=== PATIENT | male | born 1945 | race Caucasian/White ===

== ENCOUNTER 2019-01-07 10:00 | Outpatient (CLI) | payer MEDICARE, OTHER ==
--- NOTE | 2019-01-07 10:12 | RAD ---
Chest 2 views HISTORY: Dyspnea. COMPARISON: 06/14/2015. FINDINGS: Cardiac silhouette and pulmonary vasculature are unremarkable. Mediastinum is midline with aortic calcification. Lungs remain hyperinflated. No confluent airspace consolidation, pneumothorax, or pleural fluid. IMPRESSION: Atherosclerosis. Chronic-type findings are stable.
== END 2019-01-07 10:01 | disposition home or self-care (01) ==
LOC: RAD 10:00
PROVIDERS: ATTEND Internal Medicine Critical Care Medicine
DX: R06.00 Dyspnea, unspecified (principal); I70.0 Atherosclerosis of aorta
CPT/HCPCS: 71046

== ENCOUNTER 2019-04-09 10:32 | Inpatient (IN) | payer MEDICARE, BC ==
[2019-04-09 11:16] LABS: #Monocytes 0.4 thou/uL (0.11-0.59); #Neutrophils 5.3 thou/uL (1.40-6.50); %Basophils 0.6 % (0.0-1.0); %Eosinophils 0.5 % (0.0-10.0); %Lymphocytes 15.2 % (21.0-51.0); %Neutrophils 77.7 % (42.0-75.0); Hemoglobin 14.5 g/dL (14.0-18.0); Mean Corpuscular HGB CONC 33.5 g/dL (32.0-36.0); Mean Corpuscular Hemoglobin 34.1 pg (27.0-31.0); Platelet Count 178 thou/uL (130-400); RBC Distribution Width 13.3 % (11.5-14.5); Red Blood Cell (RBC) Count 4.26 mill/uL (4.70-6.10); White Blood Cell (WBC) Count 6.8 thou/uL (4.8-10.8)
[2019-04-09] MEDS ORDERED: methylPREDNISolone Sod Succ/PF 125 MG/2 ML VIAL ONE (11:16)
[2019-04-09 11:41] LABS: ALT (SGPT) 9 U/L (8-55); AST (SGOT) 32 U/L (5-34); Albumin 3.9 g/dL (3.4-4.8); Alkaline Phosphatase 87 U/L (40-150); Anion Gap 16 mmol/L (10-20); BUN (Urea Nitrogen) 16 mg/dL (8.4-25.7); Bilirubin, Total 1.3 mg/dL (0.2-1.2); Calc. Creatinine Clearance 0 mL/min (70-130); Calcium 9.5 mg/dL (7.8-10.44); Carbon Dioxide 22 mmol/L (23-31); Chloride 102 mmol/L (98-107); Estimated GFR-MDRD 57; Globulin 3.6 g/dL (2.4-3.5); Glucose 92 mg/dL (83-110); Potassium 5.8 mmol/L (3.5-5.1); Protein, Total 7.5 g/dL (5.8-8.1); Sodium 134 mmol/L (136-145)
[2019-04-09 11:41] LABS: Actual Bicarbonate (HCO3a) 19.4 mEq/L (22-28); Analyzer IN Cardio ER; Base Excess (BEa) -3.1 mEq/L (-2.0 to +3.0); CO2 Tension 28.5 mmHg (35.0-45.0); Calcium, Ionized 1.12 mmol/L (1.12-1.30); Carboxyhemoglobin (COHb) 1.6 gm% (0.0-3.0); Hemoglobin (Hb) 14.5 g/dL (14.0-18.0); O2 Tension (PaO2) 68.3 mmHg (> 70.0); Potassium - ABG Lab 4.68 mmol/L (3.70-5.30); pH, Arterial 7.45 (7.35-7.45)
[2019-04-09 11:42] LABS: ALV-art Gradient 45.805 (0-20); Puncture Site RRA
--- NOTE | 2019-04-09 11:59 | RAD ---
CHEST ONE VIEW: HISTORY: Shortness of breath. Chest pain. COMPARISON: Radiograph from 01/07/2019. FINDINGS: Heart size is enlarged. Moderate effusions. Mild pulmonary edema. No pneumothorax. IMPRESSION: Findings of congestive heart failure. POS: CET
[2019-04-09 12:00] LABS: CKMB 4.1 ng/mL (0-6.6)
[2019-04-09] MEDS ORDERED: Furosemide 40 MG/4 ML VIAL ONE ×2 (12:29→12:30)
[2019-04-09] MEDS ORDERED: Diltiazem 125 MG/25 ML ONE (12:29)
[2019-04-09] MEDS ORDERED: Lorazepam 0.5 MG TAB PO PRN (15:30)
[2019-04-09] MEDS ORDERED: Ondansetron PF 4 MG/2 ML Vial IVP PRN (15:37)
[2019-04-09] MEDS ORDERED: Bisacodyl 5 MG TAB PO PRN (15:37)
[2019-04-09] MEDS ORDERED: Acetaminophen 325 MG TAB PO PRN (15:37)
[2019-04-09] MEDS ORDERED: Diltiazem 125 MG in Sodium Chloride 0.9% 100 ML IVPB SCH (15:45)
[2019-04-09 15:48] LABS: Troponin I 0.109 ng/mL (< 0.028)
--- NOTE | 2019-04-09 16:27 | HP ---
PRIMARY CARE PROVIDER: None. STEEL FINISHER: Dr. Reddy. CHIEF COMPLAINT: Shortness of breath. HISTORY OF PRESENT ILLNESS: Mr. Zaidi is a pleasant 74-year-old gentleman, who was seen at [facility] on April 09, 2019. He is accompanied by his son, Gene, who works in the intensive care unit at [facility]. He has a history of COPD. He is followed by Dr. Reddy. Over the last few weeks, he has been having shortness of breath. The shortness of breath is worse with exertion. He also endorses orthopnea and paroxysmal nocturnal dyspnea. He denies lower extremity edema. He denies any weight gain. He reports that his chest is sore from coughing. He reports coughing a lot, with production of clear sputum. He reports on and off palpitations. He reports that his shortness of breath is worse particularly in the morning. He used to sleep on his belly in the past, but is now sleeping on his back with pillows. REVIEW OF SYSTEMS: All other systems were reviewed and found to be negative. PAST MEDICAL HISTORY: COPD and hepatitis C, treated with 1 year of medication. PAST SURGICAL HISTORY: Plastic surgery to ear and face from an accident. SOCIAL HISTORY: The patient reports drinking 4 to 5 beers a day. He smokes 1 pack of cigarettes a day. He denies any recreational drug use. FAMILY HISTORY: No family history of coronary artery disease. ALLERGIES: CODEINE. CURRENT MEDICATIONS: These need to be clarified. He is takin. Seroquel 50 mg at bedtime. 2. Ativan 0.5 mg 2 times a day. PHYSICAL EXAMINATION: GENERAL: On examination, Mr. Zaidi is awake and alert, not in acute distress. VITAL SIGNS: Blood pressure is 146/115, pulse 108, respiratory rate 18, and oxygen saturation 96% on room air. He is afebrile. EYES: No scleral icterus. No conjunctival pallor. ENT: Moist mucosal membranes. No oropharyngeal erythema or exudates. NECK: Supple, nontender. Trachea is midline. He has jugular venous distention. RESPIRATORY: Accessory muscles of breathing are active. Chest wall movements are symmetric bilaterally. Lung examination reveals diffuse expiratory wheeze. CARDIOVASCULAR: S1 and S2 are heard, tachycardic and regular. Peripheral pulses palpable. No carotid bruit. No pericardial rub. ABDOMEN: Soft, nontender, bowel sounds heard. NEUROLOGIC: Cranial nerves 2 through 12 are intact. MUSCULOSKELETAL: Power is 5/5 in all 4 extremities. SKIN: No rashes or subcutaneous nodules. Trace lower extremity edema. LYMPHATIC: No cervical lymphadenopathy. PSYCHIATRIC: Normal mood. Normal affect. The patient is oriented to person, place, and time. BODY HABITUS: The patient appears malnourished. LABORATORY AND DIAGNOSTIC DATA: Mr. Zaidi's labs and investigations were reviewed. Electrocardiogram shows atrial fibrillation with rapid ventricular response, no ST changes to suggest acute coronary syndrome. Chest x-ray shows moderate effusions and mild pulmonary edema. He has an unremarkable CBC. Decreased sodium of 134, elevated potassium of 5.8, decreased carbon dioxide of 22, normal blood urea nitrogen, normal creatinine, normal magnesium, elevated total bilirubin of 1.3, normal AST, normal ALT, and normal albumin. Troponin I is indeterminate at 0.144. BNP is elevated at 1588. ASSESSMENT AND PLAN: Mr. Zaidi is a pleasant 74-year-old gentleman, who was seen at [facility] on April 09, 2019. His problem list includes: 1. Atrial fibrillation with rapid ventricular response: Mr. Zaidi is presenting with atrial fibrillation with rapid ventricular response. He will be admitted to the hospital for further management. We will start him on a Cardizem drip. We will check 2D echocardiogram. His fall risk will need to be assessed. Physical Therapy Service will be consulted for the same. Once he is deemed safe for anticoagulation, he can be started on anticoagulation. For now, I am starting him on deep venous thrombosis prophylaxis with SCDs. 2. heart failure: The patient is also presenting with congestive heart failure, most likely precipitated by atrial fibrillation with rapid ventricular response. We will check 2D echocardiogram. We will administer furosemide. 3. Hyperkalemia: Mild, likely asymptomatic. We will administer Kayexalate and recheck. 4. Tobacco abuse: The patient will be started on nicotine replacement therapy. 5. Alcohol abuse: We will start him on ASE protocol. 6. Chronic obstructive pulmonary disease: He will be started on bronchodilators. He is currently wheezing and appears to have a significant component of chronic obstructive pulmonary disease to his shortness of breath. LEVEL OF RISK: Moderate. LEVEL OF COMPLEXITY: Moderate. Many thanks for allowing me to participate in your patient's care. Please feel free to contact me with any questions or concerns. Job ID: [id number]
[2019-04-09 18:11] LABS: Troponin I 0.084 ng/mL (< 0.028)
[2019-04-09] MEDS: Nicotine 21 MG PATCH TD SCH (18:26)
[2019-04-10] MEDS: Furosemide 40 MG/4 ML VIAL SLOW IVP SCH ×2 (05:21→15:11)
[2019-04-10 05:33] LABS: #Lymphocytes 0.5 thou/uL (1.20-3.40); #Monocytes 0.4 thou/uL (0.11-0.59); #Neutrophils 6.4 thou/uL (1.40-6.50); %Eosinophils 0.2 % (0.0-10.0); %Lymphocytes 6.8 % (21.0-51.0); %Monocytes 5.6 % (0.0-10.0); %Neutrophils 87.3 % (42.0-75.0); Hemoglobin 12.4 g/dL (14.0-18.0); Mean Corpuscular HGB CONC 32.6 g/dL (32.0-36.0); Mean Corpuscular Hemoglobin 33.1 pg (27.0-31.0); Mean Platelet Volume 8.2 fL (7.4-10.4); Platelet Count 166 thou/uL (130-400); RBC Distribution Width 13.3 % (11.5-14.5); Red Blood Cell (RBC) Count 3.74 mill/uL (4.70-6.10); White Blood Cell (WBC) Count 7.3 thou/uL (4.8-10.8)
[2019-04-10 06:01] LABS: Anion Gap 12 mmol/L (10-20); BUN (Urea Nitrogen) 22 mg/dL (8.4-25.7); Calc. Creatinine Clearance 52 mL/min (70-130); Calcium 8.8 mg/dL (7.8-10.44); Carbon Dioxide 24 mmol/L (23-31); Chloride 106 mmol/L (98-107); Estimated GFR-MDRD 59; Glucose 143 mg/dL (83-110); Potassium 3.9 mmol/L (3.5-5.1); Sodium 138 mmol/L (136-145)
[2019-04-10] MEDS ORDERED: Enoxaparin Sodium 40 MG/0.4 ML SYRINGE SC SCH (09:00)
[2019-04-10] MEDS ORDERED: Diltiazem 125 MG in Sodium Chloride 0.9% 100 ML IVPB SCH (15:15)
--- NOTE | 2019-04-10 15:59 | PDOC.PN ---
- Subjective Encounter Start Date: 04/10/19 Encounter Start Time: 07:40 Pt seen for followup re: afib with rvr. Did not sleep well. - Objective Resuscitation Status - Order Detail: 04/09/19 15:37 Resuscitation Status Routine Resuscitation Status: FULL: Full Resuscitation Discussed with: PATIENT AND SON JOAO Vital Signs & Weight: Vital Signs (12 hours) Temp Pulse Resp BP Pulse Ox 04/10/19 14:19 137 H 16 97 04/10/19 08:00 97 04/10/19 07:10 108 H 18 98 04/10/19 07:05 98.4 F 131 H 18 150/95 H 97 04/10/19 04:00 97.5 F L 127 H 20 137/103 H 96 Weight Admit Weight 146 lb Weight 146 lb Result Diagrams: 04/10/19 04:57 04/10/19 04:57 Dx/Plan (1) Atrial fibrillation with RVR Code(s): I48.91 - UNSPECIFIED ATRIAL FIBRILLATION Status: Acute Comment: Titrate cardizem drip PRN (2) CHF (congestive heart failure), NYHA class III Code(s): I50.9 - HEART FAILURE, UNSPECIFIED Status: Acute Comment: await 2D echo, continue furosemide (3) COPD (chronic obstructive pulmonary disease) Status: Chronic Comment: stable (4) Tobacco abuse Code(s): Z72.0 - TOBACCO USE Status: Chronic Comment: continue nicotine patch (5) Alcohol abuse Code(s): F10.10 - ALCOHOL ABUSE, UNCOMPLICATED Status: Chronic Comment: continue ASE protocol - Plan * . Review of Systems - Review of Systems Respiratory: Cough, SOB with Excertion, Sputum. negative: Dry, Shortness of Breath, Hemoptysis, Pleuritic Pain, Wheezing Cardiovascular: palpitations. negative: chest pain, orthopnea, paroxysmal nocturnal dyspnea, edema, light headedness - Medications/Allergies Allergies/Adverse Reactions: Allergies Allergy/AdvReac Type Severity Reaction Status Date / Time codeine Allergy Severe Verified 06/15/15 19:44 Medications: Current Medications Acetaminophen (Tylenol) 650 mg PO Q4H PRN PRN Reason: Headache/Fever/Mild Pain (1-3) Albuterol/Ipratropium (Duoneb) 3 ml NEB [id number] JUNAID Last Admin: 04/10/19 14:19 Dose: 3 ml Albuterol/Ipratropium (Duoneb) 3 ml NEB [id number] PRN PRN Reason: SOB &/or Wheezing Bisacodyl (Dulcolax) 10 mg PO DAILYPRN PRN PRN Reason: Constipation Furosemide (Lasix) 40 mg SLOW IVP 0600,1400 [facility] Last Admin: 04/10/19 15:11 Dose: 40 mg Diltiazem HCl 125 mg/ Sodium (Chloride) 125 mls @ 10 mls/hr IVPB INF JUNAID; Protocol Lorazepam (Ativan) 0.5 mg PO BID PRN PRN Reason: Anxiety Last Admin: 04/09/19 21:23 Dose: 0.5 mg Nicotine (Nicoderm Patch) 21 mg TD Q24HR [facility] Last Admin: 04/09/19 18:26 Dose: 21 mg Ondansetron HCl (Zofran) 4 mg IVP Q6H PRN PRN Reason: Nausea/Vomiting Quetiapine Fumarate (Seroquel) 50 mg PO HS [facility] Last Admin: 04/09/19 21:16 Dose: 50 mg
[2019-04-10] MEDS ORDERED: Amiodarone 150 MG, Admixture Fee 1 EACH in Dextrose 5% in Water 100 ML IVPB SCH (17:30)
[2019-04-10] MEDS ORDERED: Digoxin 0.5 MG/2 ML AMP SLOW IVP SCH (17:30)
--- NOTE | 2019-04-10 18:11 | CON ---
DATE OF CONSULTATION: HISTORY: Abelino Zaidi is a 74-year-old white male, admitted with atrial fibrillation with fast ventricular response. I did see him in August 2007 when he was referred for leg pain. He had normal peripheral pulses and he underwent lower extremity vascular Doppler here at [facility], which did not show any evidence of significant stenosis and was felt that his pain was not vascularly related. He now states over the last month he has had intermittent episodes of shortness of breath and has been seen by Dr. Reddy. Over the last month, he will become extremely short of breath with his heart beating very rapidly. He has felt this is probably due to anxiety or panic attacks due to losing his four and a half years ago, then his son four months ago. He was placed on anxiolytics and Seroquel by Dr. Reddy and that seemed to help his panic feeling; however, he states he still has the episodes of becoming short of breath and feeling his heart beating very rapidly. He ultimately came to the emergency room with that was found to be in atrial fibrillation with fast ventricular response. PAST MEDICAL HISTORY: COPD, hepatitis C, treated with one year medication. He denies any history of hypertension, diabetes, or hypercholesterolemia. OPERATIONS: Ear and face surgery after an accident. MEDICATIONS: 1. Lorazepam 0.5 mg p.r.n. 2. Seroquel 50 mg at bedtime. ALLERGIES: CODEINE. SOCIAL HISTORY: He smokes 1 pack per day. He drinks four or five beers per day. He has had life stresses as noted above with his 4-1/2 years ago and his son four months ago. FAMILY HISTORY: Negative for coronary artery disease. REVIEW OF SYSTEMS: A 10-point review of systems is otherwise unremarkable. PHYSICAL EXAMINATION: VITAL SIGNS: Blood pressure 136/89, pulse of 153, atrial fibrillation on the monitor. Currently he is on a Cardizem 10 mg/hour drip. HEENT: PERRL. NECK: Supple. CHEST: Reveals expiratory wheezing and decreased breath sounds at the bases. CARDIOVASCULAR: S1 and S2 normal without any S3, S4, or murmurs. ABDOMEN: Normal bowel sounds without tenderness or organomegaly. EXTREMITIES: Revealed no clubbing, cyanosis, or edema. NEUROLOGIC: Grossly intact. SKIN: Warm and dry. LABORATORY DATA: EKG reveals atrial fibrillation with fast ventricular response of 139 per minute, low QRS voltage in the limb leads. Chest x-ray reveals cardiomegaly with moderate effusions, mild pulmonary edema. Echocardiogram has been performed, apparently was not downloaded and could not read that at this time. Hemoglobin 12.4, hematocrit 38.0, white count 7,300. His hemoglobin did drop from 14.5 down to 12.4. INR 1.1. Ph of 7.45, pCO2 of 28.5, PO2 of 68.3. Sodium 138, potassium 3.9, chloride 106, carbon dioxide 24, BUN 22, and creatinine 1.21. Troponin I is up to 0.144. BNP 1588.2. IMPRESSION: 1. Atrial fibrillation with fast ventricular response associated with shortness of breath. He denies any chest discomfort. 2. Anxiety/depression. 3. Chronic obstructive pulmonary disease. 4. History of hepatitis C. 5. Drop in hemoglobin from 14.5 down to 12.4 since he was admitted. 6. Probable congestive heart failure with elevated BNP and bilateral pleural effusions, increased pulmonary vascularity. It is unclear at this time this is due to systolic failure or diastolic failure from his atrial fibrillation with fast ventricular response. PLAN: Mr. Zaidi does not have any history of falls or gastrointestinal bleed in the past and should be anticoagulated. However, I am somewhat hesitant to do that with his recent fall in his hemoglobin. This will continue to be monitored and stool guaiacs will be performed. He will continue to be diuresed. I will give him one dose of digoxin 0.5 mg to hopefully slow his rate. He also will be started on amiodarone for better rate control. We will continue to follow the patient with you. Job ID: [id number]
[2019-04-10] MEDS ORDERED: predniSONE 20 MG TAB PO SCH (18:15)
[2019-04-10] MEDS: Nicotine 21 MG PATCH TD SCH (18:18)
[2019-04-10] MEDS: Amiodarone 450 MG in Dextrose 5% in Water 250 ML IVPB SCH (18:18)
--- NOTE | 2019-04-10 18:26 | CON ---
DATE OF CONSULTATION: 04/10/2019 SERVICE: Pulmonary medicine. HISTORY OF PRESENT ILLNESS: The patient is a very pleasant 74-year-old white male with past medical history significant for history of atrial fibrillation. This is back in the 70s. He has not been on any medication for that for very long period of time. Either way, about six weeks ago, he started to have progressive dyspnea, and orthopnea. He was coughing. It was bringing up some white phlegm. Ultimately , it got so severe that he was waking up coughing and choking and gasping in the middle of the night, not being able to catch his breath for upwards of an hour and a half. He presented to the emergency department. He was discovered to be in atrial fibrillation with a rapid rate. Overnight, he was diuresed. He is feeling much improved at this point, although he is not back to baseline yet. His heart rate still not quite under control. He specifically denies any fevers. PAST MEDICAL HISTORY: 1. Atrial fibrillation. 2. COPD. 3. Hepatitis C. PAST SURGICAL HISTORY: Ear and face surgery secondary to remote accident. FAMILY HISTORY: Noncontributory. SOCIAL HISTORY: He drinks four or five beers on a daily basis. He smokes a pack of cigarettes on a daily basis. He quit about five days ago. Prior to that, he logged greater than a 50-pack year history. He denies any street drugs. He has no exposure to chemicals, dust, asbestos, or tuberculosis. ALLERGIES: CODEINE. MEDICATIONS: List of his inpatient medications was reviewed. Couple of small updates were made. REVIEW OF SYSTEMS: General, head, ears, eyes, nose, throat, cardiovascular, respiratory, GI, , musculoskeletal, neurologic, and skin are negative except as mention in the HPI. PHYSICAL EXAMINATION: VITAL SIGNS: Afebrile, pulse 153, blood pressure 136/89, respirations 18, saturation 96% on room air. GENERAL: The patient is awake and alert, in no apparent distress. LUNGS: Good air entry. There is a prolonged expiratory phase. Rhonchi and wheezing were all present. Crackles are present in the dependent regions. HEART: Normal rate and regular. ABDOMEN: Soft, nontender, nondistended. Bowel sounds are positive. MUSCULOSKELETAL: No cyanosis or clubbing. There is 1 to 2+ pitting in the bilateral lower extremities. NEUROLOGIC: Grossly nonfocal. LABORATORY DATA: WBC 7.3, hemoglobin 12.4, platelets 166,000. INR 1.1. PH 7.45, pCO2 of 28, PO2 of 68. Basic metabolic profile is otherwise unremarkable. His creatinine is stable at 1.2. This is likely his baseline. Bilirubin 1.3. Liver function studies are otherwise unremarkable. Troponin is downtrending to 0.084 with a BNP at a historic high of 1,500. Urinalysis is negative. Plasma alcohol level is negative. Blood cultures x2, influenza A and B and group A strep of the throat is negative. IMAGING: Chest x-ray demonstrates bilateral pleural effusions that are likely layering. Cephalization of bilateral lung truong is present. There is cardiomegaly present though this is an AP film. ASSESSMENT: 1. Acute hypoxic respiratory failure, resolved. 2. Chronic obstructive pulmonary disease with acute exacerbation. 3. Atrial fibrillation with rapid ventricular response. DISCUSSION AND PLAN: Echocardiogram is currently pending. I agree with diuretics. We will get him down to euvolemia. I will put him on a brief five-day course of steroids. I will change nebulized medications over to p.r.n. as they are significantly driving his heart rate up. I will give him a 5-day course of antibiotic. At this point, he is close to euvolemia. As such, I will decrease his Lasix to once daily. 70 minutes have been devoted to this patient in various activities. I personally reviewed all imaging studies and laboratory data noted within this document. For fifty percent of this time, I was interacting with the patient at the bedside or coordinating care with the care team. For the remainder of the time I was immediately available to the patient in the hospital unit. Job ID: [id number] [facility]
[2019-04-10] MEDS ORDERED: Enoxaparin Sodium 60 MG/0.6 ML SYRINGE SC SCH (21:00)
[2019-04-10] MEDS: Doxycycline 100 MG CAP PO SCH (21:10)
[2019-04-11] MEDS: Amiodarone 450 MG in Dextrose 5% in Water 250 ML IVPB SCH (02:04)
[2019-04-11 05:45] LABS: #Lymphocytes 0.4 thou/uL (1.20-3.40); #Monocytes 0.1 thou/uL (0.11-0.59); #Neutrophils 8.4 thou/uL (1.40-6.50); %Basophils 0.1 % (0.0-1.0); %Eosinophils 0.5 % (0.0-10.0); %Lymphocytes 4.3 % (21.0-51.0); %Monocytes 1.4 % (0.0-10.0); %Neutrophils 93.8 % (42.0-75.0); Hemoglobin 12.7 g/dL (14.0-18.0); Mean Corpuscular Hemoglobin 33.5 pg (27.0-31.0); Mean Platelet Volume 8.2 fL (7.4-10.4); Platelet Count 162 thou/uL (130-400); RBC Distribution Width 13.5 % (11.5-14.5); Red Blood Cell (RBC) Count 3.78 mill/uL (4.70-6.10); White Blood Cell (WBC) Count 8.9 thou/uL (4.8-10.8)
[2019-04-11] MEDS: Furosemide 40 MG/4 ML VIAL SLOW IVP SCH (05:46)
[2019-04-11 06:16] LABS: Anion Gap 14 mmol/L (10-20); BUN (Urea Nitrogen) 27 mg/dL (8.4-25.7); Calc. Creatinine Clearance 46 mL/min (70-130); Calcium 8.8 mg/dL (7.8-10.44); Carbon Dioxide 23 mmol/L (23-31); Chloride 105 mmol/L (98-107); Estimated GFR-MDRD 52; Glucose 142 mg/dL (83-110); Potassium 3.8 mmol/L (3.5-5.1); Sodium 138 mmol/L (136-145)
[2019-04-11] MEDS: Doxycycline 100 MG CAP PO SCH ×2 (09:02→20:27)
[2019-04-11] MEDS: predniSONE 20 MG TAB PO SCH (09:02)
--- NOTE | 2019-04-11 16:11 | PDOC.PN ---
- Subjective Encounter Start Date: 04/11/19 Encounter Start Time: 10:45 Doing well. Feels much better overall. Breathing better. Slept well for the first time is several days. - Objective Resuscitation Status - Order Detail: 04/09/19 15:37 Resuscitation Status Routine Resuscitation Status: FULL: Full Resuscitation Discussed with: PATIENT AND SON JOAO Vital Signs & Weight: Vital Signs (12 hours) Temp Pulse Pulse Pulse Resp BP BP 04/11/19 14:45 97.7 F 101 H 20 04/11/19 09:05 110 H 129 H 124/81 136/92 H 04/11/19 08:00 04/11/19 07:50 98.3 F 117 H 20 BP Pulse Ox 04/11/19 14:45 146/78 H 92 L 04/11/19 09:05 04/11/19 08:00 96 04/11/19 07:50 120/69 96 Weight Admit Weight 146 lb Weight 145 lb 12.8 oz I&O: 04/10/19 04/11/19 04/12/19 06:59 06:59 06:59 Intake Total 634 Balance 634 Result Diagrams: 04/11/19 05:27 04/11/19 05:27 Phys Exam - Physical Examination Constitutional: NAD Respiratory: no wheezing Minimal scattered rales. Cardiovascular: no significant murmur, irregular Borderline tachy. Gastrointestinal: soft, non-tender, no distention Neurological: non-focal Psychiatric: normal affect, A&O x 3 Dx/Plan (1) Atrial fibrillation with RVR Code(s): I48.91 - UNSPECIFIED ATRIAL FIBRILLATION Status: Acute Comment: Titrate cardizem drip PRN (2) Acute renal failure Status: Acute (3) CHF (congestive heart failure), NYHA class III Code(s): I50.9 - HEART FAILURE, UNSPECIFIED Status: Acute Comment: await 2D echo, continue furosemide (4) COPD (chronic obstructive pulmonary disease) Status: Chronic Comment: stable (5) Tobacco abuse Code(s): Z72.0 - TOBACCO USE Status: Chronic Comment: continue nicotine patch (6) Acute respiratory failure with hypoxia Code(s): J96.01 - ACUTE RESPIRATORY FAILURE WITH HYPOXIA Status: Acute (7) Alcohol use Code(s): Z72.89 - OTHER PROBLEMS RELATED TO LIFESTYLE Status: Acute (8) COPD exacerbation Code(s): J44.1 - CHRONIC OBSTRUCTIVE PULMONARY DISEASE W (ACUTE) EXACERBATION Status: Acute - Plan * Hemoglobin stable. No stool for hemoccult yet. * HR better on Cardizem gtt. * Changing nebs to PRN seemed to help as well. * Echo showed significant cardiomyopathy. Patient indicates Dr. Fletcher wanted to obtain more information from the echo. If EF accurate, will likely need workup for ischemia. * Cards following. * Renal failure is mild, new. * Not improving thus far. If not improving, consider renal US. * Admits to drinking 4-5 beers per day. Has macrocytosis. Will add thiamine, folate.
[2019-04-11] MEDS ORDERED: Thiamine 100 MG TAB PO SCH (16:30)
--- NOTE | 2019-04-11 17:04 | PRG ---
DATE OF SERVICE: 04/11/2019 SERVICE: Pulmonary Medicine. INTERVAL HISTORY: The patient got a fantastic night of sleep. He slept for 5 hours straight. There is a first time he got sleep in quite some time. He indicates his breathing has much improved. He is coughing and bringing up a little bit of white phlegm. It is actually settling down to a significant degree. He did not have any chest pain, nausea, or vomiting overnight. His appetite started to come around. PHYSICAL EXAMINATION: VITAL SIGNS: Afebrile. Pulse 101, blood pressure 146/78, respirations 20, and saturation 92% on room air. GENERAL: The patient is awake and alert, in no apparent distress. LUNGS: Good air entry. Prolonged expiratory phase and polyphonic wheezing are present in bibasilar region. The crackles have resolved. HEART: Normal rate. Irregular. ABDOMEN: Soft, nontender, and nondistended. Bowel sounds are positive. MUSCULOSKELETAL: No cyanosis or clubbing. He has trace pitting edema now, which is much better. LABORATORY DATA: WBC 8.9, hemoglobin 12.7, platelets 162,000. Creatinine 1.36, BUN 27. Both of these are gently up trending. Bicarb is 23 and roughly stable. TSH 3.37. IMAGING: Echocardiogram demonstrates 25% to 30% ejection fraction. There are bilateral pleural effusions noted. RV cavity is enlarged. Severe mitral regurgitation is present. ASSESSMENT: 1. Acute hypoxic respiratory failure, resolved. 2. Chronic obstructive pulmonary disease with mild exacerbation. 3. Atrial fibrillation with RVR. 4. Acute systolic and valvular heart failure. 5. Mitral regurgitation, severe. DISCUSSION AND PLAN: We will continue low-dose steroids for a total duration of 5 days. At some point, he will likely need to have his coronaries defined. Pulmonary will continue to follow intermittently during the hospital stay. Job ID: [id number]
[2019-04-11] MEDS: Nicotine 21 MG PATCH TD SCH (18:45)
[2019-04-11] MEDS ORDERED: Diltiazem 125 MG in Sodium Chloride 0.9% 100 ML IVPB SCH (19:42)
[2019-04-11] MEDS ORDERED: Digoxin 0.5 MG/2 ML AMP SLOW IVP SCH (19:45)
[2019-04-12 05:10] LABS: #Lymphocytes 0.8 thou/uL (1.20-3.40); #Monocytes 0.7 thou/uL (0.11-0.59); #Neutrophils 12.3 thou/uL (1.40-6.50); %Basophils 0.1 % (0.0-1.0); %Eosinophils 0.1 % (0.0-10.0); %Monocytes 4.9 % (0.0-10.0); Hemoglobin 13.6 g/dL (14.0-18.0); Mean Corpuscular HGB CONC 32.2 g/dL (32.0-36.0); Mean Corpuscular Hemoglobin 32.9 pg (27.0-31.0); Mean Platelet Volume 7.8 fL (7.4-10.4); Platelet Count 181 thou/uL (130-400); RBC Distribution Width 13.3 % (11.5-14.5); Red Blood Cell (RBC) Count 4.14 mill/uL (4.70-6.10); White Blood Cell (WBC) Count 13.8 thou/uL (4.8-10.8)
[2019-04-12 05:28] LABS: Anion Gap 11 mmol/L (10-20); BUN (Urea Nitrogen) 30 mg/dL (8.4-25.7); Calc. Creatinine Clearance 40 mL/min (70-130); Carbon Dioxide 26 mmol/L (23-31); Chloride 104 mmol/L (98-107); Estimated GFR-MDRD 44; Glucose 101 mg/dL (83-110); Potassium 3.4 mmol/L (3.5-5.1); Sodium 138 mmol/L (136-145)
[2019-04-12 06:00] LABS: Folate (Folic Acid) 7.9 ng/mL (7.0-31.4)
[2019-04-12] MEDS: Furosemide 40 MG/4 ML VIAL SLOW IVP SCH (06:28)
[2019-04-12] MEDS ORDERED: Carvedilol 3.125 MG TAB PO SCH (08:00)
[2019-04-12] MEDS ORDERED: Enoxaparin Sodium 60 MG/0.6 ML SYRINGE SC SCH (09:00)
--- NOTE | 2019-04-12 09:03 | PDOC.PN ---
- Subjective Encounter Start Date: 04/12/19 Encounter Start Time: 09:01 Subjective: sob much improved , no hx chest pain - Objective Resuscitation Status - Order Detail: 04/09/19 15:37 Resuscitation Status Routine Resuscitation Status: FULL: Full Resuscitation Discussed with: PATIENT AND SON JOAO JIMENEZ Reviewed: Yes Vital Signs & Weight: Vital Signs (12 hours) Temp Pulse Resp BP Pulse Ox 04/12/19 07:30 97.8 F 73 18 158/95 H 96 04/12/19 04:00 95 18 127/81 Weight Admit Weight 146 lb Weight 146 lb I&O: 04/11/19 04/12/19 04/13/19 06:59 06:59 06:59 Intake Total 634 275 Output Total 150 Balance 634 125 Result Diagrams: 04/12/19 04:44 04/12/19 04:44 Phys Exam - Physical Examination Neck: no JVD Respiratory: clear to auscultation bilateral Cardiovascular: no significant murmur, irregular Gastrointestinal: soft, positive bowel sounds Musculoskeletal: no edema Dx/Plan (1) Cardiomyopathy Code(s): I42.9 - CARDIOMYOPATHY, UNSPECIFIED Status: Acute Qualifiers: Cardiomyopathy type: unspecified Qualified Code(s): I42.9 - Cardiomyopathy , unspecified (2) Acute renal failure Status: Acute Qualifiers: Acute renal failure type: unspecified Qualified Code(s): N17.9 - Acute kidney failure, unspecified (3) Acute respiratory failure with hypoxia Code(s): J96.01 - ACUTE RESPIRATORY FAILURE WITH HYPOXIA Status: Acute (4) Atrial fibrillation with RVR Code(s): I48.91 - UNSPECIFIED ATRIAL FIBRILLATION Status: Resolved Comment: Titrate cardizem drip PRN (5) CHF (congestive heart failure), NYHA class III Code(s): I50.9 - HEART FAILURE, UNSPECIFIED Status: Acute Qualifiers: Congestive heart failure type: systolic Congestive heart failure chronicity : acute Qualified Code(s): I50.21 - Acute systolic (congestive) heart failure Comment: await 2D echo, continue furosemide (6) COPD exacerbation Code(s): J44.1 - CHRONIC OBSTRUCTIVE PULMONARY DISEASE W (ACUTE) EXACERBATION Status: Acute (7) Alcohol abuse Code(s): F10.10 - ALCOHOL ABUSE, UNCOMPLICATED Status: Chronic Comment: continue ASE protocol (8) Tobacco abuse Code(s): Z72.0 - TOBACCO USE Status: Chronic Comment: continue nicotine patch - Plan discuss need for cardiac cath with cardiology -: DC iv lasix, improved symptoms, adverse renal fcn -: cont coreg, no ZACK/ARB secondary to renal failure -: start spironolactone -: transition to po diltiazem * .
[2019-04-12] MEDS: Folic Acid 1 MG TAB PO SCH (09:19)
[2019-04-12] MEDS: Thiamine 100 MG TAB PO SCH (09:19)
[2019-04-12] MEDS: Doxycycline 100 MG CAP PO SCH ×2 (09:19→20:41)
[2019-04-12] MEDS: predniSONE 20 MG TAB PO SCH (09:19)
[2019-04-12] MEDS: Amiodarone 450 MG in Dextrose 5% in Water 250 ML IVPB SCH (09:55)
[2019-04-12] MEDS ORDERED: Enoxaparin Sodium 80 MG/0.8 ML SYRINGE SC SCH (10:00)
[2019-04-12] MEDS ORDERED: Sodium Chloride 0.9% 500 ML IV SCH (11:00)
[2019-04-12] MEDS ORDERED: Digoxin 0.25 MG TAB PO SCH (11:15)
[2019-04-12] MEDS ORDERED: Potassium Chloride 20 MEQ TAB PO SCH (11:15)
[2019-04-12] MEDS ORDERED: Cyanocobalamin 1000 MCG/ML VIAL IM SCH (11:15)
--- NOTE | 2019-04-12 11:41 | PRG ---
DATE OF SERVICE: 04/12/2019 SERVICE: Pulmonary Medicine. INTERVAL HISTORY: The patient has slept fantastic last night. He got 6 or 7 hours of sleep. He woke up this morning, feeling very comfortable. He had some leg cramping, but otherwise, he is feeling quite good. Denies any current chest discomfort, nausea, or vomiting. His heart rate is going up a little bit and his blood pressure is also going up a little bit. He does drink a little bit of alcohol. He is suggesting me it is 4 or 5 beers a day. Sometimes, it can be a lot more than that; however, based on when his son is telling me. He has had withdrawal features, but never seizures when he comes off alcohol. He is starting to feel a little jittery. PHYSICAL EXAMINATION: VITAL SIGNS: Afebrile, pulse 73, blood pressure 158/95, respirations 18, and saturation 96% on room air. GENERAL: The patient is awake and alert, in no apparent distress. LUNGS: Excellent air entry. There is a prolonged expiratory phase, but the crackles are gone. HEART: Tachycardic. Irregular. ABDOMEN: Soft, nontender, and nondistended. Bowel sounds are positive. MUSCULOSKELETAL: No cyanosis or clubbing. There is no pitting in the bilateral lower extremities any longer. NEUROLOGIC: Nonfocal. LABORATORY DATA: Potassium 3.4, creatinine is up trending to 1.56, and BUN 30. Basic metabolic profile is otherwise unremarkable. B12 and folic acid fall within the normal limits, though the B12 is just at the lower limits of normal. ASSESSMENT: 1. Acute hypoxic respiratory failure, resolved. 2. Chronic obstructive pulmonary disease with mild exacerbation. 3. Atrial fibrillation with rapid ventricular response. 4. Acute systolic and valvular heart failure. 5. Mitral regurgitation, severe. DISCUSSION AND PLAN: We will continue our steroids and p.r.n. nebulized medications. I will replace B12. He does have a history of withdrawal features from alcohol. As such, I am going to initiate an Ativan taper. Potassium chloride will be replaced. He is on schedule for cardiac catheterization on Friday, assuming we do not have any significant setbacks. Job ID: [id number]
[2019-04-12] MEDS: Lorazepam 1 MG TAB PO SCH ×2 (12:56→18:21)
[2019-04-12] MEDS: Carvedilol 6.25 MG TAB PO SCH (18:17)
[2019-04-12] MEDS: Amiodarone 200 MG TAB PO SCH (20:40)
[2019-04-12] MEDS: Enoxaparin Sodium 80 MG/0.8 ML SYRINGE SC SCH (20:41)
[2019-04-13] MEDS: Lorazepam 1 MG TAB PO SCH ×3 (01:12→11:44)
[2019-04-13 05:34] LABS: #Lymphocytes 0.9 thou/uL (1.20-3.40); #Monocytes 0.8 thou/uL (0.11-0.59); #Neutrophils 9.4 thou/uL (1.40-6.50); %Basophils 0.2 % (0.0-1.0); %Eosinophils 0.1 % (0.0-10.0); %Lymphocytes 8.2 % (21.0-51.0); %Monocytes 6.8 % (0.0-10.0); %Neutrophils 84.8 % (42.0-75.0); Hemoglobin 13.6 g/dL (14.0-18.0); Mean Corpuscular HGB CONC 31.9 g/dL (32.0-36.0); Mean Corpuscular Hemoglobin 32.8 pg (27.0-31.0); Platelet Count 168 thou/uL (130-400); RBC Distribution Width 13.3 % (11.5-14.5); Red Blood Cell (RBC) Count 4.14 mill/uL (4.70-6.10)
[2019-04-13 05:55] LABS: Anion Gap 11 mmol/L (10-20); BUN (Urea Nitrogen) 33 mg/dL (8.4-25.7); Calc. Creatinine Clearance 44 mL/min (70-130); Calcium 9.3 mg/dL (7.8-10.44); Carbon Dioxide 28 mmol/L (23-31); Cardiac Risk 2.6 (Less than 4.5); Chloride 104 mmol/L (98-107); Cholesterol 138 mg/dl (< 200 Desired); Estimated GFR-MDRD 50; Glucose 93 mg/dL (83-110); HDL Cholesterol 54 mg/dL (>60 Neg Risk); LDL Cholesterol, Calculated 68 mg/dL; Potassium 4.3 mmol/L (3.5-5.1); Sodium 139 mmol/L (136-145); Triglycerides 79 mg/dL (Less than 150)
--- NOTE | 2019-04-13 07:33 | RAD ---
XR Chest 1 View Portable History: Shortness of breath Comparison: Radiograph April 09, 2019 Findings: Mild interval size decrease/redistribution of layering pleural effusions. Low-grade edema. Heart size is enlarged. No pneumothorax. No acute osseous abnormality. Impression: Slight interval improvement of pulmonary edema with redistribution of layering pleural ef fusions, now subpulmonic.
[2019-04-13] MEDS: Amiodarone 200 MG TAB PO SCH ×2 (08:07→20:43)
[2019-04-13] MEDS: Cyanocobalamin (Vitamin B-12) 1,000 MCG TAB PO SCH (08:07)
[2019-04-13] MEDS: Spironolactone 25 MG TAB PO SCH (08:07)
[2019-04-13] MEDS: Folic Acid 1 MG TAB PO SCH (08:08)
[2019-04-13] MEDS: Digoxin 0.125 MG TAB PO SCH (08:08)
[2019-04-13] MEDS: Carvedilol 6.25 MG TAB PO SCH ×4 (08:08→20:44)
[2019-04-13] MEDS: Doxycycline 100 MG CAP PO SCH ×2 (08:08→20:44)
[2019-04-13] MEDS: predniSONE 20 MG TAB PO SCH (08:08)
[2019-04-13] MEDS: Thiamine 100 MG TAB PO SCH (08:08)
[2019-04-13] MEDS: Enoxaparin Sodium 80 MG/0.8 ML SYRINGE SC SCH ×2 (08:09→20:44)
[2019-04-13] MEDS: Communication Order-Pharmacy FS SCH (08:49)
[2019-04-13] MEDS: Sodium Chloride 0.9% 1,000 ML IV SCH (09:04)
--- NOTE | 2019-04-13 09:29 | PDOC.HOSPP ---
- Subjective Subjective: alert, no chest pain, sob, dizziness, edema - Objective Vital Signs & Weight: Vital Signs (12 hours) Temp Pulse Resp BP BP Pulse Ox 04/13/19 08:50 151/99 H 04/13/19 07:33 97.7 F 93 16 155/99 H 95 04/13/19 06:42 73 16 98 04/13/19 04:00 97.4 F L 94 19 157/97 H 97 04/12/19 23:31 84 16 97 Weight Admit Weight 146 lb Weight 142 lb 7 oz I&O: 04/12/19 04/13/19 04/14/19 06:59 06:59 06:59 Intake Total 275 1790.4 Output Total 150 2000 Balance 125 -209.6 Result Diagrams: 04/13/19 04:56 04/13/19 04:56 ROS - Review of Systems All systems: All other ROS were reviewed and found negative. - Medication Medications: Active Medications Generic Name Dose Route Start Last Admin Trade Name Freq PRN Reason Stop Dose Admin Albuterol/Ipratropium 3 ml 04/12/19 13:00 04/13/19 06:42 Duoneb NEB 3 ml [id number] JUNAID Administration Amiodarone HCl 400 mg 04/12/19 21:00 04/13/19 08:07 Cordarone PO 400 mg BID JUNAID Administration Carvedilol 6.25 mg 04/13/19 09:00 04/13/19 08:50 Coreg PO Not Given TID JUNAID Cyanocobalamin 1,000 mcg 04/13/19 09:00 04/13/19 08:07 Vitamin B-12 PO 1,000 mcg DAILY JUNAID Administration Digoxin 0.125 mg 04/13/19 09:00 04/13/19 08:08 Lanoxin PO 0.125 mg DAILY JUNAID Administration Doxycycline Hyclate 100 mg 04/10/19 21:00 04/13/19 08:08 Vibramycin PO 04/15/19 21:01 100 mg BID JUNAID Administration Enoxaparin Sodium 70 mg 04/12/19 21:00 04/13/19 08:09 Lovenox SC 04/13/19 23:00 70 mg 0900,2100 JUNAID Administration Folic Acid 1 mg 04/12/19 09:00 04/13/19 08:08 Folvite PO 1 mg DAILY JUNAID Administration Sodium Chloride 1,000 mls @ 50 mls/hr 04/13/19 08:30 04/13/19 09:04 Normal Saline 0.9% IV 1,000 mls .Q20H JUNAID Administration Lorazepam 0.5 mg 04/09/19 15:30 04/09/19 21:23 Ativan PO 0.5 mg BID PRN Administration Anxiety Lorazepam 2 mg 04/12/19 11:15 04/13/19 05:17 Ativan PO 04/13/19 11:16 Not Given Q6H JUNAID Miscellaneous Information 0 each 04/13/19 08:45 04/13/19 08:49 Communication Order-Pharmacy FS Not Given 0845 JUNAID Prednisone 40 mg 04/11/19 08:00 04/13/19 08:08 Prednisone PO 04/14/19 08:01 40 mg QAM-WM JUNAID Administration Quetiapine Fumarate 50 mg 04/09/19 21:00 04/12/19 20:41 Seroquel PO 50 mg HS JUNAID Administration Spironolactone 25 mg 04/13/19 08:00 04/13/19 08:07 Aldactone PO 25 mg QAM-WM JUNAID Administration Thiamine HCl 100 mg 04/12/19 09:00 04/13/19 08:08 Thiamine PO 100 mg DAILY JUNAID Administration - Exam NAD Neck: no JVD Heart: no murmur, irregular Respiratory: rales Gastrointestinal: soft, non-tender, normal bowel sounds Extremities: no edema Hosp A/P (1) Cardiomyopathy Code(s): I42.9 - CARDIOMYOPATHY, UNSPECIFIED Status: Acute Qualifiers: Cardiomyopathy type: unspecified Qualified Code(s): I42.9 - Cardiomyopathy , unspecified (2) Acute renal failure Status: Acute Qualifiers: Acute renal failure type: unspecified Qualified Code(s): N17.9 - Acute kidney failure, unspecified (3) Acute respiratory failure with hypoxia Code(s): J96.01 - ACUTE RESPIRATORY FAILURE WITH HYPOXIA Status: Acute (4) Atrial fibrillation with RVR Code(s): I48.91 - UNSPECIFIED ATRIAL FIBRILLATION Status: Resolved (5) CHF (congestive heart failure), NYHA class III Code(s): I50.9 - HEART FAILURE, UNSPECIFIED Status: Acute Qualifiers: Congestive heart failure type: systolic Congestive heart failure chronicity : acute Qualified Code(s): I50.21 - Acute systolic (congestive) heart failure (6) COPD exacerbation Code(s): J44.1 - CHRONIC OBSTRUCTIVE PULMONARY DISEASE W (ACUTE) EXACERBATION Status: Acute (7) Alcohol abuse Code(s): F10.10 - ALCOHOL ABUSE, UNCOMPLICATED Status: Chronic (8) Tobacco abuse Code(s): Z72.0 - TOBACCO USE Status: Chronic - Plan cont coreg , amiodarone. cardiac cath planned tomorrow . discussed with Dr Fletcher
[2019-04-13] MEDS: Lorazepam 0.5 MG TAB PO SCH ×3 (11:45→23:15)
--- NOTE | 2019-04-13 15:00 | PRG ---
DATE OF SERVICE: 04/13/2019 SERVICE: Pulmonary Medicine. INTERVAL HISTORY: The patient is doing fine from a respiratory standpoint. His nerves are actually quite stable right now. Denies any current fevers or chills. There were no overnight events. PHYSICAL EXAMINATION: VITAL SIGNS: Afebrile, pulse 74, blood pressure 138/89, respirations 15, and saturation 97% on room air. GENERAL: The patient is awake and alert, in no apparent distress. LUNGS: Very good air entry. There is a prolonged expiratory phase. I do not hear any wheezing, crackles, or rhonchi present. HEART: Normal rate and regular. ABDOMEN: Soft, nontender, and nondistended. Bowel sounds are positive. MUSCULOSKELETAL: No cyanosis or clubbing. No pitting in the bilateral lower extremities. NEUROLOGIC: Grossly nonfocal. He has anisocoria. LABORATORY DATA: WBC 11.0, hemoglobin 13.6 and stable, and platelets 168,000. Creatinine downtrending to 1.39. Basic metabolic profile is otherwise unremarkable. IMAGING STUDIES: Chest x-ray demonstrates interval improvement in the pulmonary edema. There is a subpulmonic effusion present. I believe, it is smaller. The carinal angle is improved suggesting left atrial dilation. ASSESSMENT: 1. Acute hypoxic respiratory failure, resolved. 2. Chronic obstructive pulmonary disease with acute exacerbation, mild. 3. Atrial fibrillation with rapid ventricular response. 4. Acute on chronic systolic and valvular heart failure. 5. Mitral regurgitation, severe. DISCUSSION AND PLAN: We will continue p.r.n. nebulized medications and low dose of steroid. He will likely go down for cardiac catheterization on Friday. Pulmonary/Critical Care will continue to follow along for the time being. Job ID: [id number]
[2019-04-13] MEDS ORDERED: Lorazepam 2 MG/ML VIAL SLOW IVP SCH (21:00)
[2019-04-13] MEDS ORDERED: Lorazepam 1 MG TAB PO SCH (21:00)
[2019-04-14] MEDS: Sodium Chloride 0.9% 1,000 ML IV SCH (03:26)
[2019-04-14] MEDS: Amiodarone 200 MG TAB PO SCH ×2 (05:26→20:44)
[2019-04-14] MEDS: Lorazepam 0.5 MG TAB PO SCH ×4 (05:26→23:07)
[2019-04-14] MEDS: Digoxin 0.125 MG TAB PO SCH (05:27)
[2019-04-14] MEDS: Carvedilol 6.25 MG TAB PO SCH ×3 (05:27→20:44)
[2019-04-14] MEDS ORDERED: Sodium Chloride 0.9% 1,000 ML IV SCH ×2 (06:00→08:01)
[2019-04-14 06:01] LABS: Anion Gap 12 mmol/L (10-20); BUN (Urea Nitrogen) 32 mg/dL (8.4-25.7); Calc. Creatinine Clearance 56 mL/min (70-130); Calcium 9.1 mg/dL (7.8-10.44); Carbon Dioxide 22 mmol/L (23-31); Chloride 107 mmol/L (98-107); Estimated GFR-MDRD 66; Glucose 93 mg/dL (83-110); Potassium 4.1 mmol/L (3.5-5.1); Sodium 137 mmol/L (136-145)
[2019-04-14 06:04] LABS: Digoxin 0.88 ng/mL (0.8-2.0)
[2019-04-14 06:10] LABS: Band 8 % (5-11); Hemoglobin 13.6 g/dL (14.0-18.0); Lymphocytes 9 % (21-51); MDiff Complete? YES; Mean Corpuscular HGB CONC 32.2 g/dL (32.0-36.0); Mean Corpuscular Hemoglobin 32.8 pg (27.0-31.0); Mean Platelet Volume 7.9 fL (7.4-10.4); Monocytes 8 % (0-10); Neutrophil 75 % (42-75); Platelet Count 173 thou/uL (130-400); RBC Distribution Width 13.1 % (11.5-14.5); Red Blood Cell (RBC) Count 4.15 mill/uL (4.70-6.10)
[2019-04-14] MEDS ORDERED: Heparin 10,000 UNITS/1 ML VIAL ONE (06:26)
[2019-04-14] MEDS ORDERED: Lidocaine 1% (PF) 30 ML VIAL ONE (06:26)
[2019-04-14] MEDS ORDERED: Fentanyl 100 MCG/2 ML VIAL ONE (06:52)
[2019-04-14] MEDS ORDERED: Midazolam HCl 2 mg/2 ml Vial ONE (06:52)
[2019-04-14] MEDS ORDERED: Atropine Sulfate 1 mg/10 ml Syringe ONE (07:26)
[2019-04-14] MEDS: Communication Order-Pharmacy FS SCH (07:26)
[2019-04-14] MEDS ORDERED: DOPamine 400 MG/D5W 250 ML 250 ML ONE (07:28)
[2019-04-14] MEDS ORDERED: Protamine Sulfate 50 MG/5 ML VIAL ONE (07:33)
[2019-04-14] MEDS ORDERED: Nitroglycerin 0.4 MG TAB (25 Tab Bottle) SL PRN (07:59)
[2019-04-14] MEDS ORDERED: Sodium Chloride 0.9% 200 ML IV PRN (07:59)
[2019-04-14] MEDS ORDERED: Furosemide 40 MG/4 ML VIAL SLOW IVP SCH (08:00)
[2019-04-14] MEDS: predniSONE 20 MG TAB PO SCH (09:11)
[2019-04-14] MEDS: Thiamine 100 MG TAB PO SCH (09:12)
[2019-04-14] MEDS: Spironolactone 25 MG TAB PO SCH (09:12)
[2019-04-14] MEDS: Cyanocobalamin (Vitamin B-12) 1,000 MCG TAB PO SCH (09:12)
[2019-04-14] MEDS: Doxycycline 100 MG CAP PO SCH ×2 (09:12→20:45)
[2019-04-14] MEDS: Folic Acid 1 MG TAB PO SCH (09:12)
--- NOTE | 2019-04-14 12:03 | PDOC.HOSPP ---
- Subjective Subjective: no sob, chest pain - Objective Vital Signs & Weight: Vital Signs (12 hours) Temp Pulse Resp BP Pulse Ox 04/14/19 08:15 97.3 F L 76 18 135/101 H 100 04/14/19 04:00 96.7 F L 85 15 164/115 H 97 Weight Admit Weight 146 lb Weight 143 lb 12.8 oz I&O: 04/13/19 04/14/19 04/15/19 06:59 06:59 06:59 Intake Total 1790.4 2970 Output Total 1999 1200 Balance -209.6 1770 Result Diagrams: 04/14/19 05:05 04/14/19 05:05 ROS - Review of Systems All systems: All other ROS were reviewed and found negative. - Medication Medications: Active Medications Generic Name Dose Route Start Last Admin Trade Name Freq PRN Reason Stop Dose Admin Albuterol/Ipratropium 3 ml 04/12/19 13:00 04/14/19 07:01 Duoneb NEB Not Given [id number] JUNAID Amiodarone HCl 400 mg 04/12/19 21:00 04/14/19 05:26 Cordarone PO 400 mg BID JUNAID Administration Carvedilol 6.25 mg 04/13/19 09:00 04/14/19 05:27 Coreg PO 6.25 mg TID JUNIAD Administration Cyanocobalamin 1,000 mcg 04/13/19 09:00 04/14/19 09:12 Vitamin B-12 PO 1,000 mcg DAILY JUNAID Administration Digoxin 0.125 mg 04/13/19 09:00 04/14/19 05:27 Lanoxin PO 0.125 mg DAILY JUNAID Administration Doxycycline Hyclate 100 mg 04/10/19 21:00 04/14/19 09:12 Vibramycin PO 04/15/19 21:01 100 mg BID JUNAID Administration Folic Acid 1 mg 04/12/19 09:00 04/14/19 09:12 Folvite PO 1 mg DAILY JUNAID Administration Sodium Chloride 1,000 mls @ 125 mls/hr 04/14/19 08:01 04/14/19 09:12 Normal Saline 0.9% IV 04/14/19 14:00 Not Given .Q8H JUNAID Lorazepam 0.5 mg 04/09/19 15:30 04/09/19 21:23 Ativan PO 0.5 mg BID PRN Administration Anxiety Lorazepam 0.5 mg 04/13/19 12:00 04/14/19 05:26 Ativan PO 0.5 mg Q6HR JUNAID Administration Miscellaneous Information 0 each 04/13/19 08:45 04/14/19 07:26 Communication Order-Pharmacy FS Not Given 0845 JUNAID Quetiapine Fumarate 50 mg 04/09/19 21:00 04/13/19 20:44 Seroquel PO 50 mg HS JUNAID Administration Spironolactone 25 mg 04/13/19 08:00 04/14/19 09:12 Aldactone PO 25 mg QAM-WM JUNAID Administration Thiamine HCl 100 mg 04/12/19 09:00 04/14/19 09:12 Thiamine PO 100 mg DAILY JUNAID Administration - Exam Neck: no JVD Heart: RRR, murmur present, II/IV Respiratory: CTAB, no wheezes, no rales Gastrointestinal: soft, non-tender, normal bowel sounds Extremities: no edema Hosp A/P (1) Cardiomyopathy Code(s): I42.9 - CARDIOMYOPATHY, UNSPECIFIED Status: Acute Qualifiers: Cardiomyopathy type: unspecified Qualified Code(s): I42.9 - Cardiomyopathy , unspecified (2) Acute renal failure Status: Acute Qualifiers: Acute renal failure type: unspecified Qualified Code(s): N17.9 - Acute kidney failure, unspecified (3) Acute respiratory failure with hypoxia Code(s): J96.01 - ACUTE RESPIRATORY FAILURE WITH HYPOXIA Status: Acute (4) Atrial fibrillation with RVR Code(s): I48.91 - UNSPECIFIED ATRIAL FIBRILLATION Status: Resolved (5) CHF (congestive heart failure), NYHA class III Code(s): I50.9 - HEART FAILURE, UNSPECIFIED Status: Acute Qualifiers: Congestive heart failure type: systolic Congestive heart failure chronicity : acute Qualified Code(s): I50.21 - Acute systolic (congestive) heart failure (6) COPD exacerbation Code(s): J44.1 - CHRONIC OBSTRUCTIVE PULMONARY DISEASE W (ACUTE) EXACERBATION Status: Acute (7) Alcohol abuse Code(s): F10.10 - ALCOHOL ABUSE, UNCOMPLICATED Status: Chronic (8) Tobacco abuse Code(s): Z72.0 - TOBACCO USE Status: Chronic (9) Mitral insufficiency Status: Acute - Plan plan discussed w/ family cath revealed 605 main left stenosis and severe mitral insuff. LILIAM 04/15 and probable cabg and mitral valve surgery 04/16
--- NOTE | 2019-04-14 14:44 | PRG ---
DATE OF SERVICE: 04/14/2019 SERVICE: Pulmonary Medicine. INTERVAL HISTORY: The patient is doing okay from respiratory standpoint. He is breathing comfortably. He denies any nausea, vomiting, or diarrhea. He got done with his cardiac catheterization today demonstrating significant disease in the LAD, in the circ. That being said, it is not severe enough that it contributed to our presentation in a significant way. There were no overnight events. His nebulized medications have been scheduled again, but he specifically did not ask for any. His breathing has been fine, he slept well last night. He is going to go down for a LILIAM tomorrow to see whether or not the mitral valve is a minimal to surgical intervention here. PHYSICAL EXAMINATION: VITAL SIGNS: Afebrile, pulse 71, blood pressure 149/99, respirations 18, and saturation 97% on 2 L nasal cannula. GENERAL: The patient is awake and alert, in no apparent distress. LUNGS: Decent air entry. No prolonged expiratory phase is present. Dependent crackles are minimal. No rhonchi or wheezing. HEART: Normal rate. Irregular. ABDOMEN: Soft, nontender, and nondistended. Bowel sounds positive. MUSCULOSKELETAL: No cyanosis or clubbing. There is no pitting in the bilateral lower extremities. NEUROLOGIC: Grossly nonfocal. LABORATORY DATA: CBC is completely unremarkable/stable. Creatinine 1.10 and downtrending to the normal range. Basic metabolic profile is otherwise unremarkable. ASSESSMENT: 1. Acute hypoxic respiratory failure, resolved. 2. Chronic obstructive pulmonary disease with mild exacerbation. 3. Atrial fibrillation with rapid ventricular response. 4. Acute on chronic systolic and valvular heart failure. 5. Mitral regurgitation, severe. 6. Coronary artery disease. DISCUSSION AND PLAN: I will continue to follow along, intermittently while the patient remains inhouse. At this point, he is optimized to proceed with any type of surgical intervention from a lung standpoint. We will have a better idea what course of action will be taking moving forward once his LILIAM has been completed. Job ID: [id number]
[2019-04-14] MEDS ORDERED: Iopamidol 370 76% 100 ML VIAL ONE (15:27)
[2019-04-14] MEDS: Atorvastatin Calcium 10 MG TAB PO SCH (20:44)
--- NOTE | 2019-04-15 00:27 | CON ---
DATE OF CONSULTATION: HISTORY OF PRESENT ILLNESS: Mr. Zaidi is a 74-year-old gentleman who presents to the emergency department with severe shortness of breath. He has history of COPD and initially thought this was his problem. Chest x-ray showed fluid overload with bilateral small effusions and cephalization. He has been coughing. He has history of palpitations in the 1970s and was having palpitations again prior to his admission. In comparison to a chest x-ray performed in December, his cardiac silhouette is grossly enlarged over the last 3 months. As part of his workup, he had an echocardiogram performed, which showed severe mitral regurgitation and left atrial dilatation. Ejection fraction was approximately 30%. He underwent cardiac catheterization today which shows approximately 50% left main stenosis. On ventriculogram, there was severe mitral regurgitation. His ejection fraction again is approximately 30%. He is to get a LILIAM for further mitral valve interrogation tomorrow. Currently, he is resting comfortably. He said he feels much better than at the time of admission. PAST MEDICAL HISTORY: 1. Hepatitis C, treated with one-year medication for cure. 2. COPD. PAST SURGICAL HISTORY: Ear and face surgeries secondary to a remote accident. SOCIAL HISTORY: He drinks about 4 beers every night. He smokes a pack of cigarettes a day-he states he quit 4 days before he was admitted to the hospital. Not using any other substances. ALLERGIES: CODEINE. MEDICATIONS: At home; 1. Ativan 0.5 mg p.r.n. 2. Seroquel 50 mg at bedtime. REVIEW OF SYSTEMS: A 10-point review of systems is performed and is negative except as above. PHYSICAL EXAMINATION: GENERAL: This is a thin, almost cachectic-appearing gentleman, resting comfortably in bed. VITAL SIGNS: His temperature is 98.4, pulse is 87 and regular, blood pressure is 156/94. HEENT: Sclerae are nonicteric. Pupils are equal and round bilaterally. NECK: Supple. He has no carotid bruit. No adenopathy. CHEST: Clear bilaterally. HEART: Rhythm is irregularly irregular. He has atrial fibrillation on his monitor strip. There is a systolic murmur heard best in his axilla. ABDOMEN: Scaphoid, soft, and nontender. EXTREMITIES: There is no edema. VASCULAR: He has palpable carotid, radial, femoral, dorsalis pedis pulses bilaterally. VENOUS: There are no venous varicosities or stasis changes. PSYCHIATRIC: He is awake, alert, and oriented to person, place, and time. LABORATORY DATA: Of note, his hemoglobin is 13.6, platelet count is 173,000. Potassium 4.1, creatinine is 1.10. ASSESSMENT AND PLAN: This is a 74-year-old gentleman with severe mitral regurgitation and moderate left main stenosis. He is due to get a LILIAM tomorrow to allow us to look at his mitral valve and critically evaluate the structural components of the valve. If this is something we feel like we can repair, we would certainly plan for mitral valve repair, coronary artery bypass grafting with mammary artery to LAD and saphenous vein graft to his OM, ligation of left atrial appendage. We will discuss this further after his LILIAM tomorrow. Job ID: [id number]
[2019-04-15 05:21] LABS: #Lymphocytes 0.9 thou/uL (1.20-3.40); #Monocytes 0.6 thou/uL (0.11-0.59); #Neutrophils 6.7 thou/uL (1.40-6.50); %Basophils 0.3 % (0.0-1.0); %Eosinophils 0.1 % (0.0-10.0); %Monocytes 7.4 % (0.0-10.0); %Neutrophils 81.2 % (42.0-75.0); Hemoglobin 14.3 g/dL (14.0-18.0); Mean Corpuscular HGB CONC 33.8 g/dL (32.0-36.0); Mean Corpuscular Hemoglobin 33.8 pg (27.0-31.0); Mean Platelet Volume 7.9 fL (7.4-10.4); Platelet Count 187 thou/uL (130-400); RBC Distribution Width 12.9 % (11.5-14.5); Red Blood Cell (RBC) Count 4.22 mill/uL (4.70-6.10); White Blood Cell (WBC) Count 8.2 thou/uL (4.8-10.8)
[2019-04-15] MEDS: Carvedilol 6.25 MG TAB PO SCH ×3 (05:40→21:32)
[2019-04-15 05:41] LABS: Anion Gap 12 mmol/L (10-20); BUN (Urea Nitrogen) 33 mg/dL (8.4-25.7); Calc. Creatinine Clearance 45 mL/min (70-130); Carbon Dioxide 26 mmol/L (23-31); Chloride 105 mmol/L (98-107); Estimated GFR-MDRD 52; Glucose 106 mg/dL (83-110); Potassium 3.8 mmol/L (3.5-5.1); Sodium 139 mmol/L (136-145)
[2019-04-15] MEDS: Lorazepam 0.5 MG TAB PO SCH ×3 (05:41→18:06)
[2019-04-15] MEDS: Communication Order-Pharmacy FS SCH (07:23)
[2019-04-15] MEDS: Amiodarone 200 MG TAB PO SCH ×2 (08:56→21:31)
[2019-04-15] MEDS: Digoxin 0.125 MG TAB PO SCH (08:56)
--- NOTE | 2019-04-15 11:33 | PDOC.HOSPP ---
- Subjective Subjective: stable,no sob - Objective Vital Signs & Weight: Vital Signs (12 hours) Temp Pulse Resp BP BP Pulse Ox 04/15/19 07:54 97.6 F 65 18 166/113 H 96 04/15/19 06:59 61 16 95 04/15/19 03:52 97.8 F 80 12 143/90 H 93 L Weight Admit Weight 146 lb Weight 139 lb 12.8 oz I&O: 04/14/19 04/15/19 04/16/19 06:59 06:59 06:59 Intake Total 2970 1320 Output Total 1200 1180 Balance 1770 140 Result Diagrams: 04/15/19 04:57 04/15/19 04:57 ROS - Review of Systems All systems: All other ROS were reviewed and found negative. - Medication Medications: Active Medications Generic Name Dose Route Start Last Admin Trade Name Freq PRN Reason Stop Dose Admin Albuterol/Ipratropium 3 ml 04/12/19 13:00 04/15/19 06:59 Duoneb NEB 3 ml [id number] JUNAID Administration Amiodarone HCl 400 mg 04/12/19 21:00 04/15/19 08:56 Cordarone PO 400 mg BID JUNAID Administration Atorvastatin Calcium 10 mg 04/14/19 21:00 04/14/19 20:44 Lipitor PO 10 mg HS JUNAID Administration Carvedilol 6.25 mg 04/13/19 09:00 04/15/19 05:40 Coreg PO 6.25 mg TID JUNAID Administration Cyanocobalamin 1,000 mcg 04/13/19 09:00 04/14/19 09:12 Vitamin B-12 PO 1,000 mcg DAILY JUNAID Administration Digoxin 0.125 mg 04/13/19 09:00 04/15/19 08:56 Lanoxin PO 0.125 mg DAILY JUNAID Administration Doxycycline Hyclate 100 mg 04/10/19 21:00 04/14/19 20:45 Vibramycin PO 04/15/19 21:01 100 mg BID JUNAID Administration Folic Acid 1 mg 04/12/19 09:00 04/14/19 09:12 Folvite PO 1 mg DAILY JUNAID Administration Lorazepam 0.5 mg 04/09/19 15:30 04/09/19 21:23 Ativan PO 0.5 mg BID PRN Administration Anxiety Lorazepam 0.5 mg 04/13/19 12:00 04/15/19 05:41 Ativan PO 0.5 mg Q6HR JUNAID Administration Miscellaneous Information 0 each 04/13/19 08:45 04/15/19 07:23 Communication Order-Pharmacy FS Not Given 0845 JUNAID Quetiapine Fumarate 50 mg 04/09/19 21:00 04/14/19 20:45 Seroquel PO 50 mg HS JUNAID Administration Spironolactone 25 mg 04/13/19 08:00 04/14/19 09:12 Aldactone PO 25 mg QAM-WM JUNAID Administration Thiamine HCl 100 mg 04/12/19 09:00 04/14/19 09:12 Thiamine PO 100 mg DAILY JUNAID Administration - Exam Neck: JVD Heart: RRR, murmur present, II/IV Respiratory: CTAB Gastrointestinal: soft, normal bowel sounds Extremities: no edema Hosp A/P (1) Cardiomyopathy Code(s): I42.9 - CARDIOMYOPATHY, UNSPECIFIED Status: Acute Qualifiers: Cardiomyopathy type: unspecified Qualified Code(s): I42.9 - Cardiomyopathy , unspecified (2) Acute renal failure Status: Acute Qualifiers: Acute renal failure type: unspecified Qualified Code(s): N17.9 - Acute kidney failure, unspecified (3) Acute respiratory failure with hypoxia Code(s): J96.01 - ACUTE RESPIRATORY FAILURE WITH HYPOXIA Status: Acute (4) Atrial fibrillation with RVR Code(s): I48.91 - UNSPECIFIED ATRIAL FIBRILLATION Status: Resolved (5) CHF (congestive heart failure), NYHA class III Code(s): I50.9 - HEART FAILURE, UNSPECIFIED Status: Acute Qualifiers: Congestive heart failure type: systolic Congestive heart failure chronicity : acute Qualified Code(s): I50.21 - Acute systolic (congestive) heart failure (6) COPD exacerbation Code(s): J44.1 - CHRONIC OBSTRUCTIVE PULMONARY DISEASE W (ACUTE) EXACERBATION Status: Acute (7) Alcohol abuse Code(s): F10.10 - ALCOHOL ABUSE, UNCOMPLICATED Status: Chronic (8) Tobacco abuse Code(s): Z72.0 - TOBACCO USE Status: Chronic (9) Mitral insufficiency Status: Acute - Plan awaiting LILIAM for decision on surgery, cont current tx
[2019-04-15] MEDS ORDERED: PROPOFOL 200 MG/20 ML VIAL ONE (12:23)
[2019-04-15] MEDS ORDERED: PROPOFOL 20 ML ONE ×2 (12:34→12:46)
--- NOTE | 2019-04-15 13:52 | OP ---
DATE OF PROCEDURE: 04/15/2019 INDICATION: A 74-year-old gentleman with severe mitral regurgitation. DESCRIPTION OF PROCEDURE: The patient was taken to the PACU. The patient was sedated by Anesthesiology. A transesophageal probe was placed into the distal esophagus and stomach. Echocardiographic images were obtained. The transesophageal probe was removed. FINDINGS: 1. Severe decrease in left systolic function. 2. Biatrial enlargement. 3. The right ventricle is dilated. 4. Dysfunction of the posterior mitral valve leaflet with poor coaptation. 5. Severe mitral regurgitation. 6. Moderate tricuspid regurgitation. 7. Mild aortic regurgitation. 8. Patent atherosclerotic debris in the descending aorta. IMPRESSION: Dysfunction of the posterior mitral valve leaflet with severe mitral regurgitation. Job ID: [id number]
[2019-04-15] MEDS: Cyanocobalamin (Vitamin B-12) 1,000 MCG TAB PO SCH (15:31)
[2019-04-15] MEDS: Folic Acid 1 MG TAB PO SCH (15:31)
[2019-04-15] MEDS: Spironolactone 25 MG TAB PO SCH (15:31)
[2019-04-15] MEDS: Doxycycline 100 MG CAP PO SCH ×2 (15:31→21:32)
[2019-04-15] MEDS: Thiamine 100 MG TAB PO SCH (15:31)
[2019-04-15] MEDS ORDERED: Diazepam 5 MG TAB PO PRN (17:23)
[2019-04-15] MEDS ORDERED: Communication Order-Pharmacy FS ONE (17:23)
[2019-04-15] MEDS: Atorvastatin Calcium 10 MG TAB PO SCH (21:32)
[2019-04-16] MEDS: Lorazepam 0.5 MG TAB PO SCH ×2 (00:13→05:18)
[2019-04-16] MEDS: Carvedilol 6.25 MG TAB PO SCH (05:19)
[2019-04-16 05:30] LABS: #Eosinphils 0.1 thou/uL (0.0-0.7); #Lymphocytes 1.6 thou/uL (1.20-3.40); #Monocytes 0.6 thou/uL (0.11-0.59); #Neutrophils 4.1 thou/uL (1.40-6.50); %Basophils 0.2 % (0.0-1.0); %Eosinophils 1.5 % (0.0-10.0); %Lymphocytes 25.3 % (21.0-51.0); %Monocytes 9.2 % (0.0-10.0); %Neutrophils 63.8 % (42.0-75.0); Hemoglobin 13.9 g/dL (14.0-18.0); Mean Corpuscular HGB CONC 34.1 g/dL (32.0-36.0); Mean Corpuscular Hemoglobin 34.1 pg (27.0-31.0); Mean Platelet Volume 7.5 fL (7.4-10.4); Platelet Count 188 thou/uL (130-400); RBC Distribution Width 12.9 % (11.5-14.5); Red Blood Cell (RBC) Count 4.07 mill/uL (4.70-6.10); White Blood Cell (WBC) Count 6.4 thou/uL (4.8-10.8)
[2019-04-16 05:48] LABS: Anion Gap 10 mmol/L (10-20); BUN (Urea Nitrogen) 37 mg/dL (8.4-25.7); Calc. Creatinine Clearance 40 mL/min (70-130); Calcium 9.2 mg/dL (7.8-10.44); Carbon Dioxide 28 mmol/L (23-31); Chloride 106 mmol/L (98-107); Estimated GFR-MDRD 47; Glucose 85 mg/dL (83-110); Potassium 3.7 mmol/L (3.5-5.1); Sodium 140 mmol/L (136-145)
[2019-04-16] MEDS ORDERED: Vancomycin HCl 1 GM in Premix Bag 1 BAG IVPB SCH (06:30)
[2019-04-16] MEDS ORDERED: Albumin 5% 500 ML ONE (06:31)
[2019-04-16] MEDS ORDERED: Dexamethasone 4 mg/ml Vial ONE (06:31)
[2019-04-16] MEDS ORDERED: Bupivacaine HCl 0.5%/Epinephrine 1:200,000/PF 30 ml Vial ONE (06:31)
[2019-04-16] MEDS ORDERED: Vecuronium 10 MG VIAL ONE ×2 (06:33→15:45)
[2019-04-16] MEDS ORDERED: Dexmedetomidine 200 MCG/2 ML VIAL ONE (06:33)
[2019-04-16] MEDS ORDERED: Midazolam HCl 5 mg/5 ml Vial ONE (06:33)
[2019-04-16] MEDS ORDERED: Fentanyl 100 MCG/2 ML VIAL ONE (06:33)
[2019-04-16] MEDS ORDERED: Midazolam HCl 2 mg/2 ml Vial ONE (06:33)
[2019-04-16] MEDS ORDERED: Milrinone 10 MG/10 ML VIAL ONE (06:57)
[2019-04-16] MEDS ORDERED: CEFAZOLIN 1 GM VIAL SLOW IVP SCH (07:30)
[2019-04-16] MEDS ORDERED: CEFAZOLIN 2 GM, Admixture Fee 1 EACH in Sodium Chloride 0.9% 100 ML IVPB SCH (07:30)
[2019-04-16] MEDS ORDERED: Heparin 10,000 UNITS/1 ML VIAL 30,000 UNITS in Sodium Chloride 0.9% 1,000 ML FS SCH (07:45)
[2019-04-16] MEDS: Spironolactone 25 MG TAB PO SCH (09:52)
[2019-04-16] MEDS: Communication Order-Pharmacy FS SCH (09:52)
[2019-04-16] MEDS ORDERED: Nitroglycerin 50 MG/250 ML BOT 250 ML ONE (13:17)
[2019-04-16] MEDS ORDERED: Promethazine HCl 25 MG/ML VIAL IM PRN (13:30)
[2019-04-16] MEDS ORDERED: D5 1/2 NS w/20 mEq KCL 1,000 ML IV SCH (13:30)
[2019-04-16] MEDS ORDERED: Potassium Chloride 20 MEQ/100 ML PREMIX BAG IVPB PRN (13:30)
[2019-04-16] MEDS ORDERED: Bisacodyl 10 MG SUPP PR PRN (13:30)
[2019-04-16] MEDS ORDERED: Guaifenesin DM 100-10/5 ML UDCUP PO PRN (13:30)
[2019-04-16] MEDS ORDERED: Hetastarch 6% 500 ML 500 ML IVPB PRN (13:30)
[2019-04-16] MEDS ORDERED: Acetaminophen 325 MG TAB PO PRN (13:30)
[2019-04-16] MEDS ORDERED: Bisacodyl 5 MG TAB PO PRN (13:30)
[2019-04-16] MEDS ORDERED: Fentanyl 100 MCG/2 ML VIAL SLOW IVP PRN ×2 (13:30)
[2019-04-16] MEDS ORDERED: Norepinephrine 8 MG/0.9% NS 250 ML IVPB PRN (13:30)
[2019-04-16] MEDS ORDERED: Ondansetron PF 4 MG/2 ML Vial IVP PRN (13:30)
[2019-04-16] MEDS ORDERED: CEFAZOLIN 2 GM in Premix Bag 1 BAG IVPB SCH (13:30)
[2019-04-16] MEDS ORDERED: Nitroglycerin 50 MG/250 ML BOT 250 ML IVPB PRN (13:30)
[2019-04-16] MEDS ORDERED: Mag-Al 1200 mg/1200 mg/30 ML UDCUP PO PRN (13:30)
[2019-04-16] MEDS ORDERED: Magnesium 2 GM/50 ML 1 GM in Premix Bag 1 BAG IVPB SCH (13:30)
[2019-04-16 13:52] LABS: Actual Bicarbonate (HCO3a) 24.4 mEq/L (22-28); Base Excess (BEa) -0.5 mEq/L (-2.0 to +3.0); CO2 Tension 40.9 mmHg (35.0-45.0); Calcium, Ionized 1.05 mmol/L (1.12-1.30); Hemoglobin (Hb) 11.7 g/dL (14.0-18.0); O2 Tension (PaO2) 184.6 mmHg (> 70.0); pH, Arterial 7.39 (7.35-7.45)
[2019-04-16 13:53] LABS: ALV-art Gradient 120.775 (0-20); Puncture Site ALINE
[2019-04-16 13:53] LABS: Hemoglobin 11.2 g/dL (14.0-18.0); Mean Corpuscular HGB CONC 34.5 g/dL (32.0-36.0); Mean Corpuscular Hemoglobin 34.4 pg (27.0-31.0); Mean Corpuscular Volume 99.9 fL (78.0-98.0); Platelet Count 124 thou/uL (130-400); RBC Distribution Width 12.8 % (11.5-14.5); Red Blood Cell (RBC) Count 3.25 mill/uL (4.70-6.10); White Blood Cell (WBC) Count 14.1 thou/uL (4.8-10.8)
[2019-04-16 13:55] LABS: INR-International Normal Ratio 1.5; Prothrombin Time 18.1 SEC (12.0-14.7)
[2019-04-16] MEDS ORDERED: Dextrose 5% in Water 1,000 ML IV PRN (13:56)
[2019-04-16] MEDS ORDERED: Dextrose 50% Abboject 50 ML SYRINGE SLOW IVP PRN (13:56)
[2019-04-16] MEDS ORDERED: Insulin Regular 300 UNITS/3 ML VIAL SC PRN (13:56)
[2019-04-16] MEDS ORDERED: HUMULIN R 100 UNITS in Sodium Chloride 0.9% 100 ML IVPB SCH (13:56)
[2019-04-16 14:07] LABS: Band 13 % (5-11); Lymphocytes 2 % (21-51); MDiff Complete? YES; Metamyelocyte 1 % (0-0); Monocytes 3 % (0-10); Neutrophil 80 % (42-75); Platelet Morphology Comment Appears Decreased; Polychromasia SLIGHT = 2-3 cells (100X) (0-2/hpf)
[2019-04-16 14:21] LABS: Anion Gap 11 mmol/L (10-20); BUN (Urea Nitrogen) 28 mg/dL (8.4-25.7); Calc. Creatinine Clearance 53 mL/min (70-130); Calcium 7.5 mg/dL (7.8-10.44); Carbon Dioxide 23 mmol/L (23-31); Chloride 108 mmol/L (98-107); Estimated GFR-MDRD 65; Glucose 142 mg/dL (83-110); Sodium 138 mmol/L (136-145)
[2019-04-16] MEDS: CEFAZOLIN 2 GM, Admixture Fee 1 EACH in Sodium Chloride 0.9% 100 ML IVPB SCH (14:44)
--- NOTE | 2019-04-16 14:59 | OP ---
DATE OF PROCEDURE: 04/16/2019 PREOPERATIVE DIAGNOSES: 1. Mitral regurgitation. 2. Coronary artery disease. 3. Atrial fibrillation. 4. Dyslipidemia. 5. Severely depressed left ventricular ejection fraction. POSTOPERATIVE DIAGNOSES: 1. Mitral regurgitation. 2. Coronary artery disease. 3. Atrial fibrillation. 4. Dyslipidemia. 5. Severely depressed left ventricular ejection fraction. PROCEDURES PERFORMED: 1. Mitral valve repair with a #32 Moya annuloplasty band. 2. Coronary artery bypass grafting x2 - left internal mammary artery to 2.0 mm mid LAD, reverse saphenous vein to 2.0 mm OM1. 3. Epicardial Maze with ligation of left atrial appendage. SAND MIXER MACHINE SURGEON: Dr. Robby Saravia. ANESTHESIA: General endotracheal - Dr. Igor Herrera. PUMP TIME: 130 minutes. CROSS-CLAMP TIME: 80 minutes. LOW CORE TEMPERATURE: 33 Celsius. LAB COORDINATOR: Toby Ruiz. DRAINS: 24-[place] chest tubes x2. DRIPS: None. TRANSFUSIONS: None. DESCRIPTION OF PROCEDURE: After consent was obtained, the patient was brought to the operating room, placed in supine position on the operating room table. Appropriate lines and monitors were placed, and general endotracheal anesthesia was induced. Chest and legs were prepped and draped in usual sterile fashion. Greater saphenous veins were harvested through 2 skip incisions from the left thigh. Wounds were irrigated and closed in layers. Median sternotomy was performed. The left internal mammary artery was harvested as a pedicle graft. The patient was systemically heparinized. Distal pedicle was divided and infused with papaverine. Thymic fat and pericardium were divided with electrocautery. Pericardial stay sutures were placed. Aortic and bicaval cannulation sutures were placed. After adequate heparinization, aortic and individual vena caval cannulas were placed. After retrograde prime was performed, the patient was then placed on cardiopulmonary bypass. The superior vena cava was circumferentially mobilized. A tape was placed around the superior vena cava. The inferior vena cava was mobilized and tape was placed around the inferior vena cava. The epicardial Maze device was passed around the right-sided pulmonary veins individually and fired twice. Aortic cross-clamp was applied, and antegrade sanguineous cardioplegic arrest was obtained. 1 L of antegrade cold [place] cardioplegia was given. Topical cold solution was used. The epicardial Maze was performed around the left-sided pulmonary veins twice. The epicardial Maze was then performed over the left atrial appendage x1. The left atrial appendage was then sewn off utilizing a dual-layered running mattress suture. At completion of the ligation, the left atrial appendage was flat. Reverse saphenous vein was anastomosed to the OM in an end-to-side fashion with a running 7-0 Prolene suture. Anastomosis was tested and it was hemostatic. The mammary artery was brought through a window in the pericardium and anastomosed to the mid LAD in an end-to-side fashion with running 7-0 Prolene suture. On release of mammary clamps, there was good hooding of anastomosis and good distal flow. Mammary was re-clamped. Pedicle was secured with interrupted 6-0 Prolene suture. 500 mL of antegrade cold [place] cardioplegia was given in the root. A left ventricular sump drain was placed through the right superior pulmonary vein. Carbon dioxide was infused within the pericardial well. [place] groove was developed and the left atrium entered. The atrial incision was extended superiorly to the dome and inferiorly toward the inferior vena cava. Mitral retractors were placed and the valve inspected. The anterior leaflet chords were all attached. The anterior leaflet was of appropriate height with no fissures. The posterior leaflet chords were all attached. There were no flail portions of the leaflet. The valve was of appropriate height. On filling the ventricle, the valve bulged nicely and had a nice shape. There was a small amount of leak at the coaptation point. I did not see any areas of the valve which were proud or flail. We elected to place an annuloplasty band and reef the posterior annulus in. 2-0 Ethibond sutures were placed in the annulus. These were then used to measure the sizing for the annuloplasty band. A 32 band was selected. The sutures were passed through the band and the band was seated. All the sutures were then tied. The deployment device was then removed. On filling the ventricle, the valve had no leak at all and bulged nicely. Atrium was then closed in a running dual-layered fashion with 4-0 Prolene suture. De-airing maneuvers were performed. The patient was placed in Trendelenburg position. The caval tapes were removed. After adequate de-airing, the cross-clamp was removed and partial occluding clamp placed. Saphenous vein was anastomosed to punch site on the aorta with running 6-0 Prolene suture. Partial occluding clamp was removed. Graft was deaired. Epicardial pacing wires were placed, both ventricular and atrial. The patient was then paced and allowed to fill. The valve was interrogated, had no leak by LILIAM. Ejection fraction was significantly improved post bypass run. It was in the 40% range. The patient was taken out of Trendelenburg position. The left ventricular sump drain was removed and its pursestring suture secured. The aortic root vent was removed and its pursestring suture secured. After good hemodynamics had been obtained, bypass was discontinued. Transfusion was given. Protamine was administered. Aortic decannulation was performed and purse-string suture secured. Inferior vena cava cannula was removed and its pursestring suture secured. The superior vena caval cannula was removed and its pursestring suture secured. After adequate hemostasis had been obtained, 24-[place] chest tubes x2 were placed in the mediastinum and secured to the skin with silk suture. The sternum was treated with vancomycin paste. Again, hemostasis was vigorously inspected for and ensured. The sternum was closed with #7 wire. Sternum was treated with platelet-rich plasma. Wires were twisted and buried. Wounds were irrigated and treated with platelet-poor plasma and closed in multiple layers. Needle, sponge, and instrument counts were all reported as correct at the end of the procedure. The patient tolerated the procedure well and was transferred to the intensive care unit in stable, but critical condition. Job ID: [id number]
--- NOTE | 2019-04-16 15:32 | RAD ---
PORTABLE CHEST: Date: 04/16/19 HISTORY: Postop open heart surgery. COMPARISON: 04/13/19 study. FINDINGS: Heart size is enlarged. There are now postop sternotomy changes seen. Midline and left-sided chest tu bes are present. Right subclavian line is seen with catheter tip over the superior vena cava. Atelect atic changes seen in the left lung base. IMPRESSION: Postop sternotomy changes. POS: C
--- NOTE | 2019-04-16 15:41 | PRG ---
DATE OF SERVICE: 04/16/2019 SERVICE: Pulmonary Medicine. INTERVAL HISTORY: The patient had his surgical procedure this morning. He did really well with it. The mitral valve has been adequately repaired. He cannot provide any additional elements of the history as he is still under the influence of a little bit of sedating medications. That being said, he indicates that he is currently chest pain free. PHYSICAL EXAMINATION: VITAL SIGNS: Afebrile, pulse 62, blood pressure 148/82, respirations 22, saturation 96% on 3 L nasal cannula. GENERAL: The patient is awake and alert, in no apparent distress. LUNGS: Decent air entry. Some rhonchi are present. No dependent crackles or wheezing appreciated. HEART: Normal rate. Regular. ABDOMEN: Soft, nontender, and nondistended. Bowel sounds are positive. MUSCULOSKELETAL: No cyanosis or clubbing. No pitting in the bilateral lower extremities. NEUROLOGIC: Grossly nonfocal. LABORATORY DATA: WBC 14.1, hemoglobin 11.2, platelets 124,000 and roughly stable. INR 1.5. A pH of 7.39, pCO2 of 41, pO2 of 184 on 50% FiO2 at that time. Creatinine 1.11 and improved. Basic metabolic profile is otherwise unremarkable. Calcium 7.5. IMAGING DATA: Chest x-ray demonstrates new sternotomy wires. Thoracostomy drains and mediastinal drains are noted. No obvious consolidating lesions or effusions are identified. There is a right subclavian central venous catheter, which terminates in very good position. ASSESSMENT: 1. Acute hypoxic respiratory failure. 2. Chronic obstructive pulmonary disease, status post mild exacerbation. 3. Atrial fibrillation with rapid ventricular response. 4. [id number] systolic and valvular heart failure. 5. Mitral regurgitation, severe. 6. Coronary artery disease. 7. Postoperative day 0 following mitral valve repair and coronary artery bypass graft x2 vessels. DISCUSSION AND PLAN: The patient is doing fine from a respiratory standpoint. We will focus on mobilization efforts. Pulmonary/Critical Care will continue to follow very closely while the patient remains inhouse. Job ID: [id number]
[2019-04-16] MEDS ORDERED: Lidocaine 2% PF 100 mg/5 ml Syringe ONE (15:45)
[2019-04-16] MEDS ORDERED: Potassium Chloride 60 MEQ/30 ML VIAL ONE (15:45)
[2019-04-16] MEDS ORDERED: Heparin 5,000 UNITS/ML VIAL ONE (15:45)
[2019-04-16] MEDS ORDERED: Protamine Sulfate 250 MG/25 ML VIAL ONE (15:45)
[2019-04-16] MEDS ORDERED: Thrombin 5000 UNITS/5 ML VIAL ONE (15:45)
[2019-04-16] MEDS ORDERED: Ketorolac Tromethamine 30 MG/ML VIAL ONE (15:45)
[2019-04-16] MEDS ORDERED: Heparin 30,000 units/30 ml VIAL ONE (15:45)
[2019-04-16] MEDS ORDERED: Norepinephrine 4 MG/4 ML VIAL ONE (15:45)
[2019-04-16] MEDS ORDERED: ePHEDrine 50 MG/ML VIAL ONE (15:45)
[2019-04-16] MEDS ORDERED: Nitroglycerin 50 MG/250 ML BOT ONE (15:45)
[2019-04-16] MEDS ORDERED: Papaverine 60 MG/2 ML VIAL ONE (15:45)
[2019-04-16] MEDS ORDERED: Calcium Chloride 1 GM/10 ML Abboject SYRINGE ONE (15:45)
[2019-04-16] MEDS ORDERED: Aminocaproic Acid 5 GM/20 ML VIAL ONE (15:45)
[2019-04-16] MEDS ORDERED: Sodium Bicarb 50 MEQ/50 ML VIAL ONE (15:45)
[2019-04-16] MEDS ORDERED: Glycopyrrolate 0.2 MG/ML 5 ML SYRINGE ONE (15:45)
[2019-04-16] MEDS ORDERED: Dexamethasone 20 MG/5 ML VIAL ONE (15:45)
[2019-04-16] MEDS ORDERED: PHENYLEPHRINE-NS 100 MCG/ML 10 ML SYRINGE ONE (15:45)
[2019-04-16] MEDS ORDERED: DOPamine 400 MG/10 ML VIAL ONE (15:45)
--- NOTE | 2019-04-16 17:10 | PRG ---
DATE OF SERVICE: 04/16/2019 SUBJECTIVE: The patient is seen and examined at bedside. He was just brought from the recovery room post surgery. He had CABG done this morning by Dr. Braswell. He is still under influence of anesthetics. OBJECTIVE: VITAL SIGNS: His blood pressure is 116/60, pulse is 99, respirations 23, pulse oximetry is 99%. GENERAL: He is still quite drowsy. HEENT: His sclerae are nonicteric. LUNGS: Breath sounds diminished at both bases. HEART: S1 and S2, somewhat distant. No S3. No S4. Chest tubes in place. ABDOMEN: Soft, nondistended. EXTREMITIES: No clubbing, cyanosis, or edema. NEUROLOGICAL: Postponed since the patient is under influence of anesthetics. LABORATORY DATA: Labs showed a white count of 14.1, hemoglobin 11.2, hematocrit 32.4, and platelet count is 124,000. INR 1.5, PT of 18.1, APTT 29.0. Sodium of 138, potassium 4.0, chloride 108, CO2 of 23, BUN 28, creatinine 1.11, glycemia is ranging from 111 to 124, calcium 7.5. IMPRESSION: 1. Acute hypoxic respiratory failure. 2. Chronic obstructive pulmonary disease, status post exacerbation. 3. Coronary artery disease. 4. Status post coronary artery bypass graft x2 vessels and mitral valve repair. 5. Acute on chronic systolic and valvular heart failure. 6. Atrial fibrillation with rapid ventricular response. PLAN: The patient will stay in the intensive care unit for the next most likely for 72 hours depends on his recovery and progress. We will continue his supportive care, p.r.n. pain medications, and Job ID: [id number]
[2019-04-16] MEDS: Vancomycin HCl 1 GM in Premix Bag 1 BAG IVPB SCH (17:43)
[2019-04-16] MEDS: Ketorolac Tromethamine 30 MG/ML VIAL IVP SCH (17:43)
[2019-04-16 19:40] LABS: Hemoglobin 11.5 g/dL (14.0-18.0)
[2019-04-16 19:57] LABS: Potassium 4.4 mmol/L (3.5-5.1)
[2019-04-16] MEDS: Famotidine/PF 20 mg/2ml Vial SLOW IVP SCH (22:14)
[2019-04-16] MEDS: Atorvastatin Calcium 20 MG TAB PO SCH (22:14)
[2019-04-17] MEDS: Ketorolac Tromethamine 30 MG/ML VIAL IVP SCH ×4 (00:13→17:19)
[2019-04-17] MEDS: CEFAZOLIN 2 GM, Admixture Fee 1 EACH in Sodium Chloride 0.9% 100 ML IVPB SCH ×3 (00:44→16:19)
[2019-04-17] MEDS: Morphine 2 MG/ML SYRINGE SLOW IVP PRN ×2 (01:31→05:59)
[2019-04-17 04:58] LABS: #Lymphocytes 0.5 thou/uL (1.20-3.40); #Monocytes 1.2 thou/uL (0.11-0.59); #Neutrophils 15.6 thou/uL (1.40-6.50); %Lymphocytes 2.8 % (21.0-51.0); %Monocytes 7.1 % (0.0-10.0); %Neutrophils 90.1 % (42.0-75.0); Hemoglobin 10.8 g/dL (14.0-18.0); Mean Corpuscular HGB CONC 34.5 g/dL (32.0-36.0); Mean Corpuscular Hemoglobin 34.2 pg (27.0-31.0); Mean Corpuscular Volume 99.3 fL (78.0-98.0); Mean Platelet Volume 7.9 fL (7.4-10.4); Platelet Count 143 thou/uL (130-400); RBC Distribution Width 12.8 % (11.5-14.5); Red Blood Cell (RBC) Count 3.14 mill/uL (4.70-6.10); White Blood Cell (WBC) Count 17.4 thou/uL (4.8-10.8)
[2019-04-17 05:22] LABS: Anion Gap 11 mmol/L (10-20); BUN (Urea Nitrogen) 34 mg/dL (8.4-25.7); Calc. Creatinine Clearance 41 mL/min (70-130); Calcium 8.5 mg/dL (7.8-10.44); Carbon Dioxide 23 mmol/L (23-31); Chloride 107 mmol/L (98-107); Estimated GFR-MDRD 48; Glucose 146 mg/dL (83-110); Potassium 4.3 mmol/L (3.5-5.1); Sodium 137 mmol/L (136-145)
[2019-04-17] MEDS: traMADol HCl 50 MG TAB PO PRN (05:43)
[2019-04-17] MEDS: Vancomycin HCl 1 GM in Premix Bag 1 BAG IVPB SCH (05:44)
[2019-04-17] MEDS: Magnesium 2 GM/50 ML 1 GM in Premix Bag 1 BAG IVPB SCH (07:27)
[2019-04-17] MEDS: Cyanocobalamin (Vitamin B-12) 1,000 MCG TAB PO SCH (08:00)
[2019-04-17] MEDS: Thiamine 100 MG TAB PO SCH (08:00)
[2019-04-17] MEDS: Aspirin 325 MG TAB PO SCH (08:00)
[2019-04-17] MEDS: Digoxin 0.125 MG TAB PO SCH (08:00)
--- NOTE | 2019-04-17 08:25 | RAD ---
CHEST 1 VIEW: Date: 04/17/19 INDICATION: Status post open heart surgery. COMPARISON: Prior exam dated 04/16/19. FINDINGS: Left-sided thoracostomy tube and right subclavian central venous catheter are stable. Cardiomegaly pe rsists. Areas of patchy retrocardiac and left lower lobe air space opacity is similar appearing. Righ t lung is clear. No pneumothorax is evident. IMPRESSION: 1. Stable exam. 2. Persistent left lower lobe basilar opacity possibly reflective of atelectasis, aspiration, or pne umonia. Recommend continued follow-up. 3. Stable cardiomegaly. 4. Stable tubes and lines. POS: BH
--- NOTE | 2019-04-17 08:40 | PRG ---
DATE OF SERVICE: 04/17/2019 SUBJECTIVE: Abelino Zaidi is status post CABG and MVR. He is doing well. X-ray is clear. OBJECTIVE: VITAL SIGNS: Temperature 99, pulse is 74, saturations 96% on 2 L, and blood pressure 130/90. GENERAL: Denies difficulty breathing, coughing, or wheezing. CHEST: No wheezing or crackles. CARDIAC: Normal S2 and no gallops, no murmurs. LABORATORY DATA: Creatinine 1.4 baseline. H and H are stable 10 and 30 and platelet count is 143. ASSESSMENT AND PLAN: Congestive heart failure, chronic obstructive pulmonary disease, respiratory failure, and status post mitral valve surgery and coronary artery bypass grafting. Continue PT and supportive care. Eventually transferred out of the ICU. Job ID: [id number]
--- NOTE | 2019-04-17 16:20 | PDOC.HOSPP ---
- Subjective Subjective: 74 y/o male with COPD admitted with worsening SOB associated with orthopnea and PND. Found to have acute severe cardiomyopathy, severe mitral regurg and severe left main disease. S/p Bypass anad mitral valve repair.complain of being tired. No fever. - Objective Vital Signs & Weight: Vital Signs (12 hours) Temp Pulse Resp Pulse Ox 04/17/19 16:00 98.7 F 04/17/19 13:03 72 18 04/17/19 11:00 98.9 F 04/17/19 08:00 74 100 04/17/19 07:00 99.3 F 04/17/19 06:52 96 04/17/19 06:50 74 25 H 99 Weight Admit Weight 146 lb Weight 146 lb 6.191 oz Most Recent Monitor Data Heart Rate from ECG 69 NIBP 134/84 NIBP BP-Mean 100 Respiration from ECG 16 SpO2 100 I&O: 04/16/19 04/17/19 04/18/19 06:59 06:59 06:59 Intake Total 720 2464 970 Output Total 850 1945 490 Balance -130 519 480 Result Diagrams: 04/17/19 04:43 04/17/19 04:43 Additional Labs: Accuchecks 04/17/19 04/16/19 00:36 20:48 POC Glucose 121 H 141 H ROS - Review of Systems All systems: All other ROS were reviewed and found negative. - Medication Medications: Active Medications Generic Name Dose Route Start Last Admin Trade Name Freq PRN Reason Stop Dose Admin Acetaminophen 650 mg 04/16/19 13:30 04/17/19 09:46 Tylenol PO 650 mg Q6H PRN Administration Headache/Fever Or Mild Pain Albuterol/Ipratropium 3 ml 04/16/19 13:00 04/17/19 13:03 Duoneb NEB 3 ml [id number] JUNAID Administration Aspirin 325 mg 04/17/19 09:00 04/17/19 08:00 Aspirin PO 325 mg DAILY JUNAID Administration Atorvastatin Calcium 20 mg 04/16/19 21:00 04/16/19 22:14 Lipitor PO 20 mg HS JUNAID Administration Cyanocobalamin 1,000 mcg 04/17/19 09:00 04/17/19 08:00 Vitamin B-12 PO 1,000 mcg DAILY JUNAID Administration Digoxin 0.125 mg 04/17/19 09:00 04/17/19 08:00 Lanoxin PO 0.125 mg DAILY JUNAID Administration Famotidine 20 mg 04/16/19 21:00 04/16/19 22:14 Pepcid SLOW IVP 20 mg 2100 JUNAID Administration Magnesium Sulfate 1 gm/ Device 25 mls @ 50 mls/hr 04/17/19 09:00 04/17/19 07: 27 IVPB 04/18/19 09:59 25 mls QAM JUNAID Administration Nitroglycerin/Dextrose 250 mls @ 0 mls/hr 04/16/19 13:30 04/16/19 13:53 Nitroglycerin 50 Mg/250 Ml Bot IVPB 250 mls PRN PRN Administration To Maintain SBP< 140mmHG Protocol Titrate Cefazolin Sodium 2 gm/ 100 mls @ 200 mls/hr 04/16/19 16:00 04/17/19 07:26 Miscellaneous Medication 1 IVPB 100 mls each/ Sodium Chloride 0000,0800,1600 JUNAID Administration Ketorolac Tromethamine 15 mg 04/16/19 18:00 04/17/19 13:10 Toradol IVP 04/19/19 18:01 15 mg Q6HR JUNAID Administration Morphine Sulfate 2 mg 04/16/19 13:41 04/17/19 05:59 Morphine SLOW IVP 2 mg Q15M PRN Administration Severe Pain (7-10) Ondansetron HCl 4 mg 04/16/19 13:30 04/17/19 15:25 Zofran IVP 4 mg Q6H PRN Administration Nausea/Vomiting Potassium Chloride 20 meq 04/16/19 13:30 04/16/19 15:55 Kcl IVPB 20 meq PRN PRN Administration K level </= 4.0 Thiamine HCl 100 mg 04/17/19 09:00 04/17/19 08:00 Thiamine PO 100 mg DAILY JUNAID Administration Tramadol HCl 50 mg 04/16/19 13:30 04/17/19 05:43 Ultram PO 50 mg Q6H PRN Administration Pain - Exam awake alert, ill appearing Eye: PERRL ENT: normocephalic atraumatic Neck: supple, no JVD Heart: irregular Respiratory: no rales, no ronchi (Fair air entry bilaterally. Chest tube noted.) Gastrointestinal: soft, non-tender, non-distended, normal bowel sounds Extremities: no cyanosis, no clubbing Neurological: CN's grossly intact, normal sensation to touch, no focal deficits Psychiatric: normal affect, A&O x 3 Hosp A/P (1) Bilateral pleural effusion Code(s): J90 - PLEURAL EFFUSION, NOT ELSEWHERE CLASSIFIED Status: Acute (2) Acute renal failure Status: Acute Qualifiers: Acute renal failure type: unspecified Qualified Code(s): N17.9 - Acute kidney failure, unspecified (3) Acute respiratory failure with hypoxia Code(s): J96.01 - ACUTE RESPIRATORY FAILURE WITH HYPOXIA Status: Acute (4) CHF (congestive heart failure), NYHA class III Code(s): I50.9 - HEART FAILURE, UNSPECIFIED Status: Acute Qualifiers: Congestive heart failure type: systolic Congestive heart failure chronicity : acute Qualified Code(s): I50.21 - Acute systolic (congestive) heart failure (5) COPD exacerbation Code(s): J44.1 - CHRONIC OBSTRUCTIVE PULMONARY DISEASE W (ACUTE) EXACERBATION Status: Acute (6) Cardiomyopathy Code(s): I42.9 - CARDIOMYOPATHY, UNSPECIFIED Status: Acute Qualifiers: Cardiomyopathy type: unspecified Qualified Code(s): I42.9 - Cardiomyopathy , unspecified (7) Mitral insufficiency Status: Acute (8) Tobacco abuse Code(s): Z72.0 - TOBACCO USE Status: Chronic (9) Atrial fibrillation with RVR Code(s): I48.91 - UNSPECIFIED ATRIAL FIBRILLATION Status: Resolved - Plan Continue current medications. Continue supportive care. Start ensure enlive. Monitor CBC and BMP in the am. cardiology and CTS following.
[2019-04-17] MEDS ORDERED: Furosemide 40 MG/4 ML VIAL SLOW IVP SCH (17:30)
[2019-04-17] MEDS: Famotidine/PF 20 mg/2ml Vial SLOW IVP SCH (21:59)
[2019-04-17] MEDS: Atorvastatin Calcium 20 MG TAB PO SCH (21:59)
[2019-04-18] MEDS: Ketorolac Tromethamine 30 MG/ML VIAL IVP SCH ×2 (02:04→05:47)
[2019-04-18] MEDS: CEFAZOLIN 2 GM, Admixture Fee 1 EACH in Sodium Chloride 0.9% 100 ML IVPB SCH ×3 (02:04→15:31)
[2019-04-18 04:31] LABS: #Lymphocytes 0.8 thou/uL (1.20-3.40); #Monocytes 0.9 thou/uL (0.11-0.59); #Neutrophils 10.8 thou/uL (1.40-6.50); %Basophils 0.1 % (0.0-1.0); %Eosinophils 0.1 % (0.0-10.0); %Lymphocytes 6.2 % (21.0-51.0); %Neutrophils 86.6 % (42.0-75.0); Hemoglobin 10.3 g/dL (14.0-18.0); Mean Corpuscular Hemoglobin 34.1 pg (27.0-31.0); Mean Platelet Volume 8.3 fL (7.4-10.4); Platelet Count 114 thou/uL (130-400); RBC Distribution Width 12.8 % (11.5-14.5); Red Blood Cell (RBC) Count 3.01 mill/uL (4.70-6.10); White Blood Cell (WBC) Count 12.5 thou/uL (4.8-10.8)
[2019-04-18 04:55] LABS: Calcium 8.9 mg/dL (7.8-10.44); Chloride 104 mmol/L (98-107); Potassium 4.2 mmol/L (3.5-5.1); Sodium 136 mmol/L (136-145)
[2019-04-18 04:56] LABS: Glucose 112 mg/dL (83-110)
[2019-04-18 04:57] LABS: Anion Gap 11 mmol/L (10-20); Carbon Dioxide 25 mmol/L (23-31)
[2019-04-18 04:59] LABS: Calc. Creatinine Clearance 33 mL/min (70-130); Estimated GFR-MDRD 35
[2019-04-18 05:00] LABS: BUN (Urea Nitrogen) 45 mg/dL (8.4-25.7)
[2019-04-18] MEDS: traMADol HCl 50 MG TAB PO PRN ×2 (07:45→18:15)
--- NOTE | 2019-04-18 08:08 | PRG ---
DATE OF SERVICE: 04/18/2019 SUBJECTIVE: This morning, he is awake, alert, responsive, and back pain, but no shortness of breath. OBJECTIVE: VITAL SIGNS: Saturations are 90% on room air, pulse 72, respiratory rate 21, blood pressure 140/92. CHEST: No wheezing or crackles. CARDIAC: Normal S1 and S2. No gallops. ABDOMEN: No masses. LABORATORY DATA: Creatinine 1.8. IMAGING STUDIES: Chest x-ray is clear. IMPRESSION: 1. Status post coronary artery bypass graft. 2. Chronic obstructive pulmonary disease. 3. Pain. 4. Chronic renal failure. 5. Tobacco abuse. 6. Atrial fibrillation. PLAN: The patient is stable. Disposition as per Cardiology. Transferred out of the ICU. Continue neb treatment and PT. We will follow. Job ID: [id number]
[2019-04-18] MEDS: Magnesium 2 GM/50 ML 1 GM in Premix Bag 1 BAG IVPB SCH (08:32)
[2019-04-18] MEDS: Digoxin 0.125 MG TAB PO SCH (08:32)
[2019-04-18] MEDS: Cyanocobalamin (Vitamin B-12) 1,000 MCG TAB PO SCH (08:33)
[2019-04-18] MEDS: Aspirin 325 MG TAB PO SCH (08:33)
[2019-04-18] MEDS: Thiamine 100 MG TAB PO SCH (08:33)
[2019-04-18] MEDS: hydrALAZINE 20 MG/ML VIAL SLOW IVP PRN (08:39)
[2019-04-18] MEDS ORDERED: Lisinopril 10 MG TAB PO SCH (09:00)
[2019-04-18 09:21] LABS: Bilirubin Negative (Negative); Blood, Urine 2+ (Negative); Clarity Turbid (Clear); Glucose, Urine (Dipstick) Normal (Negative); Leukocyte 75 Leu/uL (Negative); Nitrite Negative (Negative); Protein, Urine (Dipstick) 50 mg/dL (Neg-Trace); RBC/HPF 21-50 HPF (0-3); Squamous Epithelial 0-3 HPF (0-3); Urobilinogen Normal mg/dL (Less than 2)
[2019-04-18 09:36] LABS: Bacteria/HPF 2+ HPF (None Seen)
[2019-04-18 10:01] LABS: Creatinine, Urine 163.88 mg/dL (63-166)
--- NOTE | 2019-04-18 10:36 | RAD ---
CHEST 1 VIEW: Date: 04/18/19 INDICATION: Status post open heart surgery. COMPARISON: Prior exam dated 04/17/19. FINDINGS: Cardiomegaly, right subclavian central venous catheter, and midline sternotomy changes, mediastinal d rain, and left-sided thoracostomy tube are similar appearing. Small left pleural effusion persists. N o pneumothorax is evident. Left basilar opacity persists. IMPRESSION: Stable exam. POS: BH
--- NOTE | 2019-04-18 12:55 | PDOC.HOSPP ---
- Subjective Subjective: 74 y/o male with COPD admitted with worsening SOB associated with orthopnea and PND. Found to have acute severe cardiomyopathy, severe mitral regurg and severe left main disease. S/p Bypass anad mitral valve repair. Feeling better today. No fever. Chest discomfort is better - Objective Vital Signs & Weight: Vital Signs (12 hours) Temp Pulse Resp BP Pulse Ox 04/18/19 12:00 98.3 F 04/18/19 09:49 161/85 H 04/18/19 08:39 72 180/106 H 04/18/19 08:32 72 04/18/19 07:21 99 04/18/19 07:19 72 21 H 99 04/18/19 07:08 97 04/18/19 07:00 98.9 F Weight Admit Weight 146 lb Weight 145 lb 8.081 oz Most Recent Monitor Data Heart Rate from ECG 74 NIBP 146/81 NIBP BP-Mean 102 Respiration from ECG 27 SpO2 100 I&O: 04/17/19 04/18/19 04/19/19 06:59 06:59 06:59 Intake Total 2464 1310 300 Output Total 1945 1310 210 Balance 519 0 90 Result Diagrams: 04/18/19 03:47 04/18/19 03:30 ROS - Review of Systems All systems: All other ROS were reviewed and found negative. - Medication Medications: Active Medications Generic Name Dose Route Start Last Admin Trade Name Freq PRN Reason Stop Dose Admin Acetaminophen 650 mg 04/16/19 13:30 04/17/19 09:46 Tylenol PO 650 mg Q6H PRN Administration Headache/Fever Or Mild Pain Albuterol/Ipratropium 3 ml 04/16/19 13:00 04/18/19 07:19 Duoneb NEB 3 ml [id number] JUNAID Administration Aspirin 325 mg 04/17/19 09:00 04/18/19 08:33 Aspirin PO 325 mg DAILY JUNAID Administration Atorvastatin Calcium 20 mg 04/16/19 21:00 04/17/19 21:59 Lipitor PO 20 mg HS JUNAID Administration Cyanocobalamin 1,000 mcg 04/17/19 09:00 04/18/19 08:33 Vitamin B-12 PO 1,000 mcg DAILY JUNAID Administration Digoxin 0.125 mg 04/17/19 09:00 04/18/19 08:32 Lanoxin PO 0.125 mg DAILY JUNAID Administration Fentanyl 50 mcg 04/16/19 13:30 04/18/19 08:05 Sublimaze SLOW IVP 04/18/19 13:00 50 mcg Q2H PRN Administration Severe Pain (7-10) Hydralazine HCl 10 mg 04/16/19 13:30 04/18/19 08:39 Apresoline SLOW IVP 10 mg Q6H PRN Administration To Maintain SBP< 140mmHG Cefazolin Sodium 2 gm/ 100 mls @ 200 mls/hr 04/16/19 16:00 04/18/19 07:39 Miscellaneous Medication 1 IVPB 100 mls each/ Sodium Chloride 0000,0800,1600 JUNAID Administration Lisinopril 10 mg 04/18/19 09:00 04/18/19 09:49 Zestril PO 10 mg DAILY JUNAID Administration Morphine Sulfate 2 mg 04/16/19 13:41 04/17/19 05:59 Morphine SLOW IVP 2 mg Q15M PRN Administration Severe Pain (7-10) Ondansetron HCl 4 mg 04/16/19 13:30 04/17/19 15:25 Zofran IVP 4 mg Q6H PRN Administration Nausea/Vomiting Pantoprazole Sodium 40 mg 04/18/19 09:00 04/18/19 09:49 Protonix PO 40 mg DAILY JUNAID Administration Potassium Chloride 20 meq 04/16/19 13:30 04/16/19 15:55 Kcl IVPB 20 meq PRN PRN Administration K level </= 4.0 Thiamine HCl 100 mg 04/17/19 09:00 04/18/19 08:33 Thiamine PO 100 mg DAILY JUNAID Administration Tramadol HCl 50 mg 04/16/19 13:30 04/18/19 07:45 Ultram PO 50 mg Q6H PRN Administration Pain - Exam awake alert Eye: PERRL ENT: normocephalic atraumatic Neck: supple, symmetric Heart: irregular Respiratory: no wheezes (fair air entry bilaterally), no ronchi Gastrointestinal: soft, non-tender, non-distended, normal bowel sounds Extremities: no edema Neurological: CN's grossly intact, no focal deficits Psychiatric: normal affect, A&O x 3 Hosp A/P (1) Acute renal failure Status: Acute Qualifiers: Acute renal failure type: unspecified Qualified Code(s): N17.9 - Acute kidney failure, unspecified (2) Cardiomyopathy Code(s): I42.9 - CARDIOMYOPATHY, UNSPECIFIED Status: Acute Qualifiers: Cardiomyopathy type: unspecified Qualified Code(s): I42.9 - Cardiomyopathy , unspecified (3) Bilateral pleural effusion Code(s): J90 - PLEURAL EFFUSION, NOT ELSEWHERE CLASSIFIED Status: Acute (4) Acute respiratory failure with hypoxia Code(s): J96.01 - ACUTE RESPIRATORY FAILURE WITH HYPOXIA Status: Acute (5) CHF (congestive heart failure), NYHA class III Code(s): I50.9 - HEART FAILURE, UNSPECIFIED Status: Acute Qualifiers: Congestive heart failure type: systolic Congestive heart failure chronicity : acute Qualified Code(s): I50.21 - Acute systolic (congestive) heart failure (6) COPD exacerbation Code(s): J44.1 - CHRONIC OBSTRUCTIVE PULMONARY DISEASE W (ACUTE) EXACERBATION Status: Acute (7) Mitral insufficiency Status: Acute (8) Tobacco abuse Code(s): Z72.0 - TOBACCO USE Status: Chronic (9) Atrial fibrillation with RVR Code(s): I48.91 - UNSPECIFIED ATRIAL FIBRILLATION Status: Resolved (10) CAD (coronary artery disease) Code(s): I25.10 - ATHSCL HEART DISEASE OF [place] CORONARY ARTERY W/O ANG PCTRS Status: Acute - Plan Vian oral intake advised DC ketorolac. Avoid nephrotoxic agents Get Urine electrolytes and urinalysis Continue current medications. Continue oral supplements.
[2019-04-18] MEDS: Atorvastatin Calcium 20 MG TAB PO SCH (20:34)
[2019-04-19] MEDS: traMADol HCl 50 MG TAB PO PRN ×2 (00:18→06:16)
[2019-04-19] MEDS: hydrALAZINE 20 MG/ML VIAL SLOW IVP PRN (00:19)
[2019-04-19 04:30] LABS: #Eosinphils 0.1 thou/uL (0.0-0.7); #Lymphocytes 0.7 thou/uL (1.20-3.40); #Monocytes 0.9 thou/uL (0.11-0.59); #Neutrophils 8.2 thou/uL (1.40-6.50); %Basophils 0.1 % (0.0-1.0); %Eosinophils 0.6 % (0.0-10.0); %Lymphocytes 7.5 % (21.0-51.0); %Neutrophils 82.7 % (42.0-75.0); Hemoglobin 9.7 g/dL (14.0-18.0); Mean Corpuscular HGB CONC 34.4 g/dL (32.0-36.0); Mean Corpuscular Hemoglobin 34.2 pg (27.0-31.0); Mean Corpuscular Volume 99.6 fL (78.0-98.0); Mean Platelet Volume 8.3 fL (7.4-10.4); Platelet Count 123 thou/uL (130-400); RBC Distribution Width 12.6 % (11.5-14.5); Red Blood Cell (RBC) Count 2.82 mill/uL (4.70-6.10); White Blood Cell (WBC) Count 9.9 thou/uL (4.8-10.8)
[2019-04-19 04:48] LABS: Anion Gap 11 mmol/L (10-20); BUN (Urea Nitrogen) 35 mg/dL (8.4-25.7); Calc. Creatinine Clearance 57 mL/min (70-130); Calcium 8.6 mg/dL (7.8-10.44); Carbon Dioxide 25 mmol/L (23-31); Chloride 104 mmol/L (98-107); Estimated GFR-MDRD 66; Glucose 92 mg/dL (83-110); Sodium 136 mmol/L (136-145)
[2019-04-19] MEDS ORDERED: Mag-Al 1200 mg/1200 mg/30 ML UDCUP PO PRN (07:38)
[2019-04-19] MEDS ORDERED: Nitroglycerin 0.4 MG TAB (25 Tab Bottle) SL PRN (07:38)
[2019-04-19] MEDS ORDERED: Mineral Oil ENEMA PR PRN (07:38)
[2019-04-19] MEDS ORDERED: Zolpidem Tartrate 5 MG TAB PO PRN (07:38)
[2019-04-19] MEDS ORDERED: Bisacodyl 5 MG TAB PO PRN (07:38)
[2019-04-19] MEDS ORDERED: Fentanyl 100 MCG/2 ML VIAL SLOW IVP PRN ×2 (07:38)
[2019-04-19] MEDS ORDERED: Guaifenesin DM 100-10/5 ML UDCUP PO PRN (07:38)
[2019-04-19] MEDS ORDERED: Bisacodyl 10 MG SUPP PR PRN (07:38)
[2019-04-19] MEDS ORDERED: Artificial Tears 18 DROP/0.9 ML EA EYE PRN (07:38)
[2019-04-19] MEDS ORDERED: Furosemide 40 MG TAB PO SCH (07:38)
[2019-04-19] MEDS ORDERED: diphenhydrAMINE 25 MG CAP PO PRN (07:38)
[2019-04-19] MEDS: Aspirin 325 MG TAB PO SCH (08:14)
[2019-04-19] MEDS: Thiamine 100 MG TAB PO SCH (08:14)
[2019-04-19] MEDS: Digoxin 0.125 MG TAB PO SCH (08:14)
[2019-04-19] MEDS: Aspirin 325 mg Enteric Coated Tablet PO SCH (08:14)
[2019-04-19] MEDS: Cyanocobalamin (Vitamin B-12) 1,000 MCG TAB PO SCH (08:14)
--- NOTE | 2019-04-19 09:01 | EKG ---
Test Reason : POST CABG Blood Pressure : / mmHG Vent. Rate : 080 BPM Atrial Rate : 080 BPM P-R Int : 168 ms QRS Dur : 184 ms QT Int : 494 ms P-R-T Axes : 000 114 -05 degrees QTc Int : 569 ms Poor data quality, interpretation may be adversely affected AV sequential or dual chamber electronic pacemaker When compared with ECG of 09-APR-2019 10:49, (Unconfirmed) Electronic ventricular pacemaker has replaced Atrial fibrillation Vent. rate has decreased BY [address] Crissy HANSON ([id number]) on 04/19/2019 9:01:00 AM Referred By: Gurvinder BARRETT Confirmed By:DR. Crissy HANSON
[2019-04-19] MEDS: Carvedilol 3.125 MG TAB PO SCH (17:58)
--- NOTE | 2019-04-19 18:16 | PDOC.HOSPP ---
- Subjective Subjective: Patient seen and examined for multiple medical issues. No CP. No new complaints. No overnight events - Objective Vital Signs & Weight: Vital Signs (12 hours) Temp Pulse Pulse Pulse Resp BP BP 04/19/19 15:00 98.6 F 04/19/19 14:02 69 72 133/70 118/65 04/19/19 12:53 68 18 04/19/19 12:00 97.8 F 04/19/19 11:00 97.9 F 04/19/19 09:42 70 70 119/65 118/65 04/19/19 08:14 68 04/19/19 08:00 98.2 F 71 04/19/19 07:31 04/19/19 06:33 04/19/19 06:31 71 18 Pulse Ox Pulse Ox Pulse Ox 04/19/19 15:00 04/19/19 14:02 99 100 04/19/19 12:53 99 04/19/19 12:00 04/19/19 11:00 04/19/19 09:42 100 04/19/19 08:14 04/19/19 08:00 04/19/19 07:31 96 04/19/19 06:33 99 04/19/19 06:31 99 Weight Admit Weight 146 lb Weight 154 lb 1.65 oz Most Recent Monitor Data Heart Rate from ECG 65 NIBP 125/67 NIBP BP-Mean 86 Respiration from ECG 17 SpO2 97 I&O: 04/18/19 04/19/19 04/20/19 06:59 06:59 06:59 Intake Total 1310 1080 1220 Output Total 1310 1185 410 Balance 0 -105 810 Result Diagrams: 04/19/19 03:05 04/19/19 03:05 EKG Reviewed by me: Yes (Tele SR) ROS - Review of Systems All systems: All other ROS were reviewed and found negative. Respiratory: denies: cough, dry, shortness of breath, hemoptysis, SOB with excertion, pleuritic pain, sputum, wheezing, other Cardiovascular: denies: chest pain, palpitations, orthopnea, paroxysmal noc. dyspnea, edema, light headedness, other - Medication Medications: Active Medications Generic Name Dose Route Start Last Admin Trade Name Freq PRN Reason Stop Dose Admin Acetaminophen 650 mg 04/16/19 13:30 04/17/19 09:46 Tylenol PO 650 mg Q6H PRN Administration Headache/Fever Or Mild Pain Albuterol/Ipratropium 3 ml 04/16/19 13:00 04/19/19 12:53 Duoneb NEB 3 ml [id number] JUNAID Administration Aspirin 325 mg 04/19/19 09:00 04/19/19 08:14 Ecotrin PO Not Given DAILY JUNAID Atorvastatin Calcium 20 mg 04/16/19 21:00 04/18/19 20:34 Lipitor PO 20 mg HS JUNAID Administration Carvedilol 1.5625 mg 04/19/19 17:00 04/19/19 17:58 Coreg PO 1.5625 mg BID-WM JUNAID Administration Cyanocobalamin 1,000 mcg 04/17/19 09:00 04/19/19 08:14 Vitamin B-12 PO 1,000 mcg DAILY JUNAID Administration Digoxin 0.125 mg 04/17/19 09:00 04/19/19 08:14 Lanoxin PO 0.125 mg DAILY JUNAID Administration Guaifenesin/Dextromethorphan 15 ml 04/19/19 07:38 04/19/19 10:05 Robitussin Dm PO 15 ml Q4H PRN Administration Cough Hydralazine HCl 10 mg 04/16/19 13:30 04/19/19 00:19 Apresoline SLOW IVP 10 mg Q6H PRN Administration To Maintain SBP< 140mmHG Ondansetron HCl 4 mg 04/16/19 13:30 04/17/19 15:25 Zofran IVP 4 mg Q6H PRN Administration Nausea/Vomiting Pantoprazole Sodium 40 mg 04/18/19 09:00 04/19/19 08:14 Protonix PO 40 mg DAILY JUNAID Administration Potassium Chloride 20 meq 04/16/19 13:30 04/16/19 15:55 Kcl IVPB 20 meq PRN PRN Administration K level </= 4.0 Thiamine HCl 100 mg 04/17/19 09:00 04/19/19 08:14 Thiamine PO 100 mg DAILY JUNAID Administration Tramadol HCl 50 mg 04/16/19 13:30 04/19/19 06:16 Ultram PO 50 mg Q6H PRN Administration Pain - Exam NAD Heart: RRR, no rubs Respiratory: CTAB, no rales Gastrointestinal: soft, non-tender, normal bowel sounds Extremities: no edema Neurological: no new deficit Hosp A/P (1) Acute respiratory failure with hypoxia Code(s): J96.01 - ACUTE RESPIRATORY FAILURE WITH HYPOXIA (2) CAD (coronary artery disease) Code(s): I25.10 - ATHSCL HEART DISEASE OF [place] CORONARY ARTERY W/O ANG PCTRS (3) COPD exacerbation Code(s): J44.1 - CHRONIC OBSTRUCTIVE PULMONARY DISEASE W (ACUTE) EXACERBATION (4) Atrial fibrillation with RVR Code(s): I48.91 - UNSPECIFIED ATRIAL FIBRILLATION (5) Acute systolic heart failure Code(s): I50.21 - ACUTE SYSTOLIC (CONGESTIVE) HEART FAILURE (6) Chronic alcoholism Code(s): F10.20 - ALCOHOL DEPENDENCE, UNCOMPLICATED (7) Mitral insufficiency (8) S/P CABG (coronary artery bypass graft) Code(s): Z95.1 - PRESENCE OF AORTOCORONARY BYPASS GRAFT Status: Acute - Plan DVT proph w/SCDs Cont supportive care Cont ASA/Statins/Amiodarone/Digoxin Cont low dose Coreg Cont Thiamine Not on ACEI/ARB/Aldactone due to BP on lower side Add MVM and Folic acid Await Tele bed SHARON Hedrick in 1-2 days
[2019-04-19] MEDS: Amiodarone 200 MG TAB PO SCH (20:36)
[2019-04-19] MEDS: Atorvastatin Calcium 20 MG TAB PO SCH (20:36)
--- NOTE | 2019-04-19 21:37 | PRG ---
DATE OF SERVICE: 04/19/2019 SUBJECTIVE: Abelino Zaidi's events over the last week have been reviewed. OBJECTIVE: GENERAL: He is in no distress. VITAL SIGNS: He is afebrile, heart rate 71, respiratory rate is 20, oximetry is 99% on room air, blood pressure 128/68. LUNGS: Clear. HEART: Regular rhythm. S1 and S2 are normal. ABDOMEN: Soft. EXTREMITIES: Without edema. IMAGING STUDIES: Chest x-ray from yesterday was reviewed. He has some haziness in his left base, which likely is atelectasis or effusion. LABORATORY DATA: White count is 9.9, hemoglobin 9.7, platelets 123,000. Electrolytes are normal. BUN 35 and creatinine 1.1, which is down from 1.89 yesterday. IMPRESSION: 1. Status post rapid atrial fibrillation on presentation with acute mitral regurgitation leading to mitral valve replacement and coronary artery bypass grafting. 2. Underlying significant obstructive lung disease. He has done surprisingly well considering his presenting clinical problems. 3. Status post left internal mammary lymph node biopsy that was negative for malignancy. PLAN: Overall, he looks quite well and according to his son, 100% better than he did on presentation. Job ID: [id number]
[2019-04-20] MEDS: traMADol HCl 50 MG TAB PO PRN ×2 (08:17→18:21)
[2019-04-20] MEDS: Amiodarone 200 MG TAB PO SCH ×2 (08:18→21:12)
[2019-04-20] MEDS: Carvedilol 3.125 MG TAB PO SCH ×2 (08:18→18:21)
[2019-04-20] MEDS: Aspirin 325 mg Enteric Coated Tablet PO SCH (08:18)
[2019-04-20] MEDS: Digoxin 0.125 MG TAB PO SCH (08:18)
[2019-04-20] MEDS: Thiamine 100 MG TAB PO SCH (08:19)
[2019-04-20] MEDS: Cyanocobalamin (Vitamin B-12) 1,000 MCG TAB PO SCH (08:24)
[2019-04-20] MEDS: Folic Acid 1 MG TAB PO SCH (10:31)
[2019-04-20] MEDS: Multivit, Therapeutic 1 TAB PO SCH (10:31)
--- NOTE | 2019-04-20 13:43 | PRG ---
DATE OF SERVICE: 04/20/2019 SUBJECTIVE: Mr. Zaidi is doing well. He has no complaints. He is sitting up in a chair and he eats breakfast. He said he was feeling like he might be close to have the bowel movement. OBJECTIVE: VITAL SIGNS: Afebrile, heart rate is 91, respiratory rate 17, oximetry is 95% on room air, and blood pressure 129/76. LUNGS: Clear. HEART: Regular rhythm. S1 and S2 are normal. ABDOMEN: Soft. IMPRESSION: 1. Status post mitral valve replacement, coronary artery bypass grafting. 2. Underlying chronic obstructive pulmonary disease. 3. Underlying severe anxiety. 4. Overall, he is clinically doing much better than I would have expected. We will continue with current care. He is being transferred out of the Critical Care to telemetry unit . Job ID: [id number] MTDD
[2019-04-20 14:41] LABS: Actual Bicarbonate (HCO3a) 24.7 mEq/L (22-28); Analyzer IN Cardio OR; Base Excess (BEa) 0.1 mEq/L (-2.0 to +3.0); CO2 Tension 39.7 mmHg (35.0-45.0); Carboxyhemoglobin (COHb) 0.3 gm% (0.0-3.0); Hemoglobin (Hb) 9.5 g/dL (14.0-18.0); O2 Tension (PaO2) 445.9 mmHg (> 70.0); Potassium - ABG Lab 4.14 mmol/L (3.70-5.30); pH, Arterial 7.41 (7.35-7.45)
[2019-04-20 14:41] LABS: Actual Bicarbonate (HCO3a) 23.5 mEq/L (22-28); Analyzer IN Cardio OR; Base Excess (BEa) -1.6 mEq/L (-2.0 to +3.0); CO2 Tension 40.9 mmHg (35.0-45.0); Calcium, Ionized 0.98 mmol/L (1.12-1.30); Carboxyhemoglobin (COHb) 0.3 gm% (0.0-3.0); Potassium - ABG Lab 4.25 mmol/L (3.70-5.30); pH, Arterial 7.38 (7.35-7.45)
[2019-04-20 14:42] LABS: Actual Bicarbonate (HCO3a) 23.7 mEq/L (22-28); Analyzer IN Cardio OR; CO2 Tension 39.1 mmHg (35.0-45.0); Calcium, Ionized 0.94 mmol/L (1.12-1.30); Carboxyhemoglobin (COHb) 0.6 gm% (0.0-3.0); Hemoglobin (Hb) 10.4 g/dL (14.0-18.0); O2 Tension (PaO2) 418.7 mmHg (> 70.0); Potassium - ABG Lab 4.24 mmol/L (3.70-5.30)
[2019-04-20 14:42] LABS: Actual Bicarbonate (HCO3a) 24.8 mEq/L (22-28); Analyzer IN Cardio OR; Base Excess (BEa) -0.4 mEq/L (-2.0 to +3.0); CO2 Tension 42.8 mmHg (35.0-45.0); Calcium, Ionized 0.99 mmol/L (1.12-1.30); Carboxyhemoglobin (COHb) 0.8 gm% (0.0-3.0); Hemoglobin (Hb) 10.5 g/dL (14.0-18.0); O2 Tension (PaO2) 108.3 mmHg (> 70.0); pH, Arterial 7.38 (7.35-7.45)
[2019-04-20 14:43] LABS: Actual Bicarbonate (HCO3a) 25.8 mEq/L (22-28); Analyzer IN Cardio OR; Base Excess (BEa) 0.2 mEq/L (-2.0 to +3.0); CO2 Tension 45.5 mmHg (35.0-45.0); Calcium, Ionized 1.09 mmol/L (1.12-1.30); Carboxyhemoglobin (COHb) 0.6 gm% (0.0-3.0); Hemoglobin (Hb) 13.4 g/dL (14.0-18.0); O2 Tension (PaO2) 237.7 mmHg (> 70.0); Potassium - ABG Lab 3.72 mmol/L (3.70-5.30); pH, Arterial 7.37 (7.35-7.45)
[2019-04-20 14:44] LABS: Actual Bicarbonate (HCO3a) 26.1 mEq/L (22-28); Analyzer IN Cardio OR; Base Excess (BEa) 1.1 mEq/L (-2.0 to +3.0); CO2 Tension 42.8 mmHg (35.0-45.0); Calcium, Ionized 1.11 mmol/L (1.12-1.30); Carboxyhemoglobin (COHb) 1.2 gm% (0.0-3.0); Hemoglobin (Hb) 13.7 g/dL (14.0-18.0); O2 Tension (PaO2) 296.6 mmHg (> 70.0); Potassium - ABG Lab 3.65 mmol/L (3.70-5.30)
[2019-04-20 14:44] LABS: Actual Bicarbonate (HCO3a) 25.2 mEq/L (22-28); Analyzer IN Cardio OR; Base Excess (BEa) -1.2 mEq/L (-2.0 to +3.0); CO2 Tension 50.1 mmHg (35.0-45.0); Calcium, Ionized 1.04 mmol/L (1.12-1.30); Carboxyhemoglobin (COHb) 0.2 gm% (0.0-3.0); Hemoglobin (Hb) 10.6 g/dL (14.0-18.0); O2 Tension (PaO2) 421.9 mmHg (> 70.0); Potassium - ABG Lab 3.89 mmol/L (3.70-5.30); pH, Arterial 7.32 (7.35-7.45)
[2019-04-20 14:45] LABS: Puncture Site ALINE
[2019-04-20 14:45] LABS: Puncture Site ALINE
[2019-04-20 14:45] LABS: Puncture Site ALINE
[2019-04-20 14:46] LABS: Puncture Site ALINE
[2019-04-20 14:46] LABS: Puncture Site ALINE
[2019-04-20 14:47] LABS: Puncture Site ALINE
[2019-04-20 14:47] LABS: Puncture Site ALINE
--- NOTE | 2019-04-20 18:22 | PDOC.HOSPP ---
- Subjective Subjective: Patient seen and examined for CAD/Afib s/p CABG. No CP/SOB or palpitations. No new complaints. No overnight events - Objective Vital Signs & Weight: Vital Signs (12 hours) Temp Pulse Pulse Pulse Resp BP BP 04/20/19 16:00 98.1 F 113 H 17 04/20/19 15:01 106 H 113 H 137/71 134/79 04/20/19 13:49 58 L 16 04/20/19 12:00 97.5 F L 91 17 04/20/19 11:02 115 H 91 121/81 129/76 04/20/19 09:30 04/20/19 09:22 98.0 F 98 16 04/20/19 08:18 65 04/20/19 08:00 98.8 F 81 19 04/20/19 07:00 98.8 F 04/20/19 06:44 04/20/19 06:37 65 19 BP BP Pulse Ox 04/20/19 16:00 113/79 96 04/20/19 15:01 04/20/19 13:49 93 L 04/20/19 12:00 129/76 95 04/20/19 11:02 04/20/19 09:30 100 04/20/19 09:22 138/73 100 04/20/19 08:18 04/20/19 08:00 139/54 L 96 04/20/19 07:00 04/20/19 06:44 95 04/20/19 06:37 95 Weight Admit Weight 146 lb Weight 150 lb 9.6 oz Most Recent Monitor Data Heart Rate from ECG 65 NIBP 156/85 NIBP BP-Mean 108 Respiration from ECG 17 SpO2 87 I&O: 04/19/19 04/20/19 04/21/19 06:59 06:59 06:59 Intake Total 1080 1420 200 Output Total 1185 1210 300 Balance -105 210 -100 Result Diagrams: 04/19/19 03:05 04/19/19 03:05 EKG Reviewed by me: Yes (Tele Afib) ROS - Review of Systems All systems: All other ROS were reviewed and found negative. Respiratory: denies: cough, dry, shortness of breath, hemoptysis, SOB with excertion, pleuritic pain, sputum, wheezing, other Cardiovascular: denies: chest pain, palpitations, orthopnea, paroxysmal noc. dyspnea, edema, light headedness, other Gastrointestinal: denies: nausea, vomitting, abdominal pain, diarrhea, constipation, melena, hematochezia, other - Medication Medications: Active Medications Generic Name Dose Route Start Last Admin Trade Name Freq PRN Reason Stop Dose Admin Acetaminophen 650 mg 04/16/19 13:30 04/17/19 09:46 Tylenol PO 650 mg Q6H PRN Administration Headache/Fever Or Mild Pain Albuterol/Ipratropium 3 ml 04/16/19 13:00 04/20/19 13:49 Duoneb NEB 3 ml [id number] JUNAID Administration Amiodarone HCl 200 mg 04/19/19 21:00 04/20/19 08:18 Cordarone PO 200 mg BID JUNAID Administration Aspirin 325 mg 04/19/19 09:00 04/20/19 08:18 Ecotrin PO 325 mg DAILY JUNAID Administration Atorvastatin Calcium 20 mg 04/16/19 21:00 04/19/19 20:36 Lipitor PO 20 mg HS JUNAID Administration Bisacodyl 10 mg 04/19/19 07:38 04/20/19 08:17 Dulcolax PO 10 mg Q12H PRN Administration Constipation Carvedilol 1.5625 mg 04/19/19 17:00 04/20/19 08:18 Coreg PO 1.5625 mg BID-WM JUNAID Administration Cyanocobalamin 1,000 mcg 04/17/19 09:00 04/20/19 08:24 Vitamin B-12 PO 1,000 mcg DAILY JUNAID Administration Digoxin 0.125 mg 04/17/19 09:00 04/20/19 08:18 Lanoxin PO 0.125 mg DAILY JUNAID Administration Folic Acid 1 mg 04/20/19 09:00 04/20/19 10:31 Folvite PO 1 mg DAILY JUNAID Administration Guaifenesin/Dextromethorphan 15 ml 04/19/19 07:38 04/19/19 10:05 Robitussin Dm PO 15 ml Q4H PRN Administration Cough Hydralazine HCl 10 mg 04/16/19 13:30 04/19/19 00:19 Apresoline SLOW IVP 10 mg Q6H PRN Administration To Maintain SBP< 140mmHG Multivitamins 1 tab 04/20/19 09:00 04/20/19 10:31 Theragran PO 1 tab DAILY JUNAID Administration Ondansetron HCl 4 mg 04/16/19 13:30 04/17/19 15:25 Zofran IVP 4 mg Q6H PRN Administration Nausea/Vomiting Pantoprazole Sodium 40 mg 04/18/19 09:00 04/20/19 08:18 Protonix PO 40 mg DAILY JUNAID Administration Potassium Chloride 20 meq 04/16/19 13:30 04/16/19 15:55 Kcl IVPB 20 meq PRN PRN Administration K level </= 4.0 Thiamine HCl 100 mg 04/17/19 09:00 04/20/19 08:19 Thiamine PO 100 mg DAILY JUNAID Administration Tramadol HCl 50 mg 04/16/19 13:30 04/20/19 08:17 Ultram PO 50 mg Q6H PRN Administration Pain - Exam NAD Heart: no rubs, irregular Respiratory: CTAB, no ronchi Gastrointestinal: soft, non-tender, normal bowel sounds Extremities: no edema Hosp A/P (1) Acute respiratory failure with hypoxia Code(s): J96.01 - ACUTE RESPIRATORY FAILURE WITH HYPOXIA (2) CAD (coronary artery disease) Code(s): I25.10 - ATHSCL HEART DISEASE OF [place] CORONARY ARTERY W/O ANG PCTRS (3) COPD exacerbation Code(s): J44.1 - CHRONIC OBSTRUCTIVE PULMONARY DISEASE W (ACUTE) EXACERBATION (4) Atrial fibrillation with RVR Code(s): I48.91 - UNSPECIFIED ATRIAL FIBRILLATION (5) Acute systolic heart failure Code(s): I50.21 - ACUTE SYSTOLIC (CONGESTIVE) HEART FAILURE (6) Chronic alcoholism Code(s): F10.20 - ALCOHOL DEPENDENCE, UNCOMPLICATED (7) Mitral insufficiency (8) S/P CABG (coronary artery bypass graft) Code(s): Z95.1 - PRESENCE OF AORTOCORONARY BYPASS GRAFT - Plan DVT proph w/SCDs Cont supportive care Cont ASA/Statins Cont Amiodarone/Digoxin Cont Coreg Cont Thiamine/MVM/Folic acid Not on ACEI/ARB/Aldactone due to BP on lower side Rehab eval Cont to monitor
[2019-04-20] MEDS: Atorvastatin Calcium 20 MG TAB PO SCH (21:12)
[2019-04-21 05:21] LABS: Hemoglobin 10.2 g/dL (14.0-18.0)
[2019-04-21 05:43] LABS: Anion Gap 11 mmol/L (10-20); BUN (Urea Nitrogen) 20 mg/dL (8.4-25.7); Calc. Creatinine Clearance 79 mL/min (70-130); Calcium 8.5 mg/dL (7.8-10.44); Carbon Dioxide 23 mmol/L (23-31); Chloride 104 mmol/L (98-107); Estimated GFR-MDRD Greater than 90; Glucose 92 mg/dL (83-110); Magnesium 1.6 mg/dL (1.6-2.6); Phosphorus 2.6 mg/dL (2.3-4.7); Potassium 3.7 mmol/L (3.5-5.1); Sodium 134 mmol/L (136-145)
[2019-04-21] MEDS: Carvedilol 3.125 MG TAB PO SCH ×2 (08:57→17:36)
[2019-04-21] MEDS: Cyanocobalamin (Vitamin B-12) 1,000 MCG TAB PO SCH (08:58)
[2019-04-21] MEDS: Thiamine 100 MG TAB PO SCH (08:58)
[2019-04-21] MEDS: Aspirin 325 mg Enteric Coated Tablet PO SCH (08:58)
[2019-04-21] MEDS: Multivit, Therapeutic 1 TAB PO SCH (08:58)
[2019-04-21] MEDS: Digoxin 0.125 MG TAB PO SCH (08:58)
[2019-04-21] MEDS: Folic Acid 1 MG TAB PO SCH (08:58)
[2019-04-21] MEDS: Amiodarone 200 MG TAB PO SCH ×2 (08:59→21:08)
[2019-04-21] MEDS ORDERED: Magnesium 2 GM/50 ML 2 GM in Premix Bag 1 BAG IVPB SCH (09:45)
--- NOTE | 2019-04-21 13:22 | EKG ---
Test Reason : Blood Pressure : / mmHG Vent. Rate : 078 BPM Atrial Rate : 241 BPM P-R Int : 000 ms QRS Dur : 102 ms QT Int : 372 ms P-R-T Axes : 000 -18 111 degrees QTc Int : 424 ms Poor data quality, interpretation may be adversely affected Atypical atrial flutter Nonspecific ST and T wave abnormality , probably digitalis effect Abnormal ECG When compared with ECG of 16-APR-2019 13:32, Atrial fibrillation has replaced Electronic ventricular pacemaker Confirmed by MAURICE ANAND (2) on 04/21/2019 1:22:45 PM Referred By: CHENG Confirmed By:MAURICE ANAND
[2019-04-21 15:03] VITALS: BMI 20.5
[2019-04-21] MEDS: BEER 1 CAN PO SCH (17:36)
--- NOTE | 2019-04-21 17:37 | PDOC.HOSPP ---
- Subjective Subjective: Patient seen and examined for CAD/AFib. No CP. No new complaints. No overnight events - Objective Vital Signs & Weight: Vital Signs (12 hours) Temp Pulse Pulse Pulse Resp BP BP 04/21/19 16:30 99.1 F 67 18 04/21/19 14:21 68 134/69 127/71 04/21/19 13:34 71 14 04/21/19 12:00 99.1 F 91 18 04/21/19 11:04 94 95 190/104 H 139/75 04/21/19 08:58 109 H 04/21/19 08:45 04/21/19 08:00 100 F H 109 H 18 04/21/19 07:12 85 14 BP BP Pulse Ox 04/21/19 16:30 125/67 04/21/19 14:21 04/21/19 13:34 97 04/21/19 12:00 132/73 93 L 04/21/19 11:04 04/21/19 08:58 04/21/19 08:45 94 L 04/21/19 08:00 160/101 H 94 L 04/21/19 07:12 95 Weight Admit Weight 147 lb 8 oz Weight 143 lb 1.6 oz Most Recent Monitor Data Heart Rate from ECG 65 NIBP 156/85 NIBP BP-Mean 108 Respiration from ECG 17 SpO2 87 I&O: 04/20/19 04/21/19 04/22/19 06:59 06:59 06:59 Intake Total 1420 680 474 Output Total 1210 300 Balance 210 380 474 Result Diagrams: 04/21/19 04:43 04/21/19 04:43 EKG Reviewed by me: Yes (Tele SR) ROS - Review of Systems All systems: All other ROS were reviewed and found negative. Respiratory: denies: cough, dry, shortness of breath, hemoptysis, SOB with excertion, pleuritic pain, sputum, wheezing, other Cardiovascular: denies: chest pain, palpitations, orthopnea, paroxysmal noc. dyspnea, edema, light headedness, other Gastrointestinal: denies: nausea, vomitting, abdominal pain, diarrhea, constipation, melena, hematochezia, other - Medication Medications: Active Medications Generic Name Dose Route Start Last Admin Trade Name Freq PRN Reason Stop Dose Admin Acetaminophen 650 mg 04/16/19 13:30 04/17/19 09:46 Tylenol PO 650 mg Q6H PRN Administration Headache/Fever Or Mild Pain Albuterol/Ipratropium 3 ml 04/16/19 13:00 04/21/19 13:34 Duoneb NEB 3 ml [id number] JUNAID Administration Amiodarone HCl 400 mg 04/20/19 21:00 04/21/19 08:59 Cordarone PO 400 mg BID JUNAID Administration Aspirin 325 mg 04/19/19 09:00 04/21/19 08:58 Ecotrin PO 325 mg DAILY JUNAID Administration Atorvastatin Calcium 20 mg 04/16/19 21:00 04/20/19 21:12 Lipitor PO 20 mg HS JUNAID Administration Bisacodyl 10 mg 04/19/19 07:38 04/20/19 08:17 Dulcolax PO 10 mg Q12H PRN Administration Constipation Carvedilol 1.5625 mg 04/19/19 17:00 04/21/19 08:57 Coreg PO 1.5625 mg BID-WM JUNAID Administration Cyanocobalamin 1,000 mcg 04/17/19 09:00 04/21/19 08:58 Vitamin B-12 PO 1,000 mcg DAILY JUNAID Administration Digoxin 0.125 mg 04/17/19 09:00 04/21/19 08:58 Lanoxin PO 0.125 mg DAILY JUNAID Administration Folic Acid 1 mg 04/20/19 09:00 04/21/19 08:58 Folvite PO 1 mg DAILY JUNAID Administration Guaifenesin/Dextromethorphan 15 ml 04/19/19 07:38 04/19/19 10:05 Robitussin Dm PO 15 ml Q4H PRN Administration Cough Hydralazine HCl 10 mg 04/16/19 13:30 04/19/19 00:19 Apresoline SLOW IVP 10 mg Q6H PRN Administration To Maintain SBP< 140mmHG Multivitamins 1 tab 04/20/19 09:00 04/21/19 08:58 Theragran PO 1 tab DAILY JUNAID Administration Ondansetron HCl 4 mg 04/16/19 13:30 04/17/19 15:25 Zofran IVP 4 mg Q6H PRN Administration Nausea/Vomiting Pantoprazole Sodium 40 mg 04/18/19 09:00 04/21/19 08:58 Protonix PO 40 mg DAILY JUNAID Administration Potassium Chloride 20 meq 04/16/19 13:30 04/16/19 15:55 Kcl IVPB 20 meq PRN PRN Administration K level </= 4.0 Thiamine HCl 100 mg 04/17/19 09:00 04/21/19 08:58 Thiamine PO 100 mg DAILY JUNAID Administration Tramadol HCl 50 mg 04/16/19 13:30 04/20/19 18:21 Ultram PO 50 mg Q6H PRN Administration Pain - Exam NAD Heart: RRR, no rubs Respiratory: CTAB, no rales Gastrointestinal: soft, non-tender, normal bowel sounds Extremities: no edema Psychiatric: normal affect, A&O x 3 Hosp A/P (1) Acute respiratory failure with hypoxia Code(s): J96.01 - ACUTE RESPIRATORY FAILURE WITH HYPOXIA (2) CAD (coronary artery disease) Code(s): I25.10 - ATHSCL HEART DISEASE OF [place] CORONARY ARTERY W/O ANG PCTRS (3) COPD exacerbation Code(s): J44.1 - CHRONIC OBSTRUCTIVE PULMONARY DISEASE W (ACUTE) EXACERBATION (4) Atrial fibrillation with RVR Code(s): I48.91 - UNSPECIFIED ATRIAL FIBRILLATION (5) Acute systolic heart failure Code(s): I50.21 - ACUTE SYSTOLIC (CONGESTIVE) HEART FAILURE (6) Chronic alcoholism Code(s): F10.20 - ALCOHOL DEPENDENCE, UNCOMPLICATED (7) Mitral insufficiency (8) S/P CABG (coronary artery bypass graft) Code(s): Z95.1 - PRESENCE OF AORTOCORONARY BYPASS GRAFT - Plan plan discussed w/ family, PT/OT Patient converted to SR earlier today Cont Aspirin/Statins Cont Amiodarone/Digoxin/Coreg Cont other meds as above Not on ACEI/ARB/Aldactone due to BP on lower side Cont to monitor Repeat CXR today
--- NOTE | 2019-04-21 18:24 | RAD ---
2 views chest: 04/21/2019 COMPARISON: 01/07/2019 and 04/18/2019 HISTORY: Left pleural effusion FINDINGS: Stable right-sided vascular catheter and midline sternotomy wires. There is worsening bibas ilar pleural and parenchymal opacity, right greater than left, suggesting bilateral small pleural effusions. Perihilar and bibasilar interstitial prominence noted. IMPRESSION: New right and enlarging left pleural effusion. Question pulmonary edema. Infectious pneum onitis cannot be excluded. A follow-up imaging following treatment to document resolution advised.
[2019-04-21] MEDS: Atorvastatin Calcium 20 MG TAB PO SCH (21:08)
--- NOTE | 2019-04-21 21:11 | PRG ---
DATE OF SERVICE: 04/21/2019 SUBJECTIVE: Mr. Zaidi is doing well, although he is now seen. When I saw him today that he did want to go to rehab, and he wanted to go straight home. I do not think he is ready, but I did give him a goal. If he can get to where he is walking 400 feet, he probably does not need to go to rehab. He would not walk today and the therapist actually had to stop him. He said he wanted to go further. He is missing having a beer in the evening and I think, that is the main reason he wants to go home. They have added a beer with his supper and put him back on the same dose he takes at home of lorazepam 0.5 mg in the morning p.r.n. OBJECTIVE: VITAL SIGNS: He is afebrile. Heart rate is 59, respiratory rate is 20, oximetry is 97% on room air, and blood pressure 144/74. LUNGS: Clear and distant. HEART: Regular rhythm. There is a grade 2/6 systolic murmur. ABDOMEN: Soft and nontender. EXTREMITIES: Without edema. LABORATORY DATA: Hemoglobin is 10.2 today. Sodium 134, potassium 3.7, chloride 104, bicarb 23, BUN 20, and creatinine 0.82. IMPRESSION: 1. Status post coronary artery bypass grafting, mitral valve replacement. 2. Underlying chronic obstructive pulmonary disease, clinically stable. 3. Severe reduction in ejection fraction preop. He had a followup echocardiogram done today which shows a left pleural effusion, which is not unexpected after heart surgery. His ejection fraction now is 25% to 30%. 4. He has moderate mitral regurgitation. We will continue to follow. Appears to be stable at this time. Job ID: [id number]
[2019-04-22] MEDS ORDERED: Furosemide 40 MG TAB PO SCH (09:00)
[2019-04-22] MEDS ORDERED: Spironolactone 25 MG TAB PO SCH (09:00)
[2019-04-22] MEDS: Digoxin 0.125 MG TAB PO SCH (10:14)
[2019-04-22] MEDS: Multivit, Therapeutic 1 TAB PO SCH (10:15)
[2019-04-22] MEDS: Thiamine 100 MG TAB PO SCH (10:15)
[2019-04-22] MEDS: Cyanocobalamin (Vitamin B-12) 1,000 MCG TAB PO SCH (10:15)
[2019-04-22] MEDS: Amiodarone 200 MG TAB PO SCH ×2 (10:15→21:08)
[2019-04-22] MEDS: Aspirin 325 mg Enteric Coated Tablet PO SCH (10:15)
[2019-04-22] MEDS: Carvedilol 3.125 MG TAB PO SCH ×2 (10:16→12:32)
[2019-04-22] MEDS: Folic Acid 1 MG TAB PO SCH (10:16)
[2019-04-22] MEDS: Lorazepam 0.5 MG TAB PO SCH (10:16)
--- NOTE | 2019-04-22 10:23 | RAD ---
TWO VIEWS CHEST: Comparison: 04-21-19 History: Status post CABG and mitral valve replacement. FINDINGS: Two views of the chest shows an enlarged but stable cardiomediastinal silhouette. The patient is stat us post sternotomy. The central venous catheter is unchanged in position. There are small bilateral e ffusions with adjacent atelectasis. IMPRESSION: Stable exam. POS: [facility]
--- NOTE | 2019-04-22 10:57 | PRG ---
DATE OF SERVICE: 04/22/2019 SUBJECTIVE: Abelino Zaidi he did well overnight. He is a little wobbly on his feet, but he is improving. OBJECTIVE: VITAL SIGNS: He is afebrile, heart rate 65, respiratory rate 18, oximetry is 96 on room air, and blood pressure 161/94. IMAGING STUDIES: Chest x-ray today shows small bilateral effusions. IMPRESSION AND PLAN: Congestive heart failure with mitral regurgitation. I was mistaken in earlier dictations. I thought he had mitral valve replacement, but he had a mitral ring repair, which would explain his mitral regurgitation. This likely explains his pleural effusions. We will continue with supportive care. He waxes and wanes about whether or not he is willing to go into rehab, but I have explained to him that he cannot go home. He has a fall risk at this time. He may require LifeVest as well. Dr. Fletcher has restarted diuretics today. We will continue to follow. Job ID: [id number]
--- NOTE | 2019-04-22 14:51 | PDOC.HOSPP ---
- Subjective Subjective: Patient seen and examined for Resp failure. No CP/SOB. No new complaints. No overnight events - Objective Vital Signs & Weight: Vital Signs (12 hours) Temp Pulse Resp BP BP Pulse Ox 04/22/19 13:33 73 16 96 04/22/19 12:00 97.4 F L 62 18 168/88 H 04/22/19 10:14 65 04/22/19 08:38 99.6 F 65 18 161/94 H 04/22/19 06:41 60 16 96 04/22/19 03:25 97.8 F 59 L 15 156/78 H 92 L Weight Admit Weight 147 lb 8 oz Weight 142 lb 8 oz Most Recent Monitor Data Heart Rate from ECG 65 NIBP 156/85 NIBP BP-Mean 108 Respiration from ECG 17 SpO2 87 I&O: 04/21/19 04/22/19 04/23/19 06:59 06:59 06:59 Intake Total 680 1354 237 Output Total 300 500 Balance 380 854 237 Result Diagrams: 04/21/19 04:43 04/21/19 04:43 EKG Reviewed by me: Yes (Tele SR) ROS - Review of Systems All systems: All other ROS were reviewed and found negative. Respiratory: denies: cough, dry, shortness of breath, hemoptysis, SOB with excertion, pleuritic pain, sputum, wheezing, other Cardiovascular: denies: chest pain, palpitations, orthopnea, paroxysmal noc. dyspnea, edema, light headedness, other Gastrointestinal: denies: nausea, vomitting, abdominal pain, diarrhea, constipation, melena, hematochezia, other - Medication Medications: Active Medications Generic Name Dose Route Start Last Admin Trade Name Freq PRN Reason Stop Dose Admin Acetaminophen 650 mg 04/16/19 13:30 04/17/19 09:46 Tylenol PO 650 mg Q6H PRN Administration Headache/Fever Or Mild Pain Albuterol/Ipratropium 3 ml 04/16/19 13:00 04/22/19 13:33 Duoneb NEB 3 ml [id number] JUNAID Administration Amiodarone HCl 400 mg 04/20/19 21:00 04/22/19 10:15 Cordarone PO 400 mg BID JUNAID Administration Aspirin 325 mg 04/19/19 09:00 04/22/19 10:15 Ecotrin PO 325 mg DAILY JUNAID Administration Atorvastatin Calcium 20 mg 04/16/19 21:00 04/21/19 21:08 Lipitor PO 20 mg HS JUNAID Administration Beer 1 each 04/21/19 17:00 04/21/19 17:36 Beer PO Not Given 1700 JUNAID Bisacodyl 10 mg 04/19/19 07:38 04/20/19 08:17 Dulcolax PO 10 mg Q12H PRN Administration Constipation Carvedilol 3.125 mg 04/22/19 17:00 04/22/19 10:16 Coreg PO 3.125 mg BID-WM JUNAID Administration Cyanocobalamin 1,000 mcg 04/17/19 09:00 04/22/19 10:15 Vitamin B-12 PO 1,000 mcg DAILY JUNAID Administration Digoxin 0.125 mg 04/17/19 09:00 04/22/19 10:14 Lanoxin PO 0.125 mg DAILY JUNAID Administration Folic Acid 1 mg 04/20/19 09:00 04/22/19 10:16 Folvite PO 1 mg DAILY JUNAID Administration Guaifenesin/Dextromethorphan 15 ml 04/19/19 07:38 04/19/19 10:05 Robitussin Dm PO 15 ml Q4H PRN Administration Cough Hydralazine HCl 10 mg 04/16/19 13:30 04/19/19 00:19 Apresoline SLOW IVP 10 mg Q6H PRN Administration To Maintain SBP< 140mmHG Lorazepam 0.5 mg 04/22/19 09:00 04/22/19 10:16 Ativan PO 0.5 mg QAM JUNAID Administration Multivitamins 1 tab 04/20/19 09:00 04/22/19 10:15 Theragran PO 1 tab DAILY JUNAID Administration Ondansetron HCl 4 mg 04/16/19 13:30 04/17/19 15:25 Zofran IVP 4 mg Q6H PRN Administration Nausea/Vomiting Pantoprazole Sodium 40 mg 04/18/19 09:00 04/22/19 10:16 Protonix PO 40 mg DAILY JUNAID Administration Potassium Chloride 20 meq 04/16/19 13:30 04/16/19 15:55 Kcl IVPB 20 meq PRN PRN Administration K level </= 4.0 Thiamine HCl 100 mg 04/17/19 09:00 04/22/19 10:15 Thiamine PO 100 mg DAILY JUNAID Administration Tramadol HCl 50 mg 04/16/19 13:30 04/20/19 18:21 Ultram PO 50 mg Q6H PRN Administration Pain - Exam NAD Heart: RRR, no gallops Respiratory: CTAB, no rales (dec AE at bases) Gastrointestinal: soft, non-tender, normal bowel sounds Extremities: no edema Psychiatric: A&O x 3 Hosp A/P (1) Acute respiratory failure with hypoxia Code(s): J96.01 - ACUTE RESPIRATORY FAILURE WITH HYPOXIA (2) COPD exacerbation Code(s): J44.1 - CHRONIC OBSTRUCTIVE PULMONARY DISEASE W (ACUTE) EXACERBATION (3) CAD (coronary artery disease) Code(s): I25.10 - ATHSCL HEART DISEASE OF [place] CORONARY ARTERY W/O ANG PCTRS (4) Acute systolic heart failure Code(s): I50.21 - ACUTE SYSTOLIC (CONGESTIVE) HEART FAILURE (5) Chronic alcoholism Code(s): F10.20 - ALCOHOL DEPENDENCE, UNCOMPLICATED (6) Mitral insufficiency (7) S/P CABG (coronary artery bypass graft) Code(s): Z95.1 - PRESENCE OF AORTOCORONARY BYPASS GRAFT (8) Atrial fibrillation with RVR Code(s): I48.91 - UNSPECIFIED ATRIAL FIBRILLATION - Plan Remains in SR Cont Amiodarone/Digoxin Coreg dose increased on Aspirin/Statins Started on Lasix with Aldactone Not on ACEI/ARB due to BP on lower side Cont other meds as above Await placement - stable for dc
[2019-04-22] MEDS: BEER 1 CAN PO SCH (19:20)
[2019-04-22] MEDS: Atorvastatin Calcium 20 MG TAB PO SCH (21:08)
[2019-04-23 05:05] LABS: Anion Gap 11 mmol/L (10-20); BUN (Urea Nitrogen) 21 mg/dL (8.4-25.7); Calc. Creatinine Clearance 63 mL/min (70-130); Carbon Dioxide 26 mmol/L (23-31); Chloride 105 mmol/L (98-107); Estimated GFR-MDRD 76; Glucose 101 mg/dL (83-110); Potassium 3.7 mmol/L (3.5-5.1); Sodium 138 mmol/L (136-145)
[2019-04-23] MEDS ORDERED: Furosemide 40 MG TAB PO SCH (07:30)
[2019-04-23] MEDS ORDERED: Spironolactone 25 MG TAB PO SCH (08:00)
[2019-04-23] MEDS: Carvedilol 3.125 MG TAB PO SCH ×2 (08:46→16:25)
[2019-04-23] MEDS: Aspirin 325 mg Enteric Coated Tablet PO SCH (08:46)
[2019-04-23] MEDS: Thiamine 100 MG TAB PO SCH (08:46)
[2019-04-23] MEDS: Digoxin 0.125 MG TAB PO SCH (08:46)
[2019-04-23] MEDS: Cyanocobalamin (Vitamin B-12) 1,000 MCG TAB PO SCH (08:48)
[2019-04-23] MEDS: Amiodarone 200 MG TAB PO SCH (08:48)
[2019-04-23] MEDS: Multivit, Therapeutic 1 TAB PO SCH (08:48)
[2019-04-23] MEDS: Lorazepam 0.5 MG TAB PO SCH (08:48)
[2019-04-23] MEDS: Folic Acid 1 MG TAB PO SCH (08:48)
--- NOTE | 2019-04-23 09:35 | PDOC.HOSPP ---
- Subjective Subjective: Patient seen and examined for CAD. No CP or SOB. No new complaints. No overnight events - Objective Vital Signs & Weight: Vital Signs (12 hours) Temp Pulse Resp BP Pulse Ox 04/23/19 08:46 63 04/23/19 07:54 99.7 F H 63 18 160/80 H 96 04/23/19 06:53 63 16 95 04/23/19 04:00 98.0 F 65 19 169/81 H 94 L 04/23/19 00:09 60 16 Weight Admit Weight 147 lb 8 oz Weight 5.016 oz Most Recent Monitor Data Heart Rate from ECG 65 NIBP 156/85 NIBP BP-Mean 108 Respiration from ECG 17 SpO2 87 I&O: 04/22/19 04/23/19 04/24/19 06:59 06:59 06:59 Intake Total 1354 792 Output Total 500 Balance 854 792 Result Diagrams: 04/21/19 04:43 04/23/19 04:28 EKG Reviewed by me: Yes (Tele SR) ROS - Review of Systems All systems: All other ROS were reviewed and found negative. Respiratory: denies: cough, dry, shortness of breath, hemoptysis, SOB with excertion, pleuritic pain, sputum, wheezing, other Cardiovascular: denies: chest pain, palpitations, orthopnea, paroxysmal noc. dyspnea, edema, light headedness, other Gastrointestinal: denies: nausea, vomitting, abdominal pain, diarrhea, constipation, melena, hematochezia, other - Medication Medications: Active Medications Generic Name Dose Route Start Last Admin Trade Name Freq PRN Reason Stop Dose Admin Acetaminophen 650 mg 04/16/19 13:30 04/17/19 09:46 Tylenol PO 650 mg Q6H PRN Administration Headache/Fever Or Mild Pain Albuterol/Ipratropium 3 ml 04/16/19 13:00 04/23/19 06:53 Duoneb NEB 3 ml [id number] JUNAID Administration Amiodarone HCl 400 mg 04/20/19 21:00 04/23/19 08:48 Cordarone PO 400 mg BID JUNAID Administration Aspirin 325 mg 04/19/19 09:00 04/23/19 08:46 Ecotrin PO 325 mg DAILY JUNAID Administration Atorvastatin Calcium 20 mg 04/16/19 21:00 08/01/19 21:08 Lipitor PO 20 mg HS JUNAID Administration Beer 1 each 04/21/19 17:00 04/22/19 19:20 Beer PO Not Given 1700 JUNAID Bisacodyl 10 mg 04/19/19 07:38 04/20/19 08:17 Dulcolax PO 10 mg Q12H PRN Administration Constipation Carvedilol 3.125 mg 04/22/19 17:00 04/23/19 08:46 Coreg PO 3.125 mg BID-WM JUNAID Administration Cyanocobalamin 1,000 mcg 04/17/19 09:00 04/23/19 08:48 Vitamin B-12 PO 1,000 mcg DAILY JUNAID Administration Digoxin 0.125 mg 04/17/19 09:00 04/23/19 08:46 Lanoxin PO 0.125 mg DAILY JUNAID Administration Folic Acid 1 mg 04/20/19 09:00 04/23/19 08:48 Folvite PO 1 mg DAILY JUNAID Administration Furosemide 40 mg 04/23/19 07:30 04/23/19 08:49 Lasix PO 40 mg DAILY-AC JUNAID Administration Guaifenesin/Dextromethorphan 15 ml 04/19/19 07:38 04/19/19 10:05 Robitussin Dm PO 15 ml Q4H PRN Administration Cough Hydralazine HCl 10 mg 04/16/19 13:30 04/19/19 00:19 Apresoline SLOW IVP 10 mg Q6H PRN Administration To Maintain SBP< 140mmHG Lorazepam 0.5 mg 04/22/19 09:00 04/23/19 08:48 Ativan PO 0.5 mg QAM JUNAID Administration Multivitamins 1 tab 04/20/19 09:00 04/23/19 08:48 Theragran PO 1 tab DAILY JUNAID Administration Ondansetron HCl 4 mg 04/16/19 13:30 04/17/19 15:25 Zofran IVP 4 mg Q6H PRN Administration Nausea/Vomiting Pantoprazole Sodium 40 mg 04/18/19 09:00 04/23/19 08:47 Protonix PO 40 mg DAILY JUNAID Administration Potassium Chloride 20 meq 04/16/19 13:30 04/16/19 15:55 Kcl IVPB 20 meq PRN PRN Administration K level </= 4.0 Spironolactone 12.5 mg 04/23/19 08:00 04/23/19 08:47 Aldactone PO 12.5 mg QAM-WM JUNAID Administration Thiamine HCl 100 mg 04/17/19 09:00 04/23/19 08:46 Thiamine PO 100 mg DAILY JUNAID Administration Tramadol HCl 50 mg 04/16/19 13:30 04/20/19 18:21 Ultram PO 50 mg Q6H PRN Administration Pain - Exam NAD Heart: RRR, no rubs Respiratory: CTAB, no rales Gastrointestinal: soft, non-tender, normal bowel sounds Extremities: no edema Psychiatric: normal affect, A&O x 3 Hosp A/P (1) Acute respiratory failure with hypoxia Code(s): J96.01 - ACUTE RESPIRATORY FAILURE WITH HYPOXIA (2) COPD exacerbation Code(s): J44.1 - CHRONIC OBSTRUCTIVE PULMONARY DISEASE W (ACUTE) EXACERBATION (3) CAD (coronary artery disease) Code(s): I25.10 - ATHSCL HEART DISEASE OF [place] CORONARY ARTERY W/O ANG PCTRS (4) Acute systolic heart failure Code(s): I50.21 - ACUTE SYSTOLIC (CONGESTIVE) HEART FAILURE (5) Chronic alcoholism Code(s): F10.20 - ALCOHOL DEPENDENCE, UNCOMPLICATED (6) Mitral insufficiency (7) S/P CABG (coronary artery bypass graft) Code(s): Z95.1 - PRESENCE OF AORTOCORONARY BYPASS GRAFT (8) Atrial fibrillation with RVR Code(s): I48.91 - UNSPECIFIED ATRIAL FIBRILLATION - Plan out of bed/ambulate Cont Amiodarone/Digoxin/Coreg on Aspirin/Statins Not on ACEI/ARB due to recent JAREN Cont other meds as above Await placement - stable for dc
--- NOTE | 2019-04-23 10:00 | DIS ---
DATE OF ADMISSION: 04/09/2019 DATE OF DISCHARGE: 04/23/2019 PRINCIPAL DIAGNOSIS: Mitral regurgitation. SECONDARY DIAGNOSES: 1. Atrial fibrillation. 2. Left main coronary artery disease. 3. Chronic obstructive pulmonary disease. 4. Alcohol abuse. PROCEDURES PERFORMED: Cardiac catheterization on 04/14/2019. Transesophageal echocardiography on 04/15/2019. Mitral valve repair with 32 mm Moya annuloplasty band. Coronary artery bypass grafting x2, left internal mammary artery to the mid LAD and reverse greater saphenous vein graft from the aorta to the first obtuse marginal, epicardial maze with ligation of left atrial appendage on 04/16/2019. HISTORY OF PRESENT ILLNESS AND HOSPITAL COURSE: The patient is a 74-year-old smoker with COPD, who regularly drinks around a 6-pack of beer a day. He had been having palpitations and shortness of breath and had some improvement with the use of Seroquel and anxiolytics to treat what was being interpreted as panic attacks related to the relatively recent of child and the of his in the last few years. He presented with palpitations and marked shortness of breath and was found to be in rapid atrial fibrillation. He chemically cardioverted and evaluation demonstrated severe mitral regurgitation, left main coronary artery disease, a dilated left atrium and markedly decreased left ventricular function with an EF of around 30%. Transesophageal echocardiography seemed to indicate a defect in the posterior leaflet of the mitral valve, but at the time of surgery, the valve itself appeared to be structurally normal. An annuloplasty was performed along with bypass of his LAD and an obtuse marginal and post repair of the intraoperative LILIAM showed resolution of his mitral regurgitation. He underwent ligation of his left atrial appendage and an epicardial maze procedure coincident with his valve repair and coronary artery bypass, but perioperatively, he had some recurrence of his atrial fibrillation. Initially, it was short lived, then he had about a day or two of sustained atrial fibrillation, but again converted chemically. Echocardiography done during that period of time showed moderate mitral regurgitation. He tolerated gentle diuresis and had normalization of his creatinine after initially having it increased to a peak of 1.89. He has been fitted with a LifeVest. Inpatient rehabilitation had initially been entertained, but as his performance status seemed to be better than anticipated and two family members were able to arrange a time off from work to help care for him at home. He is now being discharged to home. He is to continue his Seroquel and p.r.n. Ativan and is being sent home with prescriptions for Coreg 3.125 mg p.o. b.i.d., digoxin 0.125 mg p.o. daily, amiodarone 400 mg p.o. b.i.d., Lipitor 20 mg at bedtime, Lasix 40 mg a day, and spironolactone 12.5 mg a day. He is to take an aspirin a day and is given a prescription for tramadol 50 mg one or two p.o. q.6 hours as needed for pain. After waiting options, taking into consideration his resumption of a sinus rhythm, ligation of his left atrial appendage, frailty and history of alcohol abuse, anticoagulation has been deferred. Although, he initially had very slow heart rates. He tolerated low-dose beta-blockers, but given his acute kidney injury, ZACK inhibitors are being deferred. He will be seen in our office in around 2 weeks. Follow up with Dr. Fletcher and Dr. Reddy will be per them. Job ID: [id number]
[2019-04-23 16:25] VITALS: BP 162/77; TEMP 96.6
--- NOTE | 2019-04-23 16:43 | PRG ---
DATE OF SERVICE: SUBJECTIVE: Abelino Zaidi is going to rehab today. Says he is doing well. He has no complaints. OBJECTIVE: VITAL SIGNS: Heart rates in the 60s, blood pressure 132/69. He is afebrile. LUNGS: Clear. HEART: Regular rate and rhythm. ABDOMEN: Soft. IMPRESSION: 1. Status post coronary artery bypass grafting. 2. Status post mitral valve ring repair. 3. Systolic cardiomyopathy. 4. Chronic obstructive pulmonary disease. 5. Blood loss anemia. His hemoglobin two days ago was 10.2. His electrolytes today are normal. His creatinine is 0.97. I will be happy to see him the same day that Dr. Fletcher sees him. We will check a chest x-ray after he gets out of rehab. I have encouraged him to call me should he have problems. Job ID: [id number]
[2019-04-23] MEDS: BEER 1 CAN PO SCH (17:11)
--- NOTE | 2019-04-23 20:22 | DIS ---
DATE OF ADMISSION: 04/09/2019 DATE OF DISCHARGE: 04/23/2019 DISCHARGE DISPOSITION: Inpatient rehab. ALLERGIES: THE PATIENT IS ALLERGIC TO CODEINE. THE PATIENT WAS SEEN AND EXAMINED ON THE DAY OF DISCHARGE. PLEASE SEE MY PROGRESS NOTE FOR DETAILS. FOLLOWUP: The patient will follow up with Cardiology Dr. Fletcher, pulmonary Dr. Reddy, cardiovascular surgeon Dr. Navin Braswell as scheduled. DISCHARGE MEDICATIONS: 1. Aspirin 325 mg daily. 2. Amiodarone 400 mg twice a day. 3. Seroquel 50 mg at bedtime. 4. Lorazepam as needed. 5. Lipitor 20 mg at bedtime. 6. Carvedilol 3.125 mg b.i.d. 7. Digoxin 0.125 mg daily. 8. Lasix 40 mg daily. 9. Aldactone 12.5 mg daily. 10. Tramadol as needed. INPATIENT WIRE STITCHER: Cardiology Dr. Fletcher, cardiovascular Dr. Navin Braswell, critical care Dr. Reddy. INPATIENT PROCEDURES: On March,, the patient underwent transesophageal echocardiogram that showed findings consistent with severe mitral regurgitation, moderate tricuspid regurgitation. On 16 April 2019, the patient underwent mitral valve repair with #32 Moya annuloplasty band. He also underwent coronary artery bypass grafting x2, left internal mammary artery to mid LAD, and reverse saphenous vein to obtuse marginal 1. He also underwent epicardial Maze with ligation of the left atrial appendage. BRIEF HOSPITAL COURSE: The patient is a 74-year-old male with COPD, presented to the emergency room with shortness of breath. His workup was consistent with atrial fibrillation with rapid ventricular response. He was started on Cardizem drip along with digoxin. Amiodarone was added. Due to recent fall in his hemoglobin, anticoagulation was held. Cardiac catheterization was performed by Dr. Edu Fletcher on March,, that showed left main coronary artery disease with severely impaired ventricular function as well as severe mitral regurgitation. Echocardiogram showed ejection fraction of 25-30% with severe mitral regurgitation and [id number] tricuspid regurgitation. Transesophageal echocardiogram was done to confirm severe mitral regurgitation. He underwent coronary artery bypass grafting along with mitral valve annuloplasty by Dr. Navin Braswell. Left internal mammary lymph node biopsy was negative for malignancy. He was monitored in the intensive care unit. Repeat echocardiogram post CABG showed ejection fraction 25-30%. LifeVest has been arranged. He has converted to sinus rhythm. He had acute kidney injury with maximum creatinine of 1.89, that has resolved. His creatinine at discharge is 0.97. He has been cleared by consultants for discharge. FINAL DIAGNOSES: 1. Atrial fibrillation with rapid ventricular response on admission. The patient is currently in sinus rhythm. 2. Coronary artery disease requiring coronary artery bypass grafting. 3. Severe mitral regurgitation, status post mitral valve annuloplasty. 4. Acute systolic heart failure exacerbation. Ejection fraction 25-30%. LifeVest has been arranged. 5. [id number] tricuspid regurgitation. 6. Dyslipidemia. 7. Chronic obstructive pulmonary disease. 8. History of chronic hepatitis C, treated. 9. Codeine allergy. 10. Tobacco dependence. 11. Chronic alcoholism. 12. Hyperkalemia, resolved. 13. Hyponatremia. 14. Acute kidney injury, resolved. 15. Hypomagnesemia, corrected. 16. Type 2 myocardial infarction. 17. Abnormal LFTs probably secondary to passive hepatic congestion. 18. Bilateral pleural effusion. 19. Physical deconditioning. PLAN: Plan was discussed with the patient in detail. He stated understanding. Job ID: [id number]
== END 2019-04-23 17:30 | disposition home or self-care (01) | DRG 216 ==
LOC: ERS 10:32 → ERHOLD 14:38 → SCSEROBS 16:01 → 2NO 16:58 → CCU 04-16 07:20 → 2NO 04-20 09:08
PROVIDERS: ADMIT Internal Medicine; ATTEND Internal Medicine
PROC: 4A023N7 Measurement of Cardiac Sampling and Pressure, Left Heart, Percutaneous Approach (ICD-10-PCS; 2019-04-09)
PROC: B2111ZZ Fluoroscopy of Multiple Coronary Arteries using Low Osmolar Contrast (ICD-10-PCS; 2019-04-09)
PROC: B2151ZZ Fluoroscopy of Left Heart using Low Osmolar Contrast (ICD-10-PCS; 2019-04-09)
PROC: B24BZZ4 Ultrasonography of Heart with Aorta, Transesophageal (ICD-10-PCS; 2019-04-15)
PROC: 02UG0JZ Supplement Mitral Valve with Synthetic Substitute, Open Approach (ICD-10-PCS; principal; 2019-04-17)
PROC: 02100Z9 Bypass Coronary Artery, One Artery from Left Internal Mammary, Open Approach (ICD-10-PCS; 2019-04-17)
PROC: 021009W Bypass Coronary Artery, One Artery from Aorta with Autologous Venous Tissue, Open Approach (ICD-10-PCS; 2019-04-17)
PROC: 06BN4ZZ Excision of Left Femoral Vein, Percutaneous Endoscopic Approach (ICD-10-PCS; 2019-04-17)
PROC: 02580ZZ Destruction of Conduction Mechanism, Open Approach (ICD-10-PCS; 2019-04-17)
PROC: 02L70CK Occlusion of Left Atrial Appendage with Extraluminal Device, Open Approach (ICD-10-PCS; 2019-04-17)
PROC: 5A1221Z Performance of Cardiac Output, Continuous (ICD-10-PCS; 2019-04-17)
PROC: 02L70CK Occlusion of Left Atrial Appendage with Extraluminal Device, Open Approach (ICD-10-PCS; 2019-04-17)
DX: I48.91 Unspecified atrial fibrillation (principal); I50.23 Acute on chronic systolic (congestive) heart failure; J96.01 Acute respiratory failure with hypoxia; N17.9 Acute kidney failure, unspecified; E87.1 Hypo-osmolality and hyponatremia; J44.1 Chronic obstructive pulmonary disease with (acute) exacerbation; I34.0 Nonrheumatic mitral (valve) insufficiency; I42.9 Cardiomyopathy, unspecified; E87.5 Hyperkalemia; E83.42 Hypomagnesemia; B19.20 Unspecified viral hepatitis C without hepatic coma; F17.210 Nicotine dependence, cigarettes, uncomplicated; F41.9 Anxiety disorder, unspecified; F32.9 Major depressive disorder, single episode, unspecified; I25.10 Atherosclerotic heart disease of native coronary artery without angina pectoris; E78.5 Hyperlipidemia, unspecified; F10.20 Alcohol dependence, uncomplicated; Z98.890 Other specified postprocedural states; Z88.5 Allergy status to narcotic agent; Z79.899 Other long term (current) drug therapy
CPT/HCPCS: 36415; 36416; 36430; 71045; 71046; 80048; 80053; 80061; 80162; 81001; 82274; 82553; 82570; 82607; 82746; 82805; 83735; 83880; 84100; 84156; 84300; 84443; 84484; 84540; 85014; 85018; 85025; 85347; 85610; 85730; 86850; 86900; 86901; 88184; 88305; 88312; 93005; 93010; 93306; 93312; 93460; 93561; 93798; 94640; 96361; 96374; 96375; 99152; 99153; C1769; J0282; J0360; J0461; J0670; J0690; J1100; J1160; J1265; J1642; J1644; J1650; J1815; J1885; J1940; J2001; J2250; J2260; J2270; J2405; J2440; J2704; J2720; J2930; J3010; J3370; J3420; J3475; J3480; J3490; J7050; J7070; J7512; J7620; P9045; Q9967; S0017; S0028

== ENCOUNTER 2019-07-31 21:35 | Inpatient (IN) | payer MEDICARE, BC ==
--- NOTE | 2019-07-31 22:55 | PDOC.EVN ---
Event Note - Event Note Event Note: [id number] HP
[2019-07-31] MEDS ORDERED: Sodium Chloride 0.9% 1,000 ML IV SCH (23:00)
[2019-07-31] MEDS ORDERED: Ondansetron ODT 4 MG TAB SL PRN (23:43)
[2019-07-31] MEDS ORDERED: Ondansetron PF 4 MG/2 ML Vial IVP PRN (23:43)
[2019-07-31] MEDS ORDERED: Acetaminophen 325 MG TAB PO PRN (23:43)
[2019-08-01 00:23] LABS: Troponin I 0.051 ng/mL (< 0.028)
[2019-08-01] MEDS ORDERED: Sodium Chloride 0.9% 1,000 ML IV SCH (00:30)
--- NOTE | 2019-08-01 00:55 | HP ---
CHIEF COMPLAINT: Recurrent falls and weakness. HISTORY OF PRESENT ILLNESS: Mr. Zaidi is a 74-year-old male with past medical history of coronary artery disease, coronary artery bypass graft surgery, paroxysmal atrial fibrillation, hepatitis C, COPD, among others, presented to [facility] with recurrent falls and weakness. 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 Neurosurgeon is being consulted who advised to admit the patient under Medical Service. The patient was given one dose of IV dexamethasone 10 mg. The patient has been following the last few days with no obvious reason. He has multiple ecchymoses and skin injuries all over his body. Those falls have been unwitnessed. The patient only on aspirin. The patient is not on any anticoagulants. PAST MEDICAL HISTORY: 1. Coronary artery disease. 2. Hepatitis C. 3. COPD. 4. Paroxysmal atrial fibrillation. PAST SURGICAL HISTORY: 1. Coronary artery bypass graft surgery. 2. Plastics to ear. 3. Face in 1987 from an accident. SOCIAL HISTORY: Former smoker. Denies drug use. He drinks beer about 6 to 8 cans daily. FAMILY HISTORY: Reviewed and noncontributory. HOME MEDICATIONS: Please see home medications reconciliation form for updated medications. ALLERGIES: ALLERGIC TO CODEINE AND IODIDE. REVIEW OF SYSTEMS: Review of 14 systems negative except what is mentioned in the history of present illness. PHYSICAL EXAMINATION: GENERAL: The patient is awake, alert, and oriented, with multiple ecchymoses and bruising all over his body. NECK: Supple. CHEST: Fair bilateral air entry. HEART: S1, S2 regular. ABDOMEN: Soft, nontender. Bowel sounds present. NEUROLOGIC: Awake, alert, oriented. No focal findings. PSYCHIATRIC: Normal mood. EXTREMITIES: No clubbing or cyanosis. SKIN: Bruising and ecchymosis all over his body from recurrent falls. DIAGNOSTIC DATA: CT of the brain as mentioned above in the history of present illness. LABS: Sodium 136, potassium 4.4, BUN is 26, creatinine is 2.27. Troponin 0.04. WBC count is 9.8, hemoglobin 11.9, platelets 183. ASSESSMENT AND PLAN: 1. Left temporal mass. 2. Recurrent falls. 3. Chronic kidney disease. 4. Coronary artery disease. 5. History of coronary artery bypass graft surgery. 6. Paroxysmal atrial fibrillation. 7. Hepatitis C. PLAN: 1. Admit. 2. Tele monitoring. 3. Frequent neuro checks. 4. MRI of the brain. 5. Neurosurgeon consulted for evaluation and further management. 6. Continue with IV dexamethasone. 7. Reconcile home medications. 8. DVT prophylaxis, SCDs. 9. Expected length of stay, 2 midnights or more. Job ID: [id number]
[2019-08-01] MEDS: Dexamethasone 4 mg/ml Vial SLOW IVP SCH ×5 (01:46→23:38)
--- NOTE | 2019-08-01 03:41 | CON ---
DATE OF CONSULTATION: HISTORY OF PRESENT ILLNESS: Mr. Zaidi is a 74-year-old male who was transferred to our emergency department from [place] for altered mental status. The patient's son is one of our ICU nurses, states that his last normal was Friday when he last visited. The patient lives alone. When he stopped by today, the patient was altered. There were multiple abrasions in different states of healing. Son suspected that the patient was down for some length of time. The patient does use alcohol regularly; however, Neurosurgery was consulted due to a new left temporal mass with vasogenic edema. The patient is alert and oriented x2. He is aware of who he is and where he is, but there is some confusion and slow with answering, but he denies any pain. No numbness or tingling. No dizziness. He states that he does get confused and it is hard to find some words at times. His pupils are equal, round, and reactive to light. His ocular movements are intact. Cranial nerves, I do not see any deficits. Extremities range of motion is normal. Strength is normal bilaterally. There is no drift. REVIEW OF SYSTEMS: A 10-point review of systems has been completed and is negative other than stated above in the HPI. PAST MEDICAL HISTORY: COPD and hepatitis C, treated approximately 2007 with 1 year of medication. SURGICAL HISTORY: Coronary artery bypass graft surgery, plastic surgery to ear and face in 1987 from an accident. PSYCHIATRIC HISTORY: Depression. SOCIAL HISTORY: The patient drinks socially. Drinks beer daily, 4-5 a day. Denies drug use. He is currently a tobacco user. Reports that he smoked for approximately 30 years and states that he is trying to quit. He lives alone. ALLERGIES: CODEINE, IODINE. CURRENT MEDICATIONS: 1. ProAir. 2. Digoxin. 3. Furosemide. 4. Amiodarone. 5. Atorvastatin. 6. Aspirin. PHYSICAL EXAMINATION: VITAL SIGNS: Heart rate 58, respirations 16, temperature 98.2, O2 saturations 95% on room air, blood pressure 155/84. CONSTITUTIONAL: The patient is awake. He is alert x2. He is afebrile. He is slightly hypertensive. He appears nontoxic. He is pain-free. HEENT: Head is normocephalic. He does have a lesion on his chin and an abrasion over the right eyebrow. Pupils are equal, round, and reactive to light. Extraocular movements are intact. Hearing is intact. Moist mucous membranes. RESPIRATIONS: Normal work of breathing on room air. Symmetric chest rise. EXTREMITIES: 5/5 bilateral strength in deltoids, biceps, triceps, hydrologic modeler strength, hip flexion, hip extension, knee flexion, knee extension, dorsiflexion, and plantar flexion. He does have multiple abrasions in bilateral knees right greater than left. There is some ecchymosis in different states of healing. He also has some on his arms. NEUROLOGIC: The patient is awake, alert, and oriented x2. He does have some confusion, but answers questions appropriately, can be slow at times. Cranial nerves 2 through 12 are tested and intact. I did not see any lateralizing sensory or motor deficits. He has some confusion. There is no pronator drift or neglect. IMAGING DATA: CT brain done in [place] indicates a left temporal lobe mass with associated vasogenic edema. There is some hyperdensity, which could be possible hemorrhage versus edema. Recommending MRI followup. ASSESSMENT AND PLAN: Mr. 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 The hospitalist department is admitting him. We are getting a CT chest, abdomen, and pelvis and MRI of the brain with and without contrast, [facility]. We will consult Oncology. We have started Decadron 4 mg q.6. If there are any further questions, please contact Neurosurgery. Job ID: [id number]
[2019-08-01 05:11] VITALS: BMI 18.2
[2019-08-01 06:57] LABS: Bacteria/HPF None Seen HPF (None Seen); Bilirubin Negative (Negative); Blood, Urine Negative (Negative); Clarity Clear (Clear); Glucose, Urine (Dipstick) 200 mg/dL (Negative); Leukocyte Negative Leu/uL (Negative); Nitrite Negative (Negative); Protein, Urine (Dipstick) 30 mg/dL (Neg-Trace); RBC/HPF 0-3 HPF (0-3); Squamous Epithelial 0-3 HPF (0-3); Urobilinogen Normal mg/dL (Less than 2); WBC/HPF 0-3 HPF (0-3)
[2019-08-01 06:59] LABS: Urine Culture Reflex No No
--- NOTE | 2019-08-01 08:43 | PRG ---
DATE OF SERVICE: 08/01/2019 I personally examined the patient, reviewed records and imaging and agreed with documentation of Lillie Kramer PA-C, dated 07/31/2019. Briefly, Abelino Zaidi, father of Abelino Del Rosario in our ICU, is a 74-year-old gentleman who comes in with memory difficulty. He cannot tell me when his short-term memory started being affected, but he knows that for a while he has been having difficulty with it. In our emergency department yesterday, a CT examination of the brain suggested some abnormal tissue in the temporal horn of the lateral ventricle on the left side. An MR image was done without contrast. Overnight, Mr. Zaidi has been on our stroke unit floor. His vital sign chart does not show that he had any fever. His blood pressure has been relatively normal. On examination this morning, there is very poor short-term memory, but his language function seems intact. There is no obvious cranial neuropathy. There is no lateralized motor or sensory deficits. The MR images suggest that there is some ferromagnetic material in the hippocampus and at the temporal horn of the lateral ventricle. This could be heme from a hemorrhage or melanin from a melanoma. Either of these could be dark on gradient echo. Differentiating the two, may require a biopsy. The other notable finding on his MRI scan is ventriculomegaly with some T2 signal change at the anterior and occipital poles of the ventricles suggestive of some amount of hydrocephalus. Given the constellation of findings, I am going to have a conversation with his son. One possible plan will be to proceed with endoscopic biopsy of the lesion. We can remove some of the intraventricular mass and send it histopathology to see if it represents tumor. If it is a benign hemorrhage, we can follow up with serial scans overtime. Advantage of endoscopic procedures that we can leave an external ventricular drain and measure is intraventricular pressure. If it seems he does better with drainage, then a shunt can be placed thereafter. I will speak with his son today on the phone and we can make a treatment plan. Job ID: [id number]
[2019-08-01] MEDS ORDERED: Dexamethasone 10 MG in Sodium Chloride 0.9% 50 ML IVPB SCH (09:00)
--- NOTE | 2019-08-01 09:08 | MRI ---
PRELIMINARY REPORT/[facility]/EMERGENCY AFTER HOURS PROCEDURE PROCEDURE INFORMATION: Exam: MR Head Without Contrast Exam date and time: 08/01/2019 1:06 AM Clinical history: 74 years old, male; Condition or disease; Brain tumor; Neoplasm of brain, not specified; Patient HX: Patient is a transfer patient from other facility, evaluate brain mass seen on CT. Patient slightly confused and generalized weakness. ; Additional info: Non-contrast exam. Creat 2.27 and gfr 29, informed nurse and michelle wilson regarding contrast. TECHNIQUE: Imaging protocol: MR of the head without contrast. COMPARISON: No relevant prior studies available. FINDINGS: Brain: 3.2 x 2.0 intra-axial mass, medial, inferior left temporal lobe with moderate surrounding vasogenic edema. Mass is of intermediate to decreased signal on all pulse sequences, likely, likely reflecting a degree of calcification. There is "blooming" on gradient echo sequence which can be related to calcification. Please correlate with recent CT which was performed at outside institution. No midline shift. Moderate parenchymal volume loss and chronic white matter disease. Ventricles: Moderate ventriculomegaly, likely chronic. Bones/joints: Unremarkable. Soft tissues: Unremarkable. Sinuses: Normal as visualized. No acute sinusitis. Mastoid air cells: Normal as visualized. No mastoid effusion. Orbits: Unremarkable. IMPRESSION: Left temporal mass as described with surrounding edema but no midline shift. Differential considerations to include metastatic disease vs less likely primary COMMUNICATIONS MANAGER neoplasm. Moderate parenchymal volume loss and chronic white matter disease. Moderate ventriculomegaly, likely chronic. Please correlate with recent CT which was performed at outside institution Thank you for allowing us to participate in the care of your patient. Dictated and Authenticated by: Cayden Palomino MD 08/01/2019 1:51 AM Central Time ([place] & [place]) FINAL REPORT BY DR. CEJA EMERGENCY AFTER HOURS STUDY MRI BRAIN NONCONTRAST: DATE: 08/01/2019 1:18 AM HISTORY: 74-year-old male with brain mass and edema found on noncontrast CT of 07/31/2019. No contrast given be cause of high serum creatinine, low GFR. COMPARISON: No prior brain MRIs. FINDINGS: There is an approximately 3 x 1.5 cm very irregularly-shaped lesion at the medial and posterior media l aspect of the left temporal lobe, which is T1 isointense to brain parenchyma, T2 hypointense, and has moderate magnetic susceptibility artifact blooming on gradient echo sequence indicating hemorrhag ic contents. This is surrounded by a moderately large region of brain parenchymal edema in the left medial and posterior medial temporal lobe that extends posteriorly to the left occipital lobe. A thin strip of periventricular edema is located along the anterior to the body and trigone of the left lateral ventricle. All of the areas of edema have significantly restricted diffusion, raising the pos sibility that this could represent cytotoxic edema of an acute infarction rather than vasogenic edema. There is a smaller focus of intra-axial hemorrhage at the left posterior medial temporal lobe posterior to the hematoma mentioned above. There is a small strip of cortical hemorrhage at the posterior medial left temporo-occipital junction. Ventricles are mildly to moderately dilated due to central brain parenchymal atrophy. No mass effect or midline shift. Moderate chronic ischemic white matter changes. No extra-axial fluid collection. The preliminary report by [facility] does no t mention the restricted diffusion and possibility of acute infarction. No major disagreement with preliminary report by [facility]. IMPRESSION: 1) Intra-axial edema in the left mesial temporal lobe extending into posterior medial temporal lobe a nd left occipital lobe. This could represent cytotoxic edema of an acute infarction (it has extensive restricted diffusion). 2) Three separate foci of intra-axial hemorrhage in the left posterior medial temporal lobe and tempo ral occipital junction. 3) Without IV gadolinium based contrast agent, it is uncertain whether or not these hemorrhages repre sent hemorrhagic malignant tumors, either metastatic or primary, or represent hemorrhagic conversion of acute ischemic infarction. Recommend follow-up. Transcribed Date/Time: 08/01/2019 9:56 AM
[2019-08-01 09:13] LABS: ALT (SGPT) Less than 7 U/L (8-55); AST (SGOT) 21 U/L (5-34); Alkaline Phosphatase 69 U/L (40-110); Anion Gap 14 mmol/L (10-20); BUN (Urea Nitrogen) 38 mg/dL (8.4-25.7); Bilirubin, Total 0.6 mg/dL (0.2-1.2); CK (CPK) 179 U/L (30-200); Calc. Creatinine Clearance 24 mL/min (70-130); Calcium 9.1 mg/dL (7.8-10.44); Carbon Dioxide 22 mmol/L (23-31); Chloride 105 mmol/L (98-107); Estimated GFR-MDRD 29; Glucose 136 mg/dL (83-110); Potassium 5.1 mmol/L (3.5-5.1); Sodium 136 mmol/L (136-145)
[2019-08-01 09:16] LABS: Troponin I 0.018 ng/mL (< 0.028)
--- NOTE | 2019-08-01 09:30 | CT ---
PRELIMINARY REPORT/[facility]/EMERGENCY AFTER HOURS PROCEDURE PROCEDURE INFORMATION: Exam: CT Chest Without Contrast Exam date and time: 08/01/2019 1:22 AM Clinical history: 74 years old, male; Injury or trauma; Fall; Initial encounter; Generalized; Blunt trauma (contusions or hematomas); Patient HX: PT. Fell x 2 days prior, C/O back pain. Poor historian; Additional info: Non-contrast exam. Creat 2.27 and gfr 29, informed nurse and michelle wilson regarding contrast. TECHNIQUE: Imaging protocol: Computed tomography of the chest without contrast. COMPARISON: No relevant prior studies available. FINDINGS: Lungs: There are emphysematous changes. Pleural space: No pneumothorax. No pleural effusion. Heart: There are atheromatous calcifications of the aorta and coronary vasculature. Aorta: Unremarkable. No aortic aneurysm. Lymph nodes: Unremarkable. No enlarged lymph nodes. Bones/joints: There are median sternotomy changes. Chronic degenerative spinal changes without acute fracture or dislocation. Soft tissues: Unremarkable. IMPRESSION: No acute post-traumatic changes within limits of noncontrasted exam. Atheromatous disease. Emphysema. PROCEDURE INFORMATION: Exam: CT Abdomen And Pelvis Without Contrast Exam date and time: 08/01/2019 1:22 AM Clinical history: 74 years old, male; Injury or trauma; Fall; Initial encounter; Generalized; Blunt trauma (contusions or hematomas); Patient HX: PT. Fell x 2 days prior, C/O back pain. Poor historian; Additional info: Non-contrast exam. Creat 2.27 and gfr 29, informed nurse and michelle wilson regarding contrast. TECHNIQUE: Imaging protocol: Computed tomography of the abdomen and pelvis without contrast. COMPARISON: No relevant prior studies available. FINDINGS: Liver: No solid mass. Gallbladder and bile ducts: No calcified stones. No ductal dilation. Pancreas: No acute pathology. No ductal dilation. Spleen: No solid mass. No splenomegaly. Adrenals: No mass. Kidneys and ureters: No solid mass. No hydronephrosis. Stomach and bowel: There is dense colonic fecal retention. No mechanical obstruction. Appendix: No evidence of appendicitis. Intraperitoneal space: No free air. Vasculature: There are atheromatous changes of the abdominal aorta without aneurysm. Lymph nodes: No enlarged lymph nodes. Bladder: Unremarkable as visualized. Reproductive: Unremarkable as visualized. Bones/joints: Chronic degenerative spinal changes without acute fracture or dislocation. Serpiginous sclerotic foci bilateral femoral heads consistent with AVN. No femoral head collapse. Soft tissues: Unremarkable. IMPRESSION: No acute post-traumatic changes within limits of noncontrasted exam. Serpiginous sclerotic foci bilateral femoral heads consistent with AVN. No femoral head collapse. Thank you for allowing us to participate in the care of your patient. Dictated and Authenticated by: Cayden Palomino MD 08/01/2019 2:08 AM Central Time ([place] & [place]) FINAL REPORT BY DR. CEJA EMERGENCY AFTER HOURS STUDY CT CHEST NONCONTRAST CT ABDOMEN NONCONTRAST CT PELVIS NONCONTRAST: HISTORY: 74-year-old male status post acute trauma to chest, abdomen, and pelvis from fall. Intracranial lesio ns. Evaluate for primary neoplasm source. FINDINGS: Agree with preliminary report by [facility]. IMPRESSION: 1. A very small amount of free fluid within the pelvic cavity. The source is not apparent. 2. Study limited by lack of IV contrast. 3. No evidence of acute traumatic injury other than potentially the very small amount of free fluid i n the pelvis. 4. No neoplastic tumor mass identified. Transcribed Date/Time: 08/01/2019 10:01 AM
--- NOTE | 2019-08-01 10:09 | PDOC.HOSPP ---
- Subjective Encounter Date: 08/01/19 Encounter Time: 09:06 Subjective: 74 y/o male with CAD s/p recent CABG, mitral regurgitation s/p recent repair, PAF and others admitted with recurrent falls, weakness and memory lapses. CT showed left temporal mass which was confirmed by MRI.No new problem. - Objective Vital Signs & Weight: Vital Signs (12 hours) Temp Pulse Resp BP Pulse Ox 08/01/19 08:00 98.3 F 78 16 138/69 100 08/01/19 00:00 97.6 F 57 L 16 134/64 98 07/31/19 23:40 97 07/31/19 23:35 97.5 F L 71 18 129/57 L 97 Weight Weight 127 lb Result Diagrams: 08/01/19 08:46 Hospitalist ROS - Medication Medications: Active Medications Generic Name Dose Route Start Last Admin Trade Name Freq PRN Reason Stop Dose Admin Dexamethasone 4 mg 07/31/19 23:59 08/01/19 05:39 Decadron SLOW IVP 4 mg Q6HR JUNAID Administration - Exam General Appearance: awake alert Eye: anicteric sclera ENT - other findings: right lateral periorbital dressing and healing jaw laceration noted Neck: supple Heart: RRR, murmur present Respiratory: CTAB, no wheezes, no ronchi, normal chest expansion Gastrointestinal: soft, non-tender, non-distended Extremities: no cyanosis, no edema Skin - other findings: scattered bruises at various stages or resolution. Neurological: cranial nerve grossly intact Musculoskeletal: generalized weakness Psychiatric: A&O x 3 Hosp A/P (1) Mass of left temporal lobe Code(s): G93.89 - OTHER SPECIFIED DISORDERS OF BRAIN Status: Acute (2) JAREN (acute kidney injury) Code(s): N17.9 - ACUTE KIDNEY FAILURE, UNSPECIFIED Status: Acute (3) Elevated troponin Code(s): R79.89 - OTHER SPECIFIED ABNORMAL FINDINGS OF BLOOD CHEMISTRY Status : Acute (4) CAD (coronary artery disease) Code(s): I25.10 - ATHSCL HEART DISEASE OF [place] CORONARY ARTERY W/O ANG PCTRS Status: Acute (5) Cardiomyopathy Code(s): I42.9 - CARDIOMYOPATHY, UNSPECIFIED Status: Acute Qualifiers: Cardiomyopathy type: unspecified Qualified Code(s): I42.9 - Cardiomyopathy , unspecified (6) Mitral insufficiency Status: Acute (7) S/P CABG (coronary artery bypass graft) Code(s): Z95.1 - PRESENCE OF AORTOCORONARY BYPASS GRAFT Status: Acute (8) COPD (chronic obstructive pulmonary disease) Status: Chronic - Plan increase IVF to 125 for 8 given contrast study in the face of CKD. Patient also has cardiomyopathy Continue dexamethazone and neurochecks, PT/OT eval and treat. Avoid further nephrotoxic agent exposure. Restart amiodarone and digoxin Hold diuretic.
[2019-08-01 10:23] LABS: Cocaine Metabolite Screen Not Detected (NotDetected); Medtox Reader # READER 4; Methamphetamine Not Detected (NotDetected); Opiate Screen Not Detected (NotDetected); Phencyclidine (PCP) Not Detected (NotDetected); THC/Cannabinoid Screen Not Detected (NotDetected)
[2019-08-01 10:24] LABS: Amphetamine Not Detected (NotDetected); Barbiturates Screen Not Detected (NotDetected); Benzodiazepine Screen Not Detected (NotDetected); Medtox Control Line Valid? VALID (VALID); Methadone Not Detected (NotDetected); Oxycodone Screen Not Detected (NotDetected); Tricyclic Screen Not Detected (NotDetected)
[2019-08-01 10:30] LABS: Creatinine, Urine 220.4 mg/dL (63-166)
--- NOTE | 2019-08-01 13:11 | MRI ---
MRI BRAIN WITH CONTRAST: DATE: 08/01/2019 HISTORY: 74-year-old male with hemorrhagic lesions in the left mesial and posterior medial temporal lobe. TECHNIQUE: IV injection of half dose of MultiHance gadolinium-based contrast agent. T1 MP rage images and axial, coronal and sagittal planes. FINDINGS: There is no abnormal intra-axial enhancement, in particular with regard to the focal intra-axial hemo rrhages in the left mesial and posterior medial temporal lobe. See separate report of the noncontrast MRI earlier today. IMPRESSION: 1. No abnormal intra-axial enhancement. 2. Evidence for large acute infarction in left posterior cerebral artery territory. 3. Regarding the 3 separate foci of hemorrhage within the cytotoxic edema, they are slightly favored to represent acute hemorrhagic conversion of the acute infarction. The possibility that they could represent hemorrhagic neoplasm is now significantly less likely, but not completely excluded. Recomme nd serial follow-up MRIs of the brain with and without contrast, beginning in one month.
[2019-08-01] MEDS: Sodium Chloride 0.9% 1,000 ML IV SCH ×3 (13:26→23:38)
[2019-08-02] MEDS: Dexamethasone 4 mg/ml Vial SLOW IVP SCH ×3 (05:53→17:51)
[2019-08-02 08:07] LABS: #Lymphocytes 0.5 thou/uL (1.20-3.40); #Monocytes 0.4 thou/uL (0.11-0.59); #Neutrophils 15.9 thou/uL (1.40-6.50); %Eosinophils 0.1 % (0.0-10.0); %Lymphocytes 2.9 % (21.0-51.0); %Monocytes 2.5 % (0.0-10.0); %Neutrophils 94.5 % (42.0-75.0); Hemoglobin 11.4 g/dL (14.0-18.0); Mean Corpuscular HGB CONC 34.1 g/dL (32.0-36.0); Mean Corpuscular Volume 99.8 fL (78.0-98.0); Mean Platelet Volume 7.6 fL (7.4-10.4); Platelet Count 158 thou/uL (130-400); RBC Distribution Width 14.6 % (11.5-14.5); Red Blood Cell (RBC) Count 3.34 mill/uL (4.70-6.10); White Blood Cell (WBC) Count 16.8 thou/uL (4.8-10.8)
[2019-08-02] MEDS: Amiodarone 200 MG TAB PO SCH (08:58)
[2019-08-02] MEDS: Digoxin 0.125 MG TAB PO SCH (09:00)
[2019-08-02] MEDS: Sodium Chloride 0.9% 1,000 ML IV SCH ×2 (09:00→17:51)
--- NOTE | 2019-08-02 09:58 | PRG ---
DATE OF SERVICE: 08/02/2019 I saw Abelino Zaidi in his hospital room this morning. The contrast scan was done. I have reviewed the contrast images, which did not seem to show significant tissue contrast anywhere. I reviewed the noncontrast study as well. I tend to agree with Radiology that there is a good chance that there was a CATECHIST infarct involving the hippocampus in the inferior occipital lobe and fusiform gyrus. There could have been some hemorrhagic conversion of the infarct with some intraventricular hemorrhage. Therefore, I do not recommend a biopsy, and I think we should follow up with another CT scan later in the week. We will see if the blood products are resolving. Overnight, Mr. Zaidi has done well. His vitals are stable. Neurological examination is unchanged. The plan is to initiate the stroke protocol. We will follow up with imaging later in the week and then through the 4 weeks thereafter in clinic. A followup MRI scan should be done 2 months down the round, and I believe we can do this without contrast. Job ID: [id number] MTDD
[2019-08-02 11:43] LABS: Albumin 3.7 g/dL (3.4-4.8); Anion Gap 12 mmol/L (10-20); BUN (Urea Nitrogen) 39 mg/dL (8.4-25.7); BUN/Creatinine Ratio 23.64; Calc. Creatinine Clearance 33 mL/min (70-130); Carbon Dioxide 22 mmol/L (23-31); Chloride 110 mmol/L (98-107); Estimated GFR-MDRD 41; Glucose 171 mg/dL (83-110); Phosphorus 3.1 mg/dL (2.3-4.7); Potassium 4.4 mmol/L (3.5-5.1); Sodium 140 mmol/L (136-145)
--- NOTE | 2019-08-02 15:44 | PDOC.HOSPP ---
- Subjective Encounter Date: 08/02/19 Encounter Time: 10:42 Subjective: 74 y/o male with CAD s/p recent CABG, mitral regurgitation s/p recent repair, PAF and others admitted with recurrent falls, weakness and memory lapses. CT showed left temporal mass which was confirmed by MRI. However repeat MRI with contrast showed large infarction involving the left posterior cerebral artery. No new problem. Denied nausea, vomiting or abdominal pain. Oral intake remained suboptimal. - Objective Vital Signs & Weight: Vital Signs (12 hours) Temp Pulse Resp BP Pulse Ox 08/02/19 12:26 97.5 F L 54 L 16 131/65 97 08/02/19 09:00 54 L 08/02/19 08:00 98 08/02/19 07:53 97.4 F L 54 L 17 181/82 H 98 08/02/19 04:00 97.7 F 54 L 16 165/82 H 99 Weight Admit Weight 127 lb Weight 127 lb I&O: 08/01/19 08/02/19 08/03/19 06:59 06:59 06:59 Intake Total 651 Balance 651 Result Diagrams: 08/02/19 07:57 08/02/19 11:19 Hospitalist ROS - Medication Medications: Active Medications Generic Name Dose Route Start Last Admin Trade Name Freq PRN Reason Stop Dose Admin Amiodarone HCl 200 mg 08/02/19 09:00 08/02/19 08:58 Cordarone PO 200 mg DAILY JUNAID Administration Dexamethasone 4 mg 07/31/19 23:59 08/02/19 13:30 Decadron SLOW IVP 4 mg Q6HR JUNAID Administration Digoxin 0.125 mg 08/02/19 09:00 08/02/19 09:00 Lanoxin PO Not Given DAILY JUNAID Sodium Chloride 1,000 mls @ 125 mls/hr 08/01/19 07:18 08/02/19 09:00 Normal Saline 0.9% IV 1,000 mls .Q8H JUNAID Administration - Exam General Appearance: awake alert Eye: anicteric sclera ENT - other findings: right periobital and left forehead bruise noted Neck: symmetric, no JVD Heart: RRR Respiratory: no wheezes, no rales, no ronchi, normal chest expansion Gastrointestinal: soft, non-tender, non-distended Extremities: no cyanosis, no edema Neurological: cranial nerve grossly intact, no focal deficits Psychiatric: A&O x 3 Hosp A/P (1) Acute cerebrovascular accident (CVA) Code(s): I63.9 - CEREBRAL INFARCTION, UNSPECIFIED Status: Acute (2) Mass of left temporal lobe Code(s): G93.89 - OTHER SPECIFIED DISORDERS OF BRAIN Status: Ruled-out (3) JAREN (acute kidney injury) Code(s): N17.9 - ACUTE KIDNEY FAILURE, UNSPECIFIED Status: Acute (4) Elevated troponin Code(s): R79.89 - OTHER SPECIFIED ABNORMAL FINDINGS OF BLOOD CHEMISTRY Status : Acute (5) CAD (coronary artery disease) Code(s): I25.10 - ATHSCL HEART DISEASE OF [place] CORONARY ARTERY W/O ANG PCTRS Status: Acute (6) Cardiomyopathy Code(s): I42.9 - CARDIOMYOPATHY, UNSPECIFIED Status: Acute Qualifiers: Cardiomyopathy type: unspecified Qualified Code(s): I42.9 - Cardiomyopathy , unspecified (7) Mitral insufficiency Status: Acute (8) S/P CABG (coronary artery bypass graft) Code(s): Z95.1 - PRESENCE OF AORTOCORONARY BYPASS GRAFT Status: Acute (9) COPD (chronic obstructive pulmonary disease) Status: Chronic (10) Paroxysmal atrial fibrillation Code(s): I48.0 - PAROXYSMAL ATRIAL FIBRILLATION Status: Acute - Plan Start stroke protocol. Avoid anticoagulation due to hemorrhagic conversion. Continue IVF. Monitor closely to avoid fluid overload Continue neurochecks. Consult Neurology. get carotid dopplers and echo PT/OT eval and treat. Avoid further nephrotoxic agent exposure. Continue amiodarone and digoxin. Start oral supplementation.
[2019-08-02] MEDS ORDERED: Aspirin Chewable 81 MG TAB PO SCH (16:30)
--- NOTE | 2019-08-02 16:41 | ULT ---
Ultrasound Doppler duplex carotid: DATE: 08/02/2019 HISTORY: 74-year-old male with acute CVA in left posterior cerebral artery territory. TECHNIQUE: Grayscale, color-flow, and spectral analysis, of major arteries of neck. FINDINGS: There is moderate calcified atheromatous plaque in the bilateral proximal internal carotid arteries, including their origins at carotid bulbs. On the left, this causes strongly shadowing, obscuring the origin of the left internal carotid. Highest peak systolic velocities in the internal carotid arteries: Right: 60 cm/s. Left: 80 cm/s. ICA/CCA ratios: Right: 0.9 Left: 0.9 Vertebral artery flow is antegrade bilaterally. IMPRESSION: 1. Atherosclerotic disease of bilateral proximal internal carotids, with moderate plaque at their lorri gins, left greater than right. 2. No evidence of hemodynamically significant stenosis by velocities.
[2019-08-02] MEDS ORDERED: Lorazepam 0.5 MG TAB PO SCH (22:15)
[2019-08-03] MEDS: Dexamethasone 4 mg/ml Vial SLOW IVP SCH ×5 (00:51→23:55)
[2019-08-03] MEDS: Sodium Chloride 0.9% 1,000 ML IV SCH (03:21)
[2019-08-03 05:46] LABS: #Lymphocytes 0.4 thou/uL (1.20-3.40); #Monocytes 0.3 thou/uL (0.11-0.59); #Neutrophils 13.3 thou/uL (1.40-6.50); %Eosinophils 0.1 % (0.0-10.0); %Lymphocytes 2.6 % (21.0-51.0); %Monocytes 2.1 % (0.0-10.0); %Neutrophils 95.1 % (42.0-75.0); Hemoglobin 10.5 g/dL (14.0-18.0); Mean Corpuscular HGB CONC 33.9 g/dL (32.0-36.0); Mean Corpuscular Hemoglobin 33.4 pg (27.0-31.0); Mean Corpuscular Volume 98.7 fL (78.0-98.0); Mean Platelet Volume 7.5 fL (7.4-10.4); Platelet Count 151 thou/uL (130-400); RBC Distribution Width 14.5 % (11.5-14.5); Red Blood Cell (RBC) Count 3.13 mill/uL (4.70-6.10); White Blood Cell (WBC) Count 13.9 thou/uL (4.8-10.8)
[2019-08-03 06:20] LABS: Albumin 3.4 g/dL (3.4-4.8); Anion Gap 11 mmol/L (10-20); BUN (Urea Nitrogen) 38 mg/dL (8.4-25.7); BUN/Creatinine Ratio 26.03; Calc. Creatinine Clearance 37 mL/min (70-130); Calcium 8.2 mg/dL (7.8-10.44); Carbon Dioxide 22 mmol/L (23-31); Cardiac Risk 2.4 (Less than 4.5); Chloride 112 mmol/L (98-107); Cholesterol 133 mg/dl (< 200 Desired); Estimated GFR-MDRD 47; Glucose 121 mg/dL (83-110); HDL Cholesterol 56 mg/dL (>60 Neg Risk); LDL Cholesterol, Calculated 65 mg/dL; Phosphorus 3.1 mg/dL (2.3-4.7); Potassium 4.5 mmol/L (3.5-5.1); Sodium 140 mmol/L (136-145); Triglycerides 62 mg/dL (Less than 150)
--- NOTE | 2019-08-03 06:55 | PRG ---
DATE OF SERVICE: 08/03/2019 I saw Abelino Zaidi in his hospital room this morning. He tells me he was ordering some chickens yesterday and asked why I did not call before I visited him this morning so he could be more prepared for my visit. Obviously, he is disoriented but conversant. I have checked his vitals and they are stable. Short-term memory is almost non-existent and he is disoriented. However, all of his extremities are moving well. He has a bit of right superior quadrantanopsia. I spoke with Gene Del Rosario, Mr. Zaidi's son, yesterday. We are going to follow up with another CT scan on or Friday of this week to ensure that any blood products within the temporal horn of the lateral ventricle are dissipating. We will treat this as a stroke, but he will need a followup MRI scan in 2-3 months. He will need follow up CT scan in our office in about 3-4 weeks. I strongly feel that he is unsafe for discharge home. Short-term memory issues can be quite a safety issue and we should look into arrangements where he has a safe place to live. Job ID: [id number] [facility]
[2019-08-03] MEDS: Aspirin Chewable 81 MG TAB PO SCH (08:48)
[2019-08-03] MEDS: Amiodarone 200 MG TAB PO SCH (08:48)
[2019-08-03] MEDS: Digoxin 0.125 MG TAB PO SCH (08:51)
--- NOTE | 2019-08-03 13:11 | PDOC.HOSPP ---
- Subjective Encounter Date: 08/03/19 Encounter Time: 09:09 Subjective: 74 y/o male with CAD s/p recent CABG, mitral regurgitation s/p recent repair, PAF and others admitted with recurrent falls, weakness and memory lapses. CT showed left temporal mass which was confirmed by MRI. However repeat MRI with contrast showed large infarction involving the left posterior cerebral artery. No new problem. Denied nausea, vomiting or abdominal pain. Oral intake is improving. - Objective Vital Signs & Weight: Vital Signs (12 hours) Temp Pulse Pulse Pulse Resp BP BP 08/03/19 12:00 150/75 H 08/03/19 11:48 98.2 F 52 L 18 08/03/19 09:09 62 60 155/72 H 08/03/19 08:51 54 L 08/03/19 08:00 98.3 F 54 L 16 170/77 H 08/03/19 04:00 154/80 H 08/03/19 03:29 97.5 F L 56 L 16 BP BP Pulse Ox 08/03/19 12:00 08/03/19 11:48 150/75 H 97 08/03/19 09:09 159/78 H 08/03/19 08:51 08/03/19 08:00 170/77 H 98 08/03/19 04:00 97 08/03/19 03:29 154/80 H 97 Weight Admit Weight 127 lb Weight 127 lb I&O: 08/02/19 08/03/19 08/04/19 06:59 06:59 06:59 Intake Total 651 328 Output Total 125 Balance 651 203 Result Diagrams: 08/03/19 05:29 08/03/19 05:29 Hospitalist ROS - Medication Medications: Active Medications Generic Name Dose Route Start Last Admin Trade Name Freq PRN Reason Stop Dose Admin Amiodarone HCl 200 mg 08/02/19 09:00 08/03/19 08:48 Cordarone PO 200 mg DAILY JUNAID Administration Aspirin 81 mg 08/03/19 09:00 08/03/19 08:48 Aspirin Chewable PO 81 mg DAILY JUNAID Administration Dexamethasone 4 mg 07/31/19 23:59 08/03/19 06:26 Decadron SLOW IVP 4 mg Q6HR JUNAID Administration Digoxin 0.125 mg 08/02/19 09:00 08/03/19 08:51 Lanoxin PO Not Given DAILY JUNAID - Exam General Appearance: awake alert General - other findings: cachetic Eye: anicteric sclera ENT: normocephalic atraumatic, moist mucosa ENT - other findings: Right superolateral periobital dressing noted Heart: RRR Respiratory: no wheezes, no rales, no ronchi, normal chest expansion, no tachypnea Gastrointestinal: soft, non-tender, non-distended, normal bowel sounds Extremities: no cyanosis, no edema Skin - other findings: scattered abrasion /bruises noted Neurological: cranial nerve grossly intact, no focal deficits Neurological - other findings: memeory lapses noted Hosp A/P (1) Acute cerebrovascular accident (CVA) Code(s): I63.9 - CEREBRAL INFARCTION, UNSPECIFIED Status: Acute (2) Mass of left temporal lobe Code(s): G93.89 - OTHER SPECIFIED DISORDERS OF BRAIN Status: Ruled-out (3) JAREN (acute kidney injury) Code(s): N17.9 - ACUTE KIDNEY FAILURE, UNSPECIFIED Status: Acute (4) Elevated troponin Code(s): R79.89 - OTHER SPECIFIED ABNORMAL FINDINGS OF BLOOD CHEMISTRY Status : Acute (5) CAD (coronary artery disease) Code(s): I25.10 - ATHSCL HEART DISEASE OF [place] CORONARY ARTERY W/O ANG PCTRS Status: Acute (6) Cardiomyopathy Code(s): I42.9 - CARDIOMYOPATHY, UNSPECIFIED Status: Acute Qualifiers: Cardiomyopathy type: unspecified Qualified Code(s): I42.9 - Cardiomyopathy , unspecified (7) Mitral insufficiency Status: Acute (8) S/P CABG (coronary artery bypass graft) Code(s): Z95.1 - PRESENCE OF AORTOCORONARY BYPASS GRAFT Status: Acute (9) COPD (chronic obstructive pulmonary disease) Status: Chronic (10) Paroxysmal atrial fibrillation Code(s): I48.0 - PAROXYSMAL ATRIAL FIBRILLATION Status: Acute (11) Moderate protein-calorie malnutrition Code(s): E44.0 - MODERATE PROTEIN-CALORIE MALNUTRITION Status: Acute (12) Atherosclerosis of both carotid arteries Code(s): I65.23 - OCCLUSION AND STENOSIS OF BILATERAL CAROTID ARTERIES Status : Acute - Plan DC IVF to avoid fluid overload Avoid anticoagulation due to hemorrhagic conversion. Continue neurochecks PT/OT eval and treat. Continue amiodarone and digoxin. Continue oral supplementation. Consult rehab screening. Start statin. Will start asa once cleared by neurosurgery
--- NOTE | 2019-08-03 14:00 | CON ---
DATE OF CONSULTATION: HISTORY: Abelino Zaidi is a 74-year-old white male who was admitted with mental status changes and a stroke. In August 2007, he was referred for leg pain. However, he had normal peripheral pulses and underwent lower extremity vascular Doppler at [place] which did not show any evidence of significant stenosis. He then presented in March 2019, complaining of intermittent episodes of shortness of breath. He did become very short of breath, felt his heart beating very rapidly. Initially, it was felt this may have been due to anxiety or panic attacks after losing his 4 years previously and his son 4 months prior to that. He was placed on anxiolytics and Seroquel. However, he continued to have episodes of shortness of breath, feeling his heart beating very rapidly. He came to the emergency room and was found to be in atrial fibrillation with fast ventricular response. He was started on intravenous digoxin and amiodarone and converted to sinus rhythm. Echocardiogram revealed moderate bilateral pleural effusions, severe left ventricular dysfunction with ejection fraction of 25% to 30%, moderately enlarged right ventricle, mild left atrial enlargement, mild right atrial enlargement. There is severe mitral regurgitation. He was diuresed and eventually underwent cardiac catheterization. This revealed severe global left ventricular hypokinesis with ejection fraction of 15% to 20% and severe mitral regurgitation. There was a 60 % left main, but otherwise unremarkable coronary arteries. He underwent LILIAM, which revealed poor coaptation of the posterior leaflet of the mitral valve with severe mitral regurgitation. There was no mention of any left atrial appendage thrombus. He then underwent mitral valve repair with placement of an annuloplasty ring, CABG x2 with GUZMÁN to the LAD and saphenous vein graft to the obtuse marginal 1, epicardial Maze procedure and ligation of the left atrial appendage. Postoperatively, he continued to have some episodes of atrial fibrillation and amiodarone was continued. At the time of discharge, he was fitted with a LifeVest. He was placed on low-dose carvedilol. However, ZACK/ARB drugs were not used due to his renal insufficiency. Also, the decision was made not to anticoagulate him due to him maintaining sinus rhythm, no evidence of left atrial appendage thrombus at the time of LILIAM prior to surgery, ligation of left atrial appendage, Maze procedure, his frailty and history of ETOH use. He was seen for followup on May 12, 2019, and was doing fairly well at that time, was also seen by my nurse practitioner on June 02, 2019. He now is admitted with mental status changes and has been found to have a large acute infarction of the left posterior cerebral artery distribution. There were 3 separate foci of hemorrhage in this area. There was some concern that this may have been tumor but apparently is now felt this is a stroke with hemorrhagic conversion of the acute infarct. Mr. Zaidi denies any chest discomfort or shortness of breath since being home. He also states he stopped wearing his LifeVest 2 to 3 weeks ago due to skin irritation. He has not resumed smoking. PAST MEDICAL HISTORY: Hypertension; COPD; hepatitis C, treated with medication for one year; hypercholesterolemia; chronic kidney disease. No history of diabetes. HOME MEDICATIONS: Include 1. Amiodarone 200 mg daily. 2. ProAir 2 puffs q.6 hours p.r.n. 3. Aspirin 81 daily. 4. Atorvastatin 20 at bedtime. 5. Digoxin 0.125 daily. 6. Furosemide 40 daily. ALLERGIES: CODEINE (HIS CHART NOW STATES THAT HE IS ALLERGIC TO IODINE, HOWEVER , THAT WAS NOT PRESENT ON HIS LIST OF ALLERGIES THREE MONTHS AGO AND HE WAS NOT PREMEDICATED PRIOR TO CARDIAC CATHETERIZATION). OPERATIONS: Ear and face surgery after an accident. Mitral valve repair with CABG x2, left atrial appendage ligation and Maze procedure. SOCIAL HISTORY: He smoked one pack per day prior to his cardiac surgery. He would drink 5 or 6 beers per day. FAMILY HISTORY: Negative for coronary artery disease. REVIEW OF SYSTEMS: A 12-point review of systems is unremarkable. PHYSICAL EXAMINATION: VITAL SIGNS: Blood pressure 150/75, pulse of 52. HEENT: PERRL. NECK: Supple. CHEST: Clear. CARDIAC: S1 and S2, normal without any S3, S4, or murmurs. ABDOMEN: Normal bowel sounds without tenderness or organomegaly. EXTREMITIES: Revealed no clubbing, cyanosis, or edema. NEUROLOGIC: Grossly intact. SKIN: Warm and dry. LABORATORY DATA: EKG revealed sinus rhythm with left axis deviation, possible septal infarction, nonspecific ST and T-wave changes. Hemoglobin 10.5, hematocrit 30.9, white count 24068, platelets 151,000. Sodium 140, potassium 4.5, chloride 112, carbon dioxide 22, BUN 38, creatinine 1.46. Cholesterol 133, triglycerides 62, HDL 56, LDL 65. Troponin I 0.030. Echocardiogram revealed ejection fraction of 50% to 55%, left atrial enlargement, mitral annuloplasty ring in place, mild-to- moderate mitral regurgitation, mild tricuspid regurgitation, mild pulmonic insufficiency. Carotid Doppler revealed no hemodynamically significant stenosis. IMPRESSION: 1. Cerebrovascular accident. This certainly could have been embolic in nature from atrial fibrillation, although he does have left atrial appendage ligation. Certainly this may not have totally closed the left atrium. At the present time , he could not be anticoagulated due to hemorrhagic conversion of his stroke. 2. Status post coronary artery bypass grafting x2. 3. Status post mitral valve repair with left atrial appendage ligation and Maze procedure. 4. Atrial fibrillation at presentation prior to cardiac surgery. Currently, he is on amiodarone. He does states at times that he may feel his heart beating rapidly. 5. Significant improvement in left ventricular function with ejection fraction of 15% to 20% at catheterization in March 2019 and an ejection fraction of 50% to 55 % at this time. 6. Chronic kidney disease. 7. Hypercholesterolemia, under good control. 8. Hypertension. 9. Anxiety. 10. History of hepatitis C. 11. Former smoker. PLAN: With significant improved in left ventricular function, Mr. Zaidi may discontinue the LifeVest and return it to the company. At some point in time, consideration should be given to transesophageal echo to see if the left atrial appendage ligation totally closed the left atrial appendage orifice. If not, then consideration should be given to anticoagulation once he is further removed from this acute stroke with hemorrhagic conversion. We will follow the patient with you. Job ID: [id number] [facility]
--- NOTE | 2019-08-03 18:08 | CON ---
DATE OF CONSULTATION: 08/03/2019 CONSULTING PHYSICIAN: Hospitalist Service. IMPRESSION: 1. Left mesiotemporal stroke, possibly cardioembolic in origin. 2. Past history of congestive heart failure with an improved ejection fraction of 55%. 3. Aspirin failure. PLAN: 1. Continue aspirin. 2. Add Plavix 75 mg per day. 3. Consider change to anticoagulant if the patient's gait is safe and stable enough to do so. 4. Rehab screening. HISTORY OF PRESENT ILLNESS: Mr. Zaidi is a 74-year-old man, who came into the emergency room with fairly vague complaints. He just did not feel well. He reported some headache and nausea. He had a CT scan of the brain done, which showed a suspicious left mesiotemporal lobe lesion. Neurosurgery was consulted. Followup MRI revealed that the area of in question was actually a stroke. There was some hemorrhagic conversion present. He reports he is feeling somewhat better, but still has a loss of vision on the right side. He denies any recent stroke symptoms. He has had problems with falls. He reports that he uses a walker around the house, but fell in his bathroom, he could not get up. There were several areas of abrasions involving his right arm and right knee consistent with prior injury. He had a carotid ultrasound done, which was unremarkable. His echocardiogram shows good ejection fraction. He has been consulted on by Dr. Fletcher. He has a past history of intermittent atrial fibrillation. I was called to give a neurologic opinion. PAST MEDICAL HISTORY: COPD, depression, CHF, and coronary artery disease. ALLERGIES: CODEINE AND IODINE. SOCIAL HISTORY: He lives alone in his own home. MEDICATIONS: Medication list was reviewed. REVIEW OF SYSTEMS: Ten-system review of systems is otherwise negative. PHYSICAL EXAMINATION: GENERAL: He is a thin elderly man, lying in bed, in no acute distress. VITAL SIGNS: Blood pressure 147/85, pulse 68, respirations 16, and temperature 98.2. HEENT: Pupils are equal. Conjunctivae clear. Oropharynx clear. Cranium, normocephalic and atraumatic. NECK: Supple. No lymphadenopathy. EXTREMITIES: No cyanosis or edema. NEUROLOGIC: He is alert and cooperative. His speech is fluent and clear. Cranial nerve exam shows a right homonymous hemianopsia. Motor exam shows good strength bilaterally without fix or drift. Sensation was intact to touch bilaterally. He had no tremor or dysmetria. He walked 180 feet with a roller walker earlier today. IMAGING STUDIES: EKG is a normal sinus rhythm. SUMMARY: A 74-year-old gentleman with acute stroke, possibly cardioembolic in origin. Given his fall tendency, I am hesitant to recommend anticoagulation. It would be reasonably safe at this point to add Plavix along with his aspirin. He would probably be a good rehab candidate time. Job ID: [id number]
[2019-08-03] MEDS: Atorvastatin Calcium 40 MG TAB PO SCH (20:00)
[2019-08-04] MEDS: Dexamethasone 4 mg/ml Vial SLOW IVP SCH ×2 (05:53→14:34)
[2019-08-04 06:45] LABS: Albumin 3.3 g/dL (3.4-4.8); Anion Gap 9 mmol/L (10-20); BUN (Urea Nitrogen) 38 mg/dL (8.4-25.7); BUN/Creatinine Ratio 29.92; Calc. Creatinine Clearance 43 mL/min (70-130); Calcium 8.6 mg/dL (7.8-10.44); Carbon Dioxide 24 mmol/L (23-31); Chloride 111 mmol/L (98-107); Estimated GFR-MDRD 56; Glucose 115 mg/dL (83-110); Phosphorus 3.2 mg/dL (2.3-4.7); Potassium 4.3 mmol/L (3.5-5.1); Sodium 140 mmol/L (136-145)
--- NOTE | 2019-08-04 07:34 | PRG ---
DATE OF SERVICE: 08/04/2019 I saw Abelino Zaidi in his hospital room this morning. Gene Del Rosario, the son was at his bedside. I spoke with both of them briefly about his ongoing care. Mr. Zaidi feels like he has improved over the past few days. His son still notes some short-term memory difficulty. I do not see any fevers recorded on his vital sign chart. His blood pressures have been a bit high in the 140s to 170s. On neurological examination, there is short-term memory deficit and upper quadrant anopsia. We are going to get a CT scan of the brain Friday morning. We will ensure that blood products have been dissipated compared to his admission CT and if they have been, he will need a followup CT scan about 2-3 weeks after discharge to ensure all the blood products have gone. I have recommended the MRI followup in 2 months after his first scan. It might be reasonable to do that without contrast first before subjecting him to more gadolinium. Job ID: [id number]
[2019-08-04] MEDS: Digoxin 0.125 MG TAB PO SCH (10:44)
[2019-08-04] MEDS: Aspirin Chewable 81 MG TAB PO SCH (10:46)
[2019-08-04] MEDS: Amlodipine 5 MG TAB PO SCH (10:46)
[2019-08-04] MEDS: Clopidogrel Bisulfate 75 MG TAB PO SCH (10:46)
[2019-08-04] MEDS: Amiodarone 200 MG TAB PO SCH (10:47)
--- NOTE | 2019-08-04 18:51 | PDOC.HOSPP ---
- Subjective Encounter Date: 08/04/19 Encounter Time: 09:49 Subjective: 74 y/o male with CAD s/p recent CABG, mitral regurgitation s/p recent repair, PAF and others admitted with recurrent falls, weakness and memory lapses. CT showed left temporal mass which was confirmed by MRI. However repeat MRI with contrast showed large infarction involving the left posterior cerebral artery. Denied nausea, vomiting or abdominal pain. Oral intake is improving. - Objective Vital Signs & Weight: Vital Signs (12 hours) Temp Pulse Pulse Pulse Resp BP BP 08/04/19 15:41 97.9 F 50 L 15 08/04/19 11:41 97.6 F 55 L 16 08/04/19 10:46 52 L 08/04/19 10:44 52 L 08/04/19 09:45 59 L 50 L 159/82 H 148/77 H 08/04/19 07:44 97.8 F 57 L 16 BP Pulse Ox 08/04/19 15:41 137/69 99 08/04/19 11:41 150/74 H 98 08/04/19 10:46 08/04/19 10:44 08/04/19 09:45 08/04/19 07:44 172/81 H 97 Weight Admit Weight 127 lb Weight 127 lb I&O: 08/03/19 08/04/19 08/05/19 06:59 06:59 06:59 Intake Total 328 840 Output Total 125 Balance 203 840 Result Diagrams: 08/03/19 05:29 08/04/19 05:53 Hospitalist ROS - Medication Medications: Active Medications Generic Name Dose Route Start Last Admin Trade Name Selina PRN Reason Stop Dose Admin Amiodarone HCl 200 mg 08/02/19 09:00 08/04/19 10:47 Cordarone PO 200 mg DAILY JUNAID Administration Amlodipine Besylate 5 mg 08/04/19 09:00 08/04/19 10:46 Norvasc PO 5 mg DAILY JUNAID Administration Aspirin 81 mg 08/03/19 09:00 08/04/19 10:46 Aspirin Chewable PO 81 mg DAILY JUNAID Administration Atorvastatin Calcium 40 mg 08/03/19 21:00 08/03/19 20:00 Lipitor PO 40 mg HS JUNAID Administration Clopidogrel Bisulfate 75 mg 08/04/19 09:00 08/04/19 10:46 Plavix PO 75 mg DAILY JUNAID Administration Digoxin 0.125 mg 08/02/19 09:00 08/04/19 10:44 Lanoxin PO 0.125 mg DAILY JUNAID Administration Sodium Chloride 10 ml 07/31/19 22:23 08/04/19 10:44 Flush - Normal Saline IVF 10 ml PRN PRN Administration Saline Flush - Exam General Appearance: awake alert Eye: anicteric sclera ENT: normocephalic atraumatic Neck: supple, no JVD Heart: RRR Respiratory: no wheezes, no ronchi, normal chest expansion Gastrointestinal: soft, non-tender, non-distended, normal bowel sounds Extremities: no cyanosis, no edema Neurological: cranial nerve grossly intact, no focal deficits Hosp A/P (1) Acute cerebrovascular accident (CVA) Code(s): I63.9 - CEREBRAL INFARCTION, UNSPECIFIED Status: Acute (2) Mass of left temporal lobe Code(s): G93.89 - OTHER SPECIFIED DISORDERS OF BRAIN Status: Ruled-out (3) JAREN (acute kidney injury) Code(s): N17.9 - ACUTE KIDNEY FAILURE, UNSPECIFIED Status: Acute (4) Elevated troponin Code(s): R79.89 - OTHER SPECIFIED ABNORMAL FINDINGS OF BLOOD CHEMISTRY Status : Acute (5) CAD (coronary artery disease) Code(s): I25.10 - ATHSCL HEART DISEASE OF [place] CORONARY ARTERY W/O ANG PCTRS Status: Acute (6) Cardiomyopathy Code(s): I42.9 - CARDIOMYOPATHY, UNSPECIFIED Status: Resolved Qualifiers: Cardiomyopathy type: unspecified Qualified Code(s): I42.9 - Cardiomyopathy , unspecified (7) Mitral insufficiency Status: Acute (8) S/P CABG (coronary artery bypass graft) Code(s): Z95.1 - PRESENCE OF AORTOCORONARY BYPASS GRAFT Status: Acute (9) COPD (chronic obstructive pulmonary disease) Status: Chronic (10) Paroxysmal atrial fibrillation Code(s): I48.0 - PAROXYSMAL ATRIAL FIBRILLATION Status: Acute (11) Moderate protein-calorie malnutrition Code(s): E44.0 - MODERATE PROTEIN-CALORIE MALNUTRITION Status: Acute (12) Atherosclerosis of both carotid arteries Code(s): I65.23 - OCCLUSION AND STENOSIS OF BILATERAL CAROTID ARTERIES Status : Acute (13) Gait instability Code(s): R26.81 - UNSTEADINESS ON FEET Status: Acute (14) Recurrent falls Code(s): R29.6 - REPEATED FALLS Status: Acute - Plan Continue neurochecks Now on ASA and plavix as per neurology PT/OT eval and treat. Continue amiodarone and digoxin. Continue oral supplementation. Rehab screening. Cardiology Neurosurgery and Neurology following.
[2019-08-04] MEDS: Atorvastatin Calcium 40 MG TAB PO SCH (22:14)
[2019-08-04] MEDS: Dexamethasone 4 MG TAB PO SCH (22:15)
[2019-08-05 05:59] LABS: Albumin 3.4 g/dL (3.4-4.8); Anion Gap 12 mmol/L (10-20); BUN (Urea Nitrogen) 42 mg/dL (8.4-25.7); BUN/Creatinine Ratio 32.06; Calc. Creatinine Clearance 42 mL/min (70-130); Calcium 8.6 mg/dL (7.8-10.44); Carbon Dioxide 23 mmol/L (23-31); Chloride 107 mmol/L (98-107); Estimated GFR-MDRD 54; Glucose 113 mg/dL (83-110); Phosphorus 2.7 mg/dL (2.3-4.7); Potassium 4.3 mmol/L (3.5-5.1); Sodium 138 mmol/L (136-145)
--- NOTE | 2019-08-05 07:51 | PRG ---
DATE OF SERVICE: 08/05/2019 I saw Abelino Zaidi in his hospital room this morning. His son, Gene Del Rosario, is at the bedside. We talked a bit about his condition. There have been no events reported overnight. On the electronic medical chart, there are no fevers recorded in last 24 hours and the other vital signs have been relatively stable. The blood pressure is a bit up in the 150s to 170s. There is short-term memory and difficulty that continues, but no new deficits. Today's plan is a transesophageal echocardiogram looking for any vegetation on a mechanical heart valve as a source of stroke. CT scan of the brain will be done tomorrow and if the blood products are stable to decreased compared to his regional CT scan, then he will be ready for transfer to inpatient rehabilitation. Arrangements have already been made for that. Job ID: [id number]
--- NOTE | 2019-08-05 09:24 | PDOC.HOSPP ---
- Subjective Encounter Date: 08/05/19 Encounter Time: 09:23 Subjective: 74 y/o male with CAD s/p recent CABG, mitral regurgitation s/p recent repair, PAF and others admitted with recurrent falls, weakness and memory lapses. CT showed left temporal mass which was confirmed by MRI. However repeat MRI with contrast showed large infarction involving the left posterior cerebral artery. Denied nausea, vomiting or abdominal pain. Oral intake is still poor. NPO for LILIAM. - Objective Vital Signs & Weight: Vital Signs (12 hours) Temp Pulse Resp BP Pulse Ox 08/05/19 07:30 97.9 F 53 L 16 152/79 H 98 08/05/19 03:31 97.2 F L 64 16 156/78 H 98 08/04/19 23:58 97.7 F 54 L 16 177/92 H 97 Weight Admit Weight 127 lb Weight 127 lb I&O: 08/04/19 08/05/19 08/06/19 06:59 06:59 06:59 Intake Total 1040 Output Total 550 Balance 490 Result Diagrams: 08/03/19 05:29 08/05/19 05:12 Hospitalist ROS - Medication Medications: Active Medications Generic Name Dose Route Start Last Admin Trade Name Freq PRN Reason Stop Dose Admin Amiodarone HCl 200 mg 08/02/19 09:00 08/04/19 10:47 Cordarone PO 200 mg DAILY JUNAID Administration Amlodipine Besylate 5 mg 08/04/19 09:00 08/04/19 10:46 Norvasc PO 5 mg DAILY JUNAID Administration Aspirin 81 mg 08/03/19 09:00 08/04/19 10:46 Aspirin Chewable PO 81 mg DAILY JUNAID Administration Atorvastatin Calcium 40 mg 08/03/19 21:00 08/04/19 22:14 Lipitor PO 40 mg HS JUNAID Administration Clopidogrel Bisulfate 75 mg 08/04/19 09:00 08/04/19 10:46 Plavix PO 75 mg DAILY JUNAID Administration Dexamethasone 4 mg 08/04/19 22:00 08/04/19 22:15 Decadron PO 08/06/19 22:01 4 mg Q8HR JUNAID Administration Digoxin 0.125 mg 08/02/19 09:00 08/04/19 10:44 Lanoxin PO 0.125 mg DAILY JUNAID Administration Sodium Chloride 10 ml 07/31/19 22:23 08/04/19 10:44 Flush - Normal Saline IVF 10 ml PRN PRN Administration Saline Flush - Exam General Appearance: awake alert Eye: anicteric sclera ENT: normocephalic atraumatic Neck: symmetric, no JVD Heart: RRR Respiratory: no rales, no ronchi, normal chest expansion Respiratory - other findings: fair air entry bilaterally Gastrointestinal: soft, non-tender, non-distended, normal bowel sounds Extremities: no cyanosis, no edema Neurological: cranial nerve grossly intact Musculoskeletal: generalized weakness, diffuse muscle atrophy Psychiatric: A&O x 3 Psychiatric - other findings: some confusion and memory lapses noted Hosp A/P (1) Acute cerebrovascular accident (CVA) Code(s): I63.9 - CEREBRAL INFARCTION, UNSPECIFIED Status: Acute (2) Mass of left temporal lobe Code(s): G93.89 - OTHER SPECIFIED DISORDERS OF BRAIN Status: Ruled-out (3) JAREN (acute kidney injury) Code(s): N17.9 - ACUTE KIDNEY FAILURE, UNSPECIFIED Status: Acute (4) Elevated troponin Code(s): R79.89 - OTHER SPECIFIED ABNORMAL FINDINGS OF BLOOD CHEMISTRY Status : Acute (5) CAD (coronary artery disease) Code(s): I25.10 - ATHSCL HEART DISEASE OF [place] CORONARY ARTERY W/O ANG PCTRS Status: Acute (6) Mitral insufficiency Status: Acute (7) S/P CABG (coronary artery bypass graft) Code(s): Z95.1 - PRESENCE OF AORTOCORONARY BYPASS GRAFT Status: Acute (8) COPD (chronic obstructive pulmonary disease) Status: Chronic (9) Paroxysmal atrial fibrillation Code(s): I48.0 - PAROXYSMAL ATRIAL FIBRILLATION Status: Acute (10) Moderate protein-calorie malnutrition Code(s): E44.0 - MODERATE PROTEIN-CALORIE MALNUTRITION Status: Acute (11) Atherosclerosis of both carotid arteries Code(s): I65.23 - OCCLUSION AND STENOSIS OF BILATERAL CAROTID ARTERIES Status : Acute (12) Gait instability Code(s): R26.81 - UNSTEADINESS ON FEET Status: Acute (13) Recurrent falls Code(s): R29.6 - REPEATED FALLS Status: Acute (14) Volume depletion Code(s): E86.9 - VOLUME DEPLETION, UNSPECIFIED Status: Acute - Plan Restart IVF for volume depletion. patient also is NPO for LILIAM. Continue neurochecks Now on ASA and plavix as per neurology PT/OT eval and treat. Continue amiodarone and digoxin. Cardiology Neurosurgery and Neurology following. Restart diet after LILIAM.
[2019-08-05] MEDS ORDERED: Sodium Chloride 0.9% 1,000 ML IV SCH (09:30)
[2019-08-05] MEDS: Digoxin 0.125 MG TAB PO SCH (09:56)
[2019-08-05] MEDS: Amlodipine 5 MG TAB PO SCH (09:58)
[2019-08-05] MEDS: Amiodarone 200 MG TAB PO SCH (09:58)
[2019-08-05] MEDS: Clopidogrel Bisulfate 75 MG TAB PO SCH (09:58)
[2019-08-05] MEDS: Lactated Ringer's 1,000 ML IV SCH ×2 (09:59→20:23)
[2019-08-05] MEDS: Dexamethasone 4 MG TAB PO SCH ×2 (09:59→18:25)
[2019-08-05] MEDS: Aspirin Chewable 81 MG TAB PO SCH (10:02)
[2019-08-05] MEDS ORDERED: PROPOFOL 40 ML ONE (13:17)
--- NOTE | 2019-08-05 14:32 | OP ---
DATE OF PROCEDURE: 08/05/2019 PROCEDURE PERFORMED: Transesophageal echocardiogram. INDICATIONS FOR PROCEDURE: A 74-year-old gentleman with cerebrovascular accident. DESCRIPTION OF PROCEDURE: The patient was taken to PACU. The patient was sedated by Anesthesiology. Transesophageal probe was placed into the distal esophagus and stomach. Echocardiographic images were obtained. The transesophageal probe was removed. FINDINGS: 1. Mild decrease in left ventricular systolic function. 2. Biatrial enlargement. 3. Status post mitral valve repair with moderate mitral regurgitation. 4. Mild tricuspid regurgitation. 5. Mild aortic regurgitation. 6. Left atrial appendage is not completely ligated. 7. Clot is noted within the left atrial appendage. 8. Atherosclerotic debris in the descending aorta. IMPRESSION: Left atrial appendage is not completely ligated. Job ID: [id number]
[2019-08-05] MEDS ORDERED: PROPOFOL 200 MG/20 ML VIAL ONE (14:37)
[2019-08-05] MEDS: Atorvastatin Calcium 40 MG TAB PO SCH (20:23)
[2019-08-06] MEDS: Dexamethasone 4 MG TAB PO SCH ×3 (03:25→17:51)
[2019-08-06] MEDS: Lactated Ringer's 1,000 ML IV SCH (05:33)
[2019-08-06 06:25] LABS: Albumin 3.3 g/dL (3.4-4.8); Anion Gap 10 mmol/L (10-20); BUN (Urea Nitrogen) 40 mg/dL (8.4-25.7); BUN/Creatinine Ratio 29.85; Calc. Creatinine Clearance 41 mL/min (70-130); Calcium 8.4 mg/dL (7.8-10.44); Carbon Dioxide 27 mmol/L (23-31); Chloride 103 mmol/L (98-107); Estimated GFR-MDRD 52; Glucose 108 mg/dL (83-110); Magnesium 1.9 mg/dL (1.6-2.6); Potassium 4.1 mmol/L (3.5-5.1); Sodium 136 mmol/L (136-145)
[2019-08-06 06:30] LABS: Hemoglobin 11.3 g/dL (14.0-18.0); Mean Corpuscular HGB CONC 35.4 g/dL (32.0-36.0); Mean Corpuscular Hemoglobin 34.6 pg (27.0-31.0); Mean Corpuscular Volume 97.8 fL (78.0-98.0); Mean Platelet Volume 7.6 fL (7.4-10.4); Platelet Count 184 thou/uL (130-400); RBC Distribution Width 14.2 % (11.5-14.5); Red Blood Cell (RBC) Count 3.26 mill/uL (4.70-6.10)
[2019-08-06 08:31] LABS: Band 2 % (5-11); Lymphocytes 4 % (21-51); MDiff Complete? YES; Monocytes 4 % (0-10); Neutrophil 88 % (42-75); RBC Morphology Normal; Reactive Lymphocytes 2 % (0-10)
--- NOTE | 2019-08-06 08:48 | CT ---
PRELIMINARY REPORT/[facility]/EMERGENCY AFTER HOURS PROCEDURE: PROCEDURE INFORMATION: Exam: CT Head Without Contrast Exam date and time: 08/06/2019 5:09 AM Clinical history: 74 years old, male; Condition or disease; Other: Stroke f/u; Patient HX: [id number] TECHNIQUE: Imaging protocol: Computed tomography of the head without contrast. COMPARISON: MR head^general 08/01/2019 1:06 AM FINDINGS: Brain: Unchanged slightly hyperdense mass in the medial left temporal lobe with adjacent edema and lo julius sulcal effacement. No intracranial hemorrhage. No evidence of acute infarction. Diffuse cortical volume loss. Patchy white matter hypodensities consistent with chronic small vessel ischemic changes. Midline shift: No midline shift. Ventricles: Partial effacement of the temporal horn of the left lateral ventricle as on the prior rio dy. Concordant prominence of the ventricles relative to degree of cortical atrophy. Bones/joints: Unremarkable. No acute fracture. Sinuses: Status post right maxillary antrostomy. No air-fluid levels. Mastoid air cells: No mastoid effusion. Soft tissues: Unremarkable. IMPRESSION: 1. 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 2. Nonacute/incidental findings above. Thank you for allowing us to participate in the care of your patient. Dictated and Authenticated by: Yash Monk MD 08/06/2019 5:25 AM Central Time ([place] & [place]) FINAL REPORT EMERGENT AFTER HOURS CT BRAIN WITHOUT CONTRAST: FINDINGS/IMPRESSION: I agree with the findings and impression given in the preliminary report per [facility] physician. There is a stable left temporal lobe mass. POS: [facility]
[2019-08-06] MEDS: Amiodarone 200 MG TAB PO SCH (08:52)
[2019-08-06] MEDS: Amlodipine 5 MG TAB PO SCH (08:53)
[2019-08-06] MEDS: Clopidogrel Bisulfate 75 MG TAB PO SCH (08:54)
[2019-08-06] MEDS: Aspirin Chewable 81 MG TAB PO SCH (08:55)
[2019-08-06] MEDS: Digoxin 0.125 MG TAB PO SCH (09:36)
[2019-08-06 15:58] VITALS: BP 152/79; TEMP 97.8
[2019-08-06] MEDS: Atorvastatin Calcium 40 MG TAB PO SCH (19:43)
[2019-08-06] MEDS ORDERED: Enoxaparin Sodium 60 MG/0.6 ML SYRINGE SC SCH (21:00)
[2019-08-07] MEDS ORDERED: Dexamethasone 4 MG TAB PO SCH (06:00)
--- NOTE | 2019-08-08 04:20 | PDOC.EVN ---
Event Note - Event Note Event Note: discharge summary dictated. #[id number]
--- NOTE | 2019-08-08 05:24 | DIS ---
DATE OF ADMISSION: 07/31/2019 DATE OF DISCHARGE: 08/06/2019 PRIMARY CARE DOCTOR: Dr. Edu Fletcher. DISCHARGE DIAGNOSES: 1. Acute left temporal lobe cerebrovascular accident. 2. 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 3. Left atrial appendage thrombus. 4. Acute kidney injury. 5. Elevated troponin. 6. Mitral regurgitation. 7. Coronary artery disease, status post coronary artery bypass graft. 8. Chronic obstructive pulmonary disease without acute exacerbation. 9. Paroxysmal atrial fibrillation. 10. Moderate protein-calorie malnutrition. 11. Atherosclerosis of both carotid arteries. 12. Gait instability. 13. Recurrent falls. 14. Volume depletion. CONSULTS: 1. Neurosurgery. 2. Neurology. 3. Cardiology. HOSPITAL COURSE: A 74-year-old patient with known history of coronary artery disease and mitral regurgitation, status post recent CABG with mitral valve repair as well as ligation of left atrial appendage, paroxysmal atrial fibrillation, and others, admitted due to recurrent falls, weakness, memory lapses, and failure to thrive. CT scan obtained showed left temporal mass with surrounding edema but no midline shift. There was also associated moderate ventriculomegaly. Neurosurgery consult saw the patient and repeat MRI obtained about the same time was consistent with CT scan, hence the patient was started on steroid for vasogenic edema. On followup due to persistent of ventriculomegaly, the shunt placement was considered. However, given presentation and concern for possible CVA, Neurosurgery recommended interval MRI repeat. Interval MRI repeat done three days later showed no abnormal intra-axial enhancement, however, evidence of large acute infarction in the left posterior cerebral artery territory with three separate foci of hemorrhage which were thought to be acute hemorrhagic conversion of acute infarction. Consideration for possibility of hemorrhagic neoplastic disease however remained an option, hence serial followup MRIs were recommended. At this point, Neurology consult was obtained and stroke protocol was started. Carotid Dopplers obtained showed bilateral atherosclerotic disease with no hemodynamically significant stenosis. Given history of paroxysmal atrial fibrillation with ligation of the left atrial appendage, Cardiology consult was obtained and transthoracic echocardiogram obtained was unremarkable. However, Cardiology proceeded with doing LILIAM to ascertain if the ligation was still open. It however showed that there were clots in the left atrial appendage, and the appendage is still open and communicating with the at this point, Cardiology recommended anticoagulation once cleared by Neurology and Neurosurgery. I did discuss with Neurology, who recommended commencement of anti-coagulation immediately. I got in touch with Neurosurgery, who recommended also that considering the risk and benefit of anticoagulation in view of the risk of bleeding due to large CVA that is better to start anticoagulation. However, we should avoid new generation oral anticoagulants. The patient was started on Lovenox and discharged to rehab for further restorative therapy. Of note, on presentation, the patient was found to have moderate protein-calorie malnutrition as well as acute kidney injury and dehydration. He was treated with IV fluid therapy with improvement. He also had gait instability, which he was improving with physical therapy hence discharged to rehabilitation for further restorative therapy. PHYSICAL EXAMINATION: VITAL SIGNS: Temperature 97.8, pulse 60, respiratory rate 18, SpO2 of 100% on room air, and blood pressure is 152/79. GENERAL: Thin male, in no obvious distress. Afebrile, anicteric, acyanotic. HEENT: Normocephalic. Healing jaw laceration and right periorbital growth noted. NECK: Supple, nontender with no JVD. CARDIOVASCULAR: Regular rhythm and rate with normal heart sounds 1 and 2. Systolic murmur noted. RESPIRATORY: Good air entry bilaterally with some transmitted breath sounds. No obvious crackle is appreciated. GI: Full, soft, nontender, nondistended with normal bowel sounds. EXTREMITIES: Grossly normal looking, atraumatic with no edema or erythema. TEACHER ASSISTANT: Conscious, alert, oriented x3 with appropriate mental status. The patient moves all extremities. DISCHARGE DISPOSITION: [facility]. DISCHARGE CONDITION: Improving. DISCHARGE MEDICATIONS: 1. Albuterol HFA 2 puffs inhalation q.6h. 2. Amiodarone 200 mg p.o. daily. 3. Aspirin 81 mg p.o. daily. 4. Amlodipine 5 mg p.o. daily. 5. Lipitor 40 mg p.o. daily. 6. Dexamethasone tapering . 7. Digoxin 0.125 mg p.o. daily. 8. Lovenox 60 mg q.12 hours. TIME SPENT: Discharge took more than 45 minutes. Job ID: [id number]
[2019-08-09] MEDS ORDERED: Dexamethasone 4 MG TAB PO SCH (09:00)
== END 2019-08-06 20:00 | DRG 64 ==
LOC: ERS 21:35 → 2SE 22:32
PROVIDERS: ADMIT Internal Medicine; ATTEND Internal Medicine
PROC: B24BZZ4 Ultrasonography of Heart with Aorta, Transesophageal (ICD-10-PCS; principal; 2019-08-05)
DX: I63.9 Cerebral infarction, unspecified (principal); G93.6 Cerebral edema; I61.4 Nontraumatic intracerebral hemorrhage in cerebellum; N17.9 Acute kidney failure, unspecified; E44.0 Moderate protein-calorie malnutrition; I42.9 Cardiomyopathy, unspecified; I13.0 Hypertensive heart and chronic kidney disease with heart failure and stage 1 through stage 4 chronic kidney disease, or unspecified chronic kidney disease; R79.89 Other specified abnormal findings of blood chemistry; I09.9 Rheumatic heart disease, unspecified; I25.10 Atherosclerotic heart disease of native coronary artery without angina pectoris; J44.9 Chronic obstructive pulmonary disease, unspecified; I48.0 Paroxysmal atrial fibrillation; R26.9 Unspecified abnormalities of gait and mobility; R29.6 Repeated falls; E86.9 Volume depletion, unspecified; E86.0 Dehydration; I50.9 Heart failure, unspecified; F32.9 Major depressive disorder, single episode, unspecified; N18.9 Chronic kidney disease, unspecified; E78.00 Pure hypercholesterolemia, unspecified; F41.9 Anxiety disorder, unspecified; B19.20 Unspecified viral hepatitis C without hepatic coma; Z95.1 Presence of aortocoronary bypass graft; Z79.01 Long term (current) use of anticoagulants; Z87.891 Personal history of nicotine dependence; R40.2412 Glasgow coma scale score 13-15, at arrival to emergency department; H53.461 Homonymous bilateral field defects, right side; I51.3 Intracardiac thrombosis, not elsewhere classified
CPT/HCPCS: 36415; 70450; 70551; 70552; 71250; 74177; 80053; 80061; 80069; 80306; 81001; 82140; 82550; 82570; 83735; 83880; 84156; 84300; 84484; 84540; 85025; 93306; 93312; 93880; J1100; J1650; J2704; J8540

== ENCOUNTER 2019-10-14 07:37 | Outpatient (CLI) | payer MEDICARE, BC ==
--- NOTE | 2019-10-14 08:11 | CT ---
CT HEAD WITHOUT IV CONTRAST COMPARISON: 7 08/16/2019 and 08/06/2019 HISTORY: Follow-up intracranial hemorrhage. TECHNIQUE: Axial CT imaging at 5 mm intervals from vertex through skull base without contrast FINDINGS: There is diminished attenuation seen within the posteromedial left temporal lobe and extending into t he left occipital lobe which is in region of prior hemorrhage and has the appearance on today's examination more suggestive of encephalomalacia. Area of diminished attenuation in the right cerebell ar hemisphere is seen related to encephalomalacia secondary to prior infarction. There is no evidence of an acute infarction, hemorrhage, mass effect, or midline shift. Mild cerebral and cerebel lar volume loss is again seen. Ventricular system is stable in appearance. There is thickening of fajardo of the right maxillary antrum which is a stable finding likely sequela o f chronic sinusitis. Mastoid air cells are clear. Osseous structures appear intact. IMPRESSION: 1. No acute intracranial abnormality demonstrated. 2. Encephalomalacia left posteromedial temporal lobe and extending to the left occipital lobe which i s an area of prior hemorrhage and has the appearance of encephalomalacia on the current exam. 3. Remote infarction right cerebellar hemisphere. 4. Chronic small vessel ischemic changes and cerebral as well as cerebellar volume loss.
== END 2019-10-14 07:38 | disposition home or self-care (01) ==
LOC: BICCT 07:37
PROVIDERS: ATTEND Neurological Surgery
DX: I61.5 Nontraumatic intracerebral hemorrhage, intraventricular (principal); G93.89 Other specified disorders of brain; I67.82 Cerebral ischemia
CPT/HCPCS: 70450

== ENCOUNTER 2019-12-06 16:36 | Observation (INO) | payer MEDICARE, BC ==
[2019-12-06 17:51] LABS: #Eosinphils 0.1 thou/uL (0.0-0.7); #Lymphocytes 1.3 thou/uL (1.20-3.40); #Monocytes 0.6 thou/uL (0.11-0.59); #Neutrophils 6.7 thou/uL (1.40-6.50); %Basophils 0.3 % (0.0-1.0); %Eosinophils 0.9 % (0.0-10.0); %Lymphocytes 15.1 % (21.0-51.0); %Monocytes 6.8 % (0.0-10.0); %Neutrophils 76.9 % (42.0-75.0); Hemoglobin 13.3 g/dL (14.0-18.0); Mean Corpuscular HGB CONC 34.5 g/dL (32.0-36.0); Mean Corpuscular Hemoglobin 34.3 pg (27.0-31.0); Mean Corpuscular Volume 99.5 fL (78.0-98.0); Mean Platelet Volume 7.7 fL (7.4-10.4); Platelet Count 211 thou/uL (130-400); RBC Distribution Width 14.9 % (11.5-14.5); Red Blood Cell (RBC) Count 3.88 mill/uL (4.70-6.10); White Blood Cell (WBC) Count 8.7 thou/uL (4.8-10.8)
--- NOTE | 2019-12-06 18:04 | CT ---
CT Brain WO Con: 12/06/2019 5:26 PM CLINICAL HISTORY: Generalized weakness with history of hemorrhagic CVA. IMAGING TECHNIQUE: Multiple CT images were obtained of the brain without IV contrast. COMPARISON: October 14, 2019 FINDINGS: Brain: There is stable encephalomalacia involving the left occipital lobe. No acute infarct, hemorrh age or hydrocephalus is present. There is stable mild chronic small vessel white matter ischemic change. Ventricles: There is stable ex vacuo dilatation of the occipital horn of the left lateral ventricle. Skull: Intact. Visualized Paranasal sinuses: There is postprocedural change of a right maxillary sinus surgery. The paranasal sinuses are clear. Mastoid air cells:Clear. Extracranial soft tissues:Normal. IMPRESSION: No acute intracranial abnormality.
--- NOTE | 2019-12-06 18:05 | RAD ---
PORTABLE CHEST: Indications: Chest pain. FINDINGS: Lungs are clear of infiltrate. There is no evidence of vascular congestion or edema. Heart size is no rmal. Post op sternotomy change is noted. No change from prior exam, 07-31-19. IMPRESSION: No acute finding. POS: [facility]
[2019-12-06 18:12] LABS: ALT (SGPT) 9 U/L (8-55); AST (SGOT) 20 U/L (5-34); Albumin 4.1 g/dL (3.4-4.8); Alkaline Phosphatase 72 U/L (40-110); Anion Gap 10 mmol/L (10-20); BUN (Urea Nitrogen) 20 mg/dL (8.4-25.7); Bilirubin, Total 0.5 mg/dL (0.2-1.2); CK (CPK) 37 U/L (30-200); Calc. Creatinine Clearance 0 mL/min (70-130); Calcium 9.3 mg/dL (7.8-10.44); Carbon Dioxide 28 mmol/L (23-31); Chloride 105 mmol/L (98-107); Estimated GFR-MDRD 40; Globulin 2.5 g/dL (2.4-3.5); Glucose 112 mg/dL (83-110); Potassium 4.2 mmol/L (3.5-5.1); Protein, Total 6.6 g/dL (5.8-8.1); Sodium 139 mmol/L (136-145)
[2019-12-06 20:36] LABS: Bilirubin Negative (Negative); Blood, Urine Negative (Negative); Clarity Clear (Clear); Glucose, Urine (Dipstick) 50 mg/dL (Negative); Leukocyte Negative Leu/uL (Negative); Nitrite Negative (Negative); Protein, Urine (Dipstick) 20 mg/dL (Neg-Trace); Urobilinogen Normal mg/dL (Less than 2)
[2019-12-07 00:10] LABS: Troponin I 0.016 ng/mL (< 0.028)
[2019-12-07] MEDS ORDERED: Nitroglycerin 0.4 MG TAB (25 Tab Bottle) PO PRN (01:19)
[2019-12-07] MEDS ORDERED: Acetaminophen 325 MG TAB PO PRN (01:23)
[2019-12-07] MEDS ORDERED: Diazepam 5 MG TAB PO PRN (01:35)
[2019-12-07] MEDS ORDERED: Thiamine HCl 200 MG/2 ML VIAL IM SCH (01:45)
[2019-12-07] MEDS ORDERED: Thiamine 100 MG TAB ONE (01:49)
--- NOTE | 2019-12-07 01:56 | PDOC.HHP ---
Hospitalist HPI - History of Present Illness Chest pain, SOB, generalized weakness History of Present Illness: PCP: Mitchell Ansari Cardiology: Edu Fletcher The patient is a 74/M with PMH significant for CABG w/ Mitral valve repair, paroxsymal atrial fibrillation w/ ligation of atrial appendage, HTN, COPD, CVA ( R hand residual tremor), brain mass in temporal lobe, intracerebral hemorrhage, tobacco and alcohol abuse that presents for the above complaint. The patient reports he was in usual health when he suddenly developed substernal chest pain this afternoon, describes as chest pressure with associated shortness of breath , diaphoresis and nausea. He felt weak, so he sat down, which resolved his chest pain. The SOB still persisted, denies cough, wheezing, fever or chills. Denies any headaches, focal weakness or speech difficulties. He called his son, Jgauar Del Rosario, who is a nurse at this hospital. [facility] called EMS. Per EMS report, chest pain resolved on arrival, POC glucose 115, gave 1L NS and transported to ER. Last echocardiogram 08/03/19 EF 50-55% ED Course: EKG NSR bpm, no ST elevations Trops negative CXR negative CT brain negative for acute process DD 0.53, age adjusted, normal for age CMP and CBC and UA unremarkable Given: Duoneb x 1 Hospitalist ROS - Review of Systems Constitutional: reports: weakness, malaise. denies: fever, chills, sweats Eyes: denies: pain, vision change, conjunctivae inflammation, eyelid inflammation, redness, other ENT: denies: ear pain, ear discharge, nose pain, nose discharge, nose congestion , mouth pain, mouth swelling, throat pain, throat swelling, other Respiratory: reports: shortness of breath. denies: cough, hemoptysis, sputum, wheezing Cardiovascular: reports: chest pain. denies: palpitations, paroxysmal noc. dyspnea, edema, light headedness Gastrointestinal: reports: nausea. denies: vomiting, abdominal pain, diarrhea, constipation Genitourinary: denies: dysuria, frequency, incontinence, hematuria, retention, other Neurological: reports: weakness. denies: incoordination, change in speech, confusion Hospitalist History - Past Medical History Source: patient Cardiac: reports: AFIB (Paroxysmal), CAD, HTN, Valve insufficiency Pulmonary: reports: COPD WORKDAY MANAGER: reports: CVA, Other (brain mass of temporal lobe) Hepatobiliary: reports: Hep A/B/C (Hep C) Psych: reports: Depression - Past Surgical History Past Surgical History: reports: CABG (with MVR), Other (ligation atrial appendage left ear amputation and repair) - Family History Family History: reports: cardiac disorder - Social History Smoking Status: Current every day smoker Tobacco Type: cigarettes (1ppd x 30 years) Alcohol: reports: Heavy (drinks beer daily < 5 drinks/day) Drugs: reports: none Living Situation: Alone Occupation: Lives in [facility], 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 Activity level: uses cane/walker (non compliant) - Exam General Appearance: NAD, awake alert Eye: anicteric sclera ENT: normocephalic atraumatic Neck: no JVD, no lymphadenopathy, no carotid bruit Heart: RRR, no murmur, no gallops, no rubs, normal peripheral pulses Respiratory: no rales, no ronchi, wheezes Gastrointestinal: soft, non-tender, normal bowel sounds, no guarding, no rigidity Extremities: no cyanosis, no edema Skin: no rashes Neurological: cranial nerve grossly intact, no new deficit Neurological - other findings: chronic right hand tremor Psychiatric: normal affect, A&O x 3 Hospitalist Results - Labs Result Diagrams: 12/07/19 01:57 12/07/19 01:57 Lab results: WBC 8.7 thou/uL (4.8-10.8) 12/06/19 17:42 Hgb 13.3 g/dL (14.0-18.0) L 12/06/19 17:42 Hct 38.6 % (42.0-52.0) L 12/06/19 17:42 MCV 99.5 fL (78.0-98.0) H 12/06/19 17:42 Plt Count 211 thou/uL (130-400) 12/06/19 17:42 Neutrophils % 76.9 % (42.0-75.0) H 12/06/19 17:42 Sodium 139 mmol/L (136-145) 12/06/19 17:42 Potassium 4.2 mmol/L (3.5-5.1) 12/06/19 17:42 Chloride 105 mmol/L (98-107) 12/06/19 17:42 Carbon Dioxide 28 mmol/L (23-31) 12/06/19 17:42 BUN 20 mg/dL (8.4-25.7) 12/06/19 17:42 Creatinine 1.70 mg/dL (0.7-1.3) H 12/06/19 17:42 Glucose 112 mg/dL (83-110) H 12/06/19 17:42 Calcium 9.3 mg/dL (7.8-10.44) 12/06/19 17:42 Total Bilirubin 0.5 mg/dL (0.2-1.2) 12/06/19 17:42 AST 20 U/L (5-34) 12/06/19 17:42 ALT 9 U/L (8-55) 12/06/19 17:42 Alkaline Phosphatase 72 U/L (40-110) 12/06/19 17:42 Creatine Kinase 37 U/L (30-200) 12/06/19 17:42 Troponin I 0.016 ng/mL (< 0.028) 12/06/19 23:36 Serum Total Protein 6.6 g/dL (5.8-8.1) 12/06/19 17:42 Albumin 4.1 g/dL (3.4-4.8) 12/06/19 17:42 Urine Ketones Negative mg/dL (Negative) 12/06/19 20:21 Urine Blood Negative (Negative) 12/06/19 20:21 Urine Nitrite Negative (Negative) 12/06/19 20:21 Ur Leukocyte Esterase Negative Dragan/uL (Negative) 12/06/19 20:21 - EKG Interpretation EKG: NSR - Radiology Interpretation CT scan - head Status: report reviewed by me Chest x-ray Status: report reviewed by me Hospitalist H&P A/P - Problem (1) Chest pain Code(s): R07.9 - CHEST PAIN, UNSPECIFIED Status: Acute Assessment and Plan: Admit telemetry floor, observation status Echocardiogram 08/03/19 Trend troponins Consult cardiology Give ASA check TSH, FLP, Mag level (2) COPD exacerbation Code(s): J44.1 - CHRONIC OBSTRUCTIVE PULMONARY DISEASE W (ACUTE) EXACERBATION Status: Acute Assessment and Plan: Duonebs scheduled and prn prednisone 40mg x 1 dose Supplemental oxygen prn (3) HTN (hypertension) Code(s): I10 - ESSENTIAL (PRIMARY) HYPERTENSION Status: Acute Assessment and Plan: Will restart home medications when reconciled. (4) CKD (chronic kidney disease), stage III Code(s): N18.3 - CHRONIC KIDNEY DISEASE, STAGE 3 (MODERATE) Status: Chronic Assessment and Plan: Stable, creatinine 1.76 on 10/25/19 (5) Hx of CABG Status: Chronic (6) Tobacco abuse Code(s): Z72.0 - TOBACCO USE Status: Chronic Assessment and Plan: Tobacco cessation counseling (7) Alcohol abuse Code(s): F10.10 - ALCOHOL ABUSE, UNCOMPLICATED Status: Chronic Assessment and Plan: ASE protocol monitoring Check Thiamine, B12, folic acid - Plan Plan: GI prophylaxis Full Code
[2019-12-07 02:08] LABS: #Eosinphils 0.1 thou/uL (0.0-0.7); #Lymphocytes 1.4 thou/uL (1.20-3.40); #Monocytes 0.4 thou/uL (0.11-0.59); #Neutrophils 4.2 thou/uL (1.40-6.50); %Basophils 0.7 % (0.0-1.0); %Eosinophils 1.7 % (0.0-10.0); %Lymphocytes 23.6 % (21.0-51.0); %Monocytes 5.9 % (0.0-10.0); %Neutrophils 68.1 % (42.0-75.0); Hemoglobin 13.8 g/dL (14.0-18.0); Mean Corpuscular HGB CONC 34.3 g/dL (32.0-36.0); Mean Corpuscular Hemoglobin 33.8 pg (27.0-31.0); Mean Corpuscular Volume 98.6 fL (78.0-98.0); Mean Platelet Volume 7.6 fL (7.4-10.4); Platelet Count 206 thou/uL (130-400); Red Blood Cell (RBC) Count 4.08 mill/uL (4.70-6.10); White Blood Cell (WBC) Count 6.1 thou/uL (4.8-10.8)
[2019-12-07 02:39] LABS: Anion Gap 13 mmol/L (10-20); BUN (Urea Nitrogen) 18 mg/dL (8.4-25.7); Calc. Creatinine Clearance 0 mL/min (70-130); Calcium 9.4 mg/dL (7.8-10.44); Carbon Dioxide 26 mmol/L (23-31); Chloride 106 mmol/L (98-107); Estimated GFR-MDRD 47; Glucose 93 mg/dL (83-110); Potassium 4.3 mmol/L (3.5-5.1); Sodium 141 mmol/L (136-145)
[2019-12-07 02:41] LABS: Cardiac Risk 1.6 (Less than 4.5)
[2019-12-07] MEDS ORDERED: predniSONE 20 MG TAB PO SCH (03:00)
[2019-12-07] MEDS ORDERED: Aspirin Chewable 81 MG TAB PO SCH (03:15)
[2019-12-07] MEDS ORDERED: predniSONE 20 MG TAB ONE (03:29)
[2019-12-07] MEDS ORDERED: Aspirin Chewable 81 MG TAB ONE (03:29)
[2019-12-07] MEDS: Multivitamin W/ Minerals 1 TAB PO SCH (10:33)
[2019-12-07] MEDS: Folic Acid 1 MG TAB PO SCH (10:33)
[2019-12-07] MEDS: Famotidine 20 MG TAB PO SCH (10:33)
--- NOTE | 2019-12-07 11:59 | PDOC.HOSPP ---
- Subjective Encounter Date: 12/07/19 Encounter Time: 11:00 Subjective: breathing better, no chest pain or sob is moving all extremities - Objective Vital Signs & Weight: Vital Signs (12 hours) Temp Pulse Resp BP BP Pulse Ox 12/07/19 11:51 98.0 F 58 L 14 130/68 99 12/07/19 08:02 97 12/07/19 07:59 76 15 12/07/19 07:45 156/81 H 12/07/19 06:50 97.4 F L 57 L 20 156/81 H 97 Weight Weight 126 lb 6.4 oz Result Diagrams: 12/07/19 01:57 12/07/19 01:57 Hospitalist ROS - Medication Medications: Active Medications Generic Name Dose Route Start Last Admin Trade Name Freq PRN Reason Stop Dose Admin Albuterol/Ipratropium 3 ml 12/07/19 07:00 12/07/19 07:59 Duoneb NEB 3 ml [id number] JUNAID Administration Famotidine 20 mg 12/07/19 09:00 12/07/19 10:33 Pepcid PO 20 mg 0900 JUNAID Administration Folic Acid 1 mg 12/07/19 09:00 12/07/19 10:33 Folvite PO 1 mg DAILY JUNAID Administration Iron/Minerals/Multivitamins 1 tab 12/07/19 09:00 12/07/19 10:33 Theragran M PO 1 tab DAILY JUNAID Administration Sodium Chloride 10 ml 12/07/19 09:00 12/07/19 10:34 Flush - Normal Saline IVF 10 ml Q12HR JUNAID Administration - Exam General Appearance: awake alert Eye: PERRL, anicteric sclera ENT: no oropharyngeal lesions, moist mucosa Neck: supple, no JVD Heart: RRR, no murmur Respiratory: no wheezes, no rales, rhonchi Gastrointestinal: soft, non-tender, non-distended, normal bowel sounds Extremities: no cyanosis, no edema Neurological: no focal deficits, vision deficit Hosp A/P (1) COPD exacerbation Code(s): J44.1 - CHRONIC OBSTRUCTIVE PULMONARY DISEASE W (ACUTE) EXACERBATION Status: Acute (2) H/O: CVA (cerebrovascular accident) Code(s): Z86.73 - PRSNL HX OF TIA (TIA), AND CEREB INFRC W/O RESID DEFICITS Status: Chronic (3) H/O mitral valve repair Code(s): Z98.890 - OTHER SPECIFIED POSTPROCEDURAL STATES Status: Chronic (4) HTN (hypertension) Code(s): I10 - ESSENTIAL (PRIMARY) HYPERTENSION Status: Chronic Qualifiers: Hypertension type: essential hypertension Qualified Code(s): I10 - Essential (primary) hypertension (5) CKD (chronic kidney disease), stage III Code(s): N18.3 - CHRONIC KIDNEY DISEASE, STAGE 3 (MODERATE) Status: Chronic (6) Depression Code(s): F32.9 - MAJOR DEPRESSIVE DISORDER, SINGLE EPISODE, UNSPECIFIED Status : Chronic Qualifiers: Depression Type: major depressive disorder Active/Remission status: in full remission (7) Hepatitis C Code(s): B19.20 - UNSPECIFIED VIRAL HEPATITIS C WITHOUT HEPATIC COMA Status: Chronic Qualifiers: Viral hepatitis chronicity: chronic (8) CAD (coronary artery disease) Code(s): I25.10 - ATHSCL HEART DISEASE OF [place] CORONARY ARTERY W/O ANG PCTRS Status: Chronic Qualifiers: Coronary Disease-Associated Artery/Lesion type: bypass graft [place] vs. transplanted heart: [place] heart Associated angina: without angina Qualified Code(s): I25.810 - Atherosclerosis of coronary artery bypass graft(s) without angina pectoris (9) Paroxysmal atrial fibrillation Code(s): I48.0 - PAROXYSMAL ATRIAL FIBRILLATION Status: Chronic (10) Recurrent falls Code(s): R29.6 - REPEATED FALLS Status: Chronic - Plan continue nebs, got one dose steroids last evening on amiodarone, digoxin, xarelto (h/o left atrial appendage clot and paroxysmal afib), coreg, norvasc, aspirin and lipitor renal function is back to baseline ambulate as tolerated hemostable likely dc plan in am Last ef was 50% in jul 2019, had left atrial appendage clot on LILIAM h/o cva in temporo-occipital area in jul 2019 ldc is 39 now, may dc lipitor if ok with
[2019-12-07] MEDS: Rivaroxaban 15 MG TAB PO SCH (17:45)
[2019-12-07] MEDS: Carvedilol 3.125 MG TAB PO SCH (20:16)
[2019-12-07] MEDS ORDERED: Atorvastatin Calcium 40 MG TAB PO SCH (21:00)
--- NOTE | 2019-12-07 21:52 | CON ---
DATE OF CONSULTATION: HISTORY OF PRESENT ILLNESS: Abelino Zaidi is a 74-year-old white male, who initially was referred for leg pain in August 2007. He had normal peripheral pulses and underwent lower extremity vascular Doppler at [facility] which did not show any evidence of significant stenosis. He then presented in March 2019, complaining of intermittent episodes of shortness of breath. Whenever he will become short of breath, he feels his heart beating very rapidly. Initially it was felt this may have been due to anxiety or panic attacks after losing his 4 years previously and his son 4 months prior to that. He was placed on anxiolytics and Seroquel, however, he continued to have episodes of shortness of breath and feeling his heart beating very rapidly. He ultimately came to the emergency room and was found to be in atrial fibrillation with fast ventricular response. He was given intravenous digoxin and amiodarone and converted to sinus rhythm. Echocardiogram revealed moderate bilateral pleural effusions, severe left ventricular dysfunction with ejection fraction of 25% to 30%, moderately enlarged right ventricle, mild left atrial enlargement, and mild right atrial enlargement. He had severe mitral regurgitation. He was diuresed and eventually underwent catheterization. This revealed severe global left ventricular hypokinesis with ejection fraction of 15% to 20% and severe mitral regurgitation. There was a 60% left main, but otherwise unremarkable coronary arteries. He underwent transesophageal echo, which revealed poor coaptation of the posterior leaflet of the mitral valve with severe mitral regurgitation. There was no mention of any left atrial appendage thrombus. He then underwent mitral valve repair with placement of an annuloplasty ring, CABG x2 with GUZMÁN to LAD and saphenous vein graft to the first obtuse marginal, epicardial maze procedure, and ligation of the left atrial appendage. Postoperatively, he continued to have some episodes of atrial fibrillation and amiodarone was continued. At the time of the discharge, he was fitted with a LifeVest. He was placed on low-dose carvedilol. ZACK and ARB drugs were not used due to his renal insufficiency. Also, the decision was made not to anticoagulate him due to maintaining sinus rhythm, no evidence of left atrial appendage thrombus at the time of LILIAM prior to surgery, ligation of left atrial appendage and maze procedure. Also, there was concern about his frailty and history of ETOH use. He was seen for followup on May 12, 2019, was doing very well at that time and was seen by my nurse practitioner on June 02, 2019. He then was admitted in July 2019, with mental status changes and was found to have a large acute infarction of the left posterior cerebral artery distribution. There were 3 separate foci of hemorrhage in this area. There was some concern that this may have been tumor; however, ultimately if was felt this is a stroke with hemorrhagic conversion of the acute infarct. Mr. Zaidi had no chest pain or shortness of breath at that time. He also had stopped wearing his LifeVest 2-3 weeks prior to that due to skin irritation. During that admission, he underwent echocardiography. This revealed, surprisingly, that his ejection fraction had improved to 50% to 55%. The left atrium was mildly dilated. There was some mitral valve annuloplasty ring in place, [id number] mitral regurgitation, mild tricuspid regurgitation, and mild pulmonic insufficiency. During that admission, he also underwent transesophageal echo, which revealed mild decrease in left ventricular systolic function, biatrial enlargement, mitral valve repair with moderate mitral regurgitation, mild tricuspid regurgitation, mild aortic regurgitation. The left atrial appendage was not completely ligated and clot was noted in the left atrial appendage. It was felt that he probably had embolic event from his left atrial appendage. Ultimately, as an outpatient, he was placed on Xarelto. He was last seen in the office in August 2019 and denies any chest pains or shortness of breath. Yesterday morning, he began to develop chest pressure as well as shortness of breath. He is an extremely poor historian and cannot give me any more details in regard to this. From the emergency room note, the chest pain resolved without any intervention. The patient is not able to give any further details. He did receive DuoNeb when he arrived in the emergency room. Mr. Zaidi could not tell me where he lives, but does state that he is in a hotel and I do think he is in one of the surrounding nursing homes. PAST MEDICAL HISTORY: Hypertension, COPD, hepatitis C treated with medication for 1 year, hypercholesterolemia, chronic kidney disease, coronary artery disease, history of atrial fibrillation. MEDICATIONS: 1. Digoxin 0.125 daily. 2. Amiodarone 200 mg daily. 3. Carvedilol 3.125 b.i.d. 4. Xarelto 15 mg q.p.m. 5. Atorvastatin 40 at bedtime. ALLERGIES: CODEINE. PAST SURGICAL HISTORY: CABG x2 with mitral valve repair, maze procedure and left atrial appendage ligation (left atrial appendage was open with thrombus present on last LILIAM), apparent face surgery after an accident. SOCIAL HISTORY: Smoked 1 pack per day, but he states he stopped at the time of his cardiac surgery. He also drink 5 or 6 beers per day. FAMILY HISTORY: Negative for coronary artery disease. REVIEW OF SYSTEMS: Unremarkable. PHYSICAL EXAMINATION: VITAL SIGNS: Blood pressure 147/72, pulse 57. HEENT: PERRL. NECK: Supple. CHEST: Reveals expiratory wheezing. CARDIOVASCULAR: S1 and S2 were normal without any S3, S4, or murmurs. ABDOMEN: Normal bowel sounds without tenderness or organomegaly. EXTREMITIES: Revealed no clubbing, cyanosis, or edema. NEUROLOGICAL: Grossly intact; however, the patient is a very poor historian. LABORATORY DATA: EKG reveals normal sinus rhythm with poor R-wave progression. Hemoglobin 13.8, hematocrit 40.2, white count 6100, and platelets 206,000. Sodium 141, potassium 4.3, chloride 106, carbon dioxide 26, BUN 18, creatinine 1.47. BNP 371.3. Cholesterol 124, triglycerides 29, HDL 79, LDL 39. TSH is normal. Cardiac enzymes are normal x3. IMPRESSION: 1. Chest pain. 2. Status post coronary artery bypass graft x2, mitral valve repair, maze procedure, and left atrial appendage ligation. 3. Dramatic improvement in ejection fraction up to 50% to 55% on echo in July. 4. Cerebrovascular accident in July 2019, probably due to embolic event from left atrial appendage thrombus. 5. Atrial fibrillation at the time of presentation prior to cardiac surgery. He continues to maintain sinus rhythm. 6. Chronic kidney disease. 7. Hypercholesterolemia, under good control. 8. Hypertension. 9. Anxiety. 10. Former smoker. 11. History of hepatitis C. PLAN: Echocardiogram will be performed to reassess left ventricular function. He has significant wheezing at this time and is receiving DuoNebs and consideration may need to be given to steroids for this. Job ID: [id number]
[2019-12-07] MEDS ORDERED: Diazepam 5 MG TAB PO SCH (22:00)
[2019-12-08] MEDS ORDERED: Diazepam 5 MG TAB PO PRN (04:00)
[2019-12-08 05:11] LABS: Hemoglobin 11.9 g/dL (14.0-18.0); Platelet Count 178 thou/uL (130-400)
[2019-12-08] MEDS ORDERED: predniSONE 20 MG TAB PO SCH (08:15)
[2019-12-08] MEDS ORDERED: Digoxin 0.125 MG TAB PO SCH (09:00)
[2019-12-08] MEDS ORDERED: Magnesium Oxide 400 MG TAB PO SCH (09:00)
[2019-12-08] MEDS ORDERED: Amlodipine 10 MG TAB PO SCH (09:00)
[2019-12-08] MEDS ORDERED: Aspirin 81 mg Enteric Coated Tablet PO SCH (09:00)
[2019-12-08] MEDS ORDERED: Thiamine 100 MG TAB PO SCH (09:00)
[2019-12-08] MEDS ORDERED: Amiodarone 200 MG TAB PO SCH (09:00)
[2019-12-08] MEDS: Carvedilol 3.125 MG TAB PO SCH (09:57)
[2019-12-08] MEDS: Famotidine 20 MG TAB PO SCH (09:58)
[2019-12-08] MEDS: Multivitamin W/ Minerals 1 TAB PO SCH (09:58)
[2019-12-08] MEDS: Folic Acid 1 MG TAB PO SCH (09:58)
[2019-12-08 15:17] VITALS: BP 105/55; TEMP 98.8
[2019-12-08 17:23] VITALS: BMI 18.5
[2019-12-08] MEDS: Rivaroxaban 15 MG TAB PO SCH (17:51)
[2019-12-09] MEDS ORDERED: predniSONE 5 MG TAB PO SCH (08:00)
--- NOTE | 2019-12-09 08:36 | DIS ---
DATE OF ADMISSION: 12/06/2019 DATE OF DISCHARGE: 12/08/2019 DISCHARGE DISPOSITION: To home. PRIMARY DISCHARGE DIAGNOSIS: Chronic obstructive pulmonary disease exacerbation. SECONDARY DISCHARGE DIAGNOSES: 1. History of cerebrovascular accident. 2. History of mitral valve ring with repair. 3. Hypertension. 4. Chronic kidney disease, stage 3. 5. Depression. 6. Hepatitis C. 7. Coronary artery disease. 8. Paroxysmal atrial fibrillation. 9. History of falls. PROCEDURES DONE DURING HOSPITALIZATION: Chest x-ray done showed no acute findings. CT brain showed no acute intracranial abnormality. There was stable ex vacuo dilatation of the occipital horn of the left lateral ventricle. There is stable encephalomalacia involving left occipital lobe. H and H 12 and 34, platelet count 178, and MCV is 98. Creatinine 1.69, BUN 18, BNP was 371, B12 of 215, folic acid 10.4, total cholesterol 124, triglycerides 29, LDL 39, HDL is 79. Troponin x3 negative. TSH 3.49. DISCHARGE MEDICATIONS: 1. Amiodarone 200 mg p.o. daily. 2. Norvasc 10 mg daily. 3. Aspirin 81 mg daily. 4. Coreg 3.125 mg twice daily. 5. Xarelto 15 mg p.o. q.p.m. 6. Lipitor 40 mg p.o. at bedtime. 7. Lanoxin 0.125 mg p.o. daily. 8. Folic acid 1 mg p.o. daily. 9. DuoNebs q.6 hourly p.r.n. 10. Multivitamin one tablet once daily. 11. Prednisone 5 mg p.o. daily for 3 days. 12. Thiamine 100 mg p.o. daily. ALLERGIES: ALLERGIC TO CODEINE. DISCHARGE PLAN: The patient to follow up with Dr. Mitchell Ansari in [address] Fletcher in 2 to 3 weeks. BRIEF COURSE DURING HOSPITALIZATION: The patient initially came in with complaints of shortness of breath and generalized weakness along with chest pain. In view of his cardiac history, the patient was placed under observation on telemetry. Three sets of troponin were done, which were negative. The CT brain and chest x-ray did not reveal any acute abnormalities. The patient was placed on DuoNebs along with steroids and has responded well to above measures. He was also evaluated by Dr. Fletcehr. He remained hemodynamically stable prior to discharge. I have given complete updates to his son and the patient. Please note, I have seen and examined the patient on the day of discharge. Job ID: [id number]
--- NOTE | 2019-12-11 08:45 | EKG ---
Test Reason : Blood Pressure : / mmHG Vent. Rate : 060 BPM Atrial Rate : 060 BPM P-R Int : 190 ms QRS Dur : 100 ms QT Int : 394 ms P-R-T Axes : 086 -28 087 degrees QTc Int : 394 ms Normal sinus rhythm Cannot rule out Anteroseptal infarct , age undetermined Abnormal ECG Confirmed by NATHAN PACHECO D.O. ([id number]), proposal editor OBIE PERALES ([id number]) on 12/11/2019 8:44:51 AM Referred By: Confirmed By:NATHAN PACHECO D.O.
== END 2019-12-08 19:15 | disposition home or self-care (01) ==
LOC: ERS 16:36 → ERHOLD 20:00 → 2SW 12-07 07:06
PROVIDERS: ADMIT Internal Medicine; ATTEND Internal Medicine
DX: J44.1 Chronic obstructive pulmonary disease with (acute) exacerbation (principal); I12.9 Hypertensive chronic kidney disease with stage 1 through stage 4 chronic kidney disease, or unspecified chronic kidney disease; N18.3 Chronic kidney disease, stage 3 (moderate); I48.0 Paroxysmal atrial fibrillation; I25.10 Atherosclerotic heart disease of native coronary artery without angina pectoris; F32.9 Major depressive disorder, single episode, unspecified; F17.210 Nicotine dependence, cigarettes, uncomplicated; F10.10 Alcohol abuse, uncomplicated; B19.20 Unspecified viral hepatitis C without hepatic coma; R29.6 Repeated falls; Z79.01 Long term (current) use of anticoagulants; Z79.82 Long term (current) use of aspirin; Z79.899 Other long term (current) drug therapy; Z88.5 Allergy status to narcotic agent; Z86.73 Personal history of transient ischemic attack (TIA), and cerebral infarction without residual deficits; Z95.1 Presence of aortocoronary bypass graft; Z95.4 Presence of other heart-valve replacement
CPT/HCPCS: 36415; 70450; 71045; 80048; 80053; 80061; 81003; 82550; 82565; 82607; 82746; 83690; 83735; 83880; 84425; 84443; 84484; 85014; 85018; 85025; 85049; 85379; 87804; 93005; 93306; 94640; 94760; 96365; 96366; 96372; G0378; J3411; J3475; J3490; J7512; J7620

== ENCOUNTER 2020-03-03 09:29 | Inpatient (IN) | payer MEDICARE, BC ==
[2020-03-03] MEDS ORDERED: Ondansetron PF 4 MG/2 ML Vial ONE (10:17)
[2020-03-03 10:18] LABS: #Lymphocytes 1.1 thou/uL (1.20-3.40); #Monocytes 0.4 thou/uL (0.11-0.59); #Neutrophils 3.5 thou/uL (1.40-6.50); %Basophils 0.8 % (0.0-1.0); %Eosinophils 0.7 % (0.0-10.0); %Lymphocytes 21.3 % (21.0-51.0); %Monocytes 7.7 % (0.0-10.0); %Neutrophils 69.4 % (42.0-75.0); Hemoglobin 14.8 g/dL (14.0-18.0); Mean Corpuscular Hemoglobin 34.9 pg (27.0-31.0); Mean Platelet Volume 8.2 fL (7.4-10.4); Platelet Count 174 thou/uL (130-400); RBC Distribution Width 13.9 % (11.5-14.5); Red Blood Cell (RBC) Count 4.24 mill/uL (4.70-6.10); White Blood Cell (WBC) Count 5.1 thou/uL (4.8-10.8)
[2020-03-03 10:40] LABS: ALT (SGPT) 10 U/L (8-55); AST (SGOT) 20 U/L (5-34); Albumin 4.4 g/dL (3.4-4.8); Alkaline Phosphatase 60 U/L (40-110); Anion Gap 10 mmol/L (10-20); BUN (Urea Nitrogen) 24 mg/dL (8.4-25.7); Bilirubin, Total 0.7 mg/dL (0.2-1.2); CK (CPK) 35 U/L (30-200); Calc. Creatinine Clearance 0 mL/min (70-130); Calcium 9.4 mg/dL (7.8-10.44); Carbon Dioxide 30 mmol/L (23-31); Chloride 101 mmol/L (98-107); Estimated GFR-MDRD 36; Globulin 2.6 g/dL (2.4-3.5); Glucose 93 mg/dL (83-110); Potassium 4.4 mmol/L (3.5-5.1); Sodium 137 mmol/L (136-145)
[2020-03-03] MEDS ORDERED: Aspirin Chewable 81 MG TAB ONE (11:42)
[2020-03-03 12:22] LABS: INR-International Normal Ratio 2.5; Prothrombin Time 26.8 sec (12.0-14.7)
[2020-03-03 12:23] LABS: Digoxin 2.16 ng/mL (0.8-2.0)
--- NOTE | 2020-03-03 12:23 | CT ---
CT HEAD WITHOUT CONTRAST: INDICATION: Mental status change. Visual disturbance and gait disturbance. COMPARISON: Comparison is made to head CT of 11/26/2019. FINDINGS: There is moderate chronic ischemic white matter change which appears stable. Volume loss in the post erior left temporal along the temporal horn is stable indicating old infarct. No evidence of acute i nfarct or hemorrhage. No mass effect or edema. Paranasal sinuses appear clear. IMPRESSION: No acute process. Chronic ischemic changes are stable. POS: AH
--- NOTE | 2020-03-03 12:25 | RAD ---
SINGLE VIEW OF THE CHEST: COMPARISON: 12/06/2019. HISTORY: Stroke-like symptoms for 2 days and altered mental status. FINDINGS: A single view of the chest shows a normal-size cardiomediastinal silhouette with atherosclerotic calc ifications in the aorta. The patient is status post sternotomy. There is no evidence of consolidati on, mass, or pleural effusion. IMPRESSION: No evidence of acute cardiopulmonary disease. POS: EAA
[2020-03-03] MEDS ORDERED: Bisacodyl 10 MG SUPP PR PRN (14:15)
[2020-03-03] MEDS ORDERED: Labetalol HCl 100 MG/20 ML VIAL SLOW IVP PRN (14:15)
[2020-03-03] MEDS ORDERED: Bisacodyl 5 MG TAB PO PRN (14:15)
[2020-03-03] MEDS ORDERED: Acetaminophen 325 MG TAB PO PRN ×2 (14:15→14:16)
[2020-03-03] MEDS ORDERED: hydrALAZINE 20 MG/ML VIAL SLOW IVP PRN (14:15)
[2020-03-03] MEDS ORDERED: Acetaminophen 650 MG Suppository PR PRN (14:15)
[2020-03-03] MEDS ORDERED: Ondansetron PF 4 MG/2 ML Vial IVP PRN ×2 (14:15→16:37)
[2020-03-03] MEDS ORDERED: Sodium Chloride 0.9% 1,000 ML IV SCH (14:16)
[2020-03-03 14:17] VITALS: BMI 18.1
--- NOTE | 2020-03-03 14:57 | CON ---
NEUROLOGY CONSULTATION DATE OF CONSULTATION: 03/03/2020 REASON FOR CONSULTATION: CVA. HISTORY OF PRESENT ILLNESS: Mr. Zaidi is a 75-year-old male with medical history significant for prior CVA with bleed in August 2019, COPD, aortic valve replacement, CABG x4, depression, history of alcohol abuse, drinks 5 or more drinks per day, and 1 pack of cigarettes per day. He was brought to the emergency room with difficulty seeing from the left eye and imbalance associated with nausea, anorexia for the last 2 days. Per son, the patient has stopped taking his Zoloft, initially thought that he is having withdrawal symptoms coming off Zoloft; however, then he noted that he could not see well from the left eye and is also felt weaker on the left side of the body, especially the leg with difficulty walking. The patient denies vertigo, loss of vision, loss of consciousness, but does admit visual disturbance in the left side of the eye, focal paresthesias. No involuntary body movements or confusion. REVIEW OF SYSTEMS: All 14 systems were reviewed and were negative except pertinent positives and negatives mentioned in the HPI. PAST MEDICAL HISTORY: Prior CVA in August 2019, COPD, history of hepatitis C, depression, alcohol abuse, and nicotine abuse. PAST SURGICAL HISTORY: Aortic valve replacement, CABG x4. SOCIAL HISTORY: The patient has history of alcohol and nicotine abuse, but denies illegal drug abuse. FAMILY HISTORY: No family history of stroke. PHYSICAL EXAMINATION: GENERAL: Pleasant male, in no acute distress. HEENT: Head is normocephalic and atraumatic. Eyes, extraocular muscles intact. Visual acuity left 20/100, right 20/40. ENT, ear exam normal. NECK: No carotid bruit. CVS: Regular rate and rhythm. CHEST: Clear. ABDOMEN: Soft. NEUROLOGIC: Mental status; the patient is alert and oriented to person, place, and time. Speech is normal. Fund of knowledge is normal. Recent and remote memory are intact. Motor; muscle tone and bulk are normal. Cranial Nerves: 3-12 intact except optic -left homonymous heminopia. Strength, 4+/5 in the left upper and lower extremities, 5/5 in the right upper and lower extremities. Left pronator drift, Cerebeller: Dysmetria on the left, both with finger-nose testing and heel-knee- lopez testing. Reflexes symmetric bilaterally. Sensory, withdraws to nailbed pressure bilaterally. Gait deferred due to the patient's safety reasons. DIAGNOSTIC STUDIES: EKG did not show sinus bradycardia. Head CT did not reveal any acute intracranial pathology. ASSESSMENT AND PLAN: Mr. Abelino Zaidi is a 75-year-old male, who presented with left homonymous and hemianopia with left upper and lower extremity ataxia and mild weakness, most likely stroke, so he does have risk factors. In the emergency room, he was given aspirin and admitted for further evaluation. Recommend MRI of the brain to rule out acute intracranial pathology. Recommend 2D echo to rule out cardioembolic source. Recommend carotid Dopplers to rule out significant stenosis. Telemetry to rule out arrhythmias. Neuro checks every 4 hours. He was taking baby aspirin at home, so consider increasing to full dose aspirin 325 mg daily. Recommend checking his fasting lipid profile, TSH, hemoglobin A1c. Permissive control of blood pressure at this time. Strict control of blood glucose. Recommend high-intensity statin for secondary stroke prevention. Continue home medications. PT/OT/speech. DVT prophylaxis. We will continue to follow. Thank you for the consult. Job ID: [id number] [email or web address]
[2020-03-03] MEDS: Nicotine 14 MG PATCH TD SCH (16:03)
[2020-03-03] MEDS ORDERED: Ondansetron ODT 4 MG TAB SL PRN (16:37)
--- NOTE | 2020-03-03 18:16 | MRI ---
MRI BRAIN WITHOUT CONTRAST: Comparison: 08-01-19 History: Difficulty seeing out of left eye. History of strokes in the past. Technique: Multiplanar, multisequence MRI images were obtained of the brain without contrast. FINDINGS: There are scattered foci of high T2/FLAIR signal in the subcortical and periventricular white matter, likely secondary to small vessel ischemic disease. No restricted diffusion is seen to suggest an acu te infarction. There is encephalomalacia in the left parietooccipital region which has evolved since the prior examination. There is no evidence of hydrocephalus, acute intracranial hemorrhage, or extraaxial fluid collection. There is a small amount of hemosiderin deposition is seen in the area of encephalomalacia in the lef t parotid occipital region. The expected flow voids are present. The corpus callosum, pituitary, and craniocervical junction are unremarkable. Mucosal thickening is seen in the right maxillary sinus. The other paranasal sinuses and mastoid air cells are well aerated. IMPRESSION: 1. No evidence of acute intracranial abnormality. POS: EAA
--- NOTE | 2020-03-03 18:36 | HP ---
PRIMARY CARE PROVIDER: Dr. Mitchell Ansari. CHIEF COMPLAINT: Weakness and vision changes. HISTORY OF PRESENT ILLNESS: Mr. Zaidi is a pleasant 75-year-old gentleman, who was seen at [facility] on March 03, 2020. In August 2019, he had cerebrovascular accident with bleed. Since then, he has had generalized weakness and delayed speech. Most of the history was obtained from discussion with the patient's son, Gene, who is an ICU nurse here. He reports that his short-term memory has been affected. His peripheral vision in the right eye was affected from the stroke. He also is supposed to use a walker, but does not use walker. He reportedly fell a couple of times. Over the last 2 days, he had blurry vision in the left eye. His son also noticed that he was dragging his right foot. The patient also has a tremor in the right upper extremity, which has worsened over the last 3 to 4 days. He also appears to have developed a new left-sided facial droop. He was started on Zoloft 25 mg, which was subsequently increased to 50 mg daily. Over the last 1-1/2 weeks, he has been having hallucinations after starting Zoloft, so Zoloft was discontinued. The patient denies any chest pain. He denies any shortness of breath. He denies any fevers or chills. He reports difficulty walking. REVIEW OF SYSTEMS: All systems were reviewed and found to be negative except for the pertinent positives mentioned above. PAST MEDICAL HISTORY: CVA with hemorrhage, COPD, hepatitis C. SURGICAL HISTORY: Aortic valve replacement, coronary artery bypass graft surgery x4 vessels, plastic surgery to ear and face secondary to an accident. PSYCHIATRIC HISTORY: Depression. SOCIAL HISTORY: The patient reportedly drinks 4 to 6 beers a day. He smokes 10 to 12 cigarettes a day. He denies any recreational drug use. FAMILY HISTORY: No family history of premature coronary artery disease. ALLERGIES: CODEINE. CURRENT MEDICATIONS: 1. Digoxin 125 mcg daily. 2. Amiodarone 200 mg daily. 3. Atorvastatin 20 mg daily. 4. Aspirin 81 mg daily. 5. Xarelto 15 mg daily. 6. Coreg 3.125 mg two times a day. 7. Folic acid 1 mg daily. 8. Amlodipine 10 mg daily. CODE STATUS: I discussed his code status. He is DNAR. PHYSICAL EXAMINATION: GENERAL: On examination, Mr. Zaidi is awake and alert, not in acute distress. VITAL SIGNS: Blood pressure is 134/72, pulse 57, respiratory rate 16, and oxygen saturation 97% on room air. He is afebrile. EYES: No scleral icterus. No conjunctival pallor. ENT: Moist mucosal membranes. No oropharyngeal erythema or exudates. NECK: Supple, nontender. Trachea is midline. RESPIRATORY: Accessory muscles of breathing are not active. Chest wall movements are symmetric bilaterally. Lungs are clear to auscultation without wheeze, rhonchi, or crepitations. CARDIOVASCULAR: S1 and S2 are heard, regular. Peripheral pulses palpable. ABDOMEN: Soft, nontender. Bowel sounds are heard. NEUROLOGIC: The patient has left homonymous hemianopia. He has power of 4+/5 in the left upper and lower extremities, 5/5 on the right side. Deep tendon reflexes are 2+. Plantars downgoing bilaterally. SKIN: No rashes. MUSCULOSKELETAL: Power in the 4 extremities as described above. LYMPHATIC: No cervical lymphadenopathy. PSYCHIATRIC: Normal mood, flat affect. The patient is oriented to person and place, not to time. LABORATORY DATA AND IMAGING STUDIES: Mr. Zaidi is labs and investigations were reviewed. I reviewed his 12-lead electrocardiogram, which shows sinus bradycardia, no ST changes to suggest an acute coronary syndrome. I also reviewed his chest x-ray, which does not show any pulmonary infiltrates. Noncontrast CT scan of the brain did not show any acute intracranial process. He has normal white count, normal hemoglobin, normal platelet count. INR 2.5. Elevated creatinine of 1.86, creatinine was 1.35 on December 27, 2019, otherwise normal comprehensive metabolic profile. Normal troponin-I. Digoxin level elevated at 2.16. ASSESSMENT AND PLAN: Mr. Zaidi is a pleasant 75-year-old gentleman, who was seen at [facility] on March 03, 2020. His problem list includes: 1. Weakness: Mr. Zaidi is presenting with left-sided weakness and vision changes, most likely secondary to stroke. He will be admitted to the hospital for further management. I will start him on 325 mg aspirin daily and continue rivaroxaban. I will also check MRI brain and carotid Dopplers as well as 2D echocardiogram. Further management depending on the outcome of this test. 2. Coronary artery disease: This appears to be stable at this time, continue aspirin. 3. Tobacco abuse: The patient was counseled regarding tobacco cessation. Start nicotine replacement therapy. 4. Acute on chronic stage 3 renal failure: Provide gentle hydration and recheck creatinine. 5. Daily alcohol use: Start the patient on ASE protocol. 6. Digoxin toxicity: Hold few doses of digoxin and restart it at lower dose. Many thanks for allowing me to participate in your patient's care. Please feel free to contact me with any questions or concerns. LEVEL OF RISK: High. LEVEL OF COMPLEXITY: High. Job ID: [id number]
--- NOTE | 2020-03-03 19:24 | ULT ---
CAROTID ULTRASOUND: 03/03/29 COMPARISON: 08/02/19. HISTORY: CVA. TECHNIQUE: Multiplanar shelton scale and color Doppler images were obtained in a carotid ultrasound. Spectral clarice sis of the Doppler waveforms were performed. FINDINGS: A moderate amount of plaque is seen in the proximal bilateral internal carotid arteries. The Doppler waveforms are normal bilaterally. Peak systolic velocity in the right ICA is 62 cm/s. Peak systolic velocity in the right CCA is 57 cm/ s. The right ICA/CCA ratio is 1.1. Peak systolic velocity in the left ICA is 49 cm/s. Peak systolic velocity in the right CCA is 75 cm/s . The right ICA/CCA ratio is 0.7. Both vertebral arteries demonstrate antegrade flow without focal stenosis. IMPRESSION: No evidence of hemodynamically significant stenosis. POS: EAA
[2020-03-03] MEDS: Sodium Chloride 0.9% 1,000 ML IV SCH (19:34)
[2020-03-04] MEDS: Sodium Chloride 0.9% 1,000 ML IV SCH ×2 (04:17→20:33)
[2020-03-04 05:18] LABS: #Basophils 0.1 thou/uL (0.0-0.2); #Eosinphils 0.1 thou/uL (0.0-0.7); #Lymphocytes 1.3 thou/uL (1.20-3.40); #Monocytes 0.4 thou/uL (0.11-0.59); #Neutrophils 3.3 thou/uL (1.40-6.50); %Basophils 1.8 % (0.0-1.0); %Eosinophils 2.1 % (0.0-10.0); %Lymphocytes 24.9 % (21.0-51.0); %Neutrophils 63.2 % (42.0-75.0); Hemoglobin 13.3 g/dL (14.0-18.0); Mean Corpuscular HGB CONC 32.7 g/dL (32.0-36.0); Mean Corpuscular Hemoglobin 33.5 pg (27.0-31.0); Mean Platelet Volume 8.3 fL (7.4-10.4); Platelet Count 166 thou/uL (130-400); RBC Distribution Width 13.9 % (11.5-14.5); Red Blood Cell (RBC) Count 3.97 mill/uL (4.70-6.10); White Blood Cell (WBC) Count 5.1 thou/uL (4.8-10.8)
[2020-03-04 05:43] LABS: Anion Gap 10 mmol/L (10-20); BUN (Urea Nitrogen) 23 mg/dL (8.4-25.7); Calc. Creatinine Clearance 37 mL/min (70-130); Calcium 8.9 mg/dL (7.8-10.44); Carbon Dioxide 28 mmol/L (23-31); Cardiac Risk 2.2 (Less than 4.5); Chloride 107 mmol/L (98-107); Cholesterol 162 mg/dl (< 200 Desired); Estimated GFR-MDRD 48; Glucose 87 mg/dL (83-110); HDL Cholesterol 74 mg/dL (>60 Neg Risk); LDL Cholesterol, Calculated 74 mg/dL; Potassium 4.7 mmol/L (3.5-5.1); Sodium 140 mmol/L (136-145); Triglycerides 72 mg/dL (Less than 150)
[2020-03-04] MEDS ORDERED: Aspirin 81 mg Enteric Coated Tablet PO SCH (09:00)
[2020-03-04] MEDS: Aspirin 325 mg Enteric Coated Tablet PO SCH (09:14)
[2020-03-04] MEDS: Nicotine 14 MG PATCH TD SCH (14:15)
--- NOTE | 2020-03-04 14:40 | PDOC.HOSPP ---
- Subjective Encounter Date: 03/04/20 Encounter Time: 08:00 (\) Subjective: Pt seen for followup re: vision changes. Reports feeling better today. - Objective Vital Signs & Weight: Vital Signs (12 hours) Temp Pulse Pulse Pulse Resp BP BP 03/04/20 11:49 97.6 F 49 L 20 03/04/20 10:16 42 L 45 L 113/65 03/04/20 09:43 48 L 47 L 117/66 03/04/20 07:50 03/04/20 07:31 97.7 F 55 L 14 03/04/20 04:22 97.7 F 45 L 16 03/04/20 04:00 123/62 BP BP Pulse Ox 03/04/20 11:49 121/72 96 03/04/20 10:16 135/86 03/04/20 09:43 120/63 03/04/20 07:50 96 03/04/20 07:31 139/72 96 03/04/20 04:22 123/62 95 03/04/20 04:00 Weight Admit Weight 126 lb Weight 126 lb 6.4 oz I&O: 03/03/20 03/04/20 03/05/20 06:59 06:59 06:59 Intake Total 1918 600 Output Total 400 Balance 1518 600 Result Diagrams: 03/04/20 04:56 03/04/20 04:56 Additional Labs: Labs and MARs reviewed by me EKG Reviewed by me: Yes (Tele: sinus bradycardia) Hospitalist ROS - Review of Systems Eyes: reports: vision change Cardiovascular: denies: chest pain, palpitations, orthopnea, paroxysmal noc. dyspnea, edema, light headedness Gastrointestinal: denies: nausea, vomiting, abdominal pain, diarrhea, constipation, melena, hematochezia Neurological: denies: weakness, numbness, incoordination, change in speech, confusion, seizures - Medication Medications: Active Medications Generic Name Dose Route Start Last Admin Trade Name Freq PRN Reason Stop Dose Admin Aspirin 325 mg 03/04/20 09:00 03/04/20 09:14 Ecotrin PO 325 mg DAILY JUNAID Administration Sodium Chloride 1,000 mls @ 70 mls/hr 03/03/20 19:00 03/04/20 04:17 Normal Saline 0.9% IV 1,000 mls .[id number] JUNAID Administration Nicotine 14 mg 03/03/20 15:00 03/04/20 14:15 Nicoderm Patch TD 14 mg Q24HR JUNAID Administration - Exam General Appearance: awake alert Eye: anicteric sclera ENT: moist mucosa Neck: supple, symmetric, no thyromegaly Heart - other findings: S1, S2, reg, chantal Respiratory: CTAB Gastrointestinal: soft, non-tender, normal bowel sounds Neurological: vision deficit Psychiatric: normal affect, normal behavior Hosp A/P (1) Vision changes Code(s): H53.9 - UNSPECIFIED VISUAL DISTURBANCE Status: Acute (2) COPD (chronic obstructive pulmonary disease) Status: Chronic (3) HTN (hypertension) Code(s): I10 - ESSENTIAL (PRIMARY) HYPERTENSION Status: Chronic Qualifiers: Hypertension type: essential hypertension Qualified Code(s): I10 - Essential (primary) hypertension (4) Paroxysmal atrial fibrillation Code(s): I48.0 - PAROXYSMAL ATRIAL FIBRILLATION Status: Chronic (5) Tobacco abuse Code(s): Z72.0 - TOBACCO USE Status: Chronic - Plan consult ophthalmology re: vision changes. MRI brain nil acute. Carotid dopplers unremarkable. Continue nicotine patch. Continue ASE protocol. COPD stable. Depression mild, stable.
[2020-03-05 05:10] LABS: #Eosinphils 0.2 thou/uL (0.0-0.7); #Lymphocytes 1.4 thou/uL (1.20-3.40); #Monocytes 0.5 thou/uL (0.11-0.59); #Neutrophils 3.6 thou/uL (1.40-6.50); %Basophils 0.8 % (0.0-1.0); %Eosinophils 3.9 % (0.0-10.0); %Lymphocytes 24.3 % (21.0-51.0); %Monocytes 9.3 % (0.0-10.0); %Neutrophils 61.8 % (42.0-75.0); Mean Corpuscular HGB CONC 32.9 g/dL (32.0-36.0); Mean Corpuscular Hemoglobin 33.7 pg (27.0-31.0); Mean Platelet Volume 8.2 fL (7.4-10.4); Platelet Count 151 thou/uL (130-400); RBC Distribution Width 13.8 % (11.5-14.5); Red Blood Cell (RBC) Count 3.86 mill/uL (4.70-6.10); White Blood Cell (WBC) Count 5.8 thou/uL (4.8-10.8)
[2020-03-05 05:29] LABS: Anion Gap 10 mmol/L (10-20); BUN (Urea Nitrogen) 21 mg/dL (8.4-25.7); Calc. Creatinine Clearance 45 mL/min (70-130); Calcium 8.6 mg/dL (7.8-10.44); Carbon Dioxide 23 mmol/L (23-31); Chloride 110 mmol/L (98-107); Estimated GFR-MDRD 60; Glucose 85 mg/dL (83-110); Potassium 4.5 mmol/L (3.5-5.1); Sodium 138 mmol/L (136-145)
[2020-03-05 07:42] VITALS: BP 140/76; TEMP 97.5
[2020-03-05] MEDS: Aspirin 325 mg Enteric Coated Tablet PO SCH (08:33)
--- NOTE | 2020-03-05 14:08 | DIS ---
DATE OF ADMISSION: 03/03/2020 DATE OF DISCHARGE: 03/05/2020 PRIMARY CARE PROVIDER: Mitchell Ansari MD DISCHARGE DIAGNOSES: 1. Transient ischemic attack. 2. Vision change. 3. Vitreous hemorrhage. 4. Digoxin toxicity. CONDITION: Condition of the patient on the day of discharge: Stable. I assessed Mr. Zaidi on the day of discharge. He denies any chest pain or shortness of breath. Vital signs are stable. S1 and S2 are heard, regular. Lungs are clear to auscultation bilaterally. CONSULTATIONS DURING THIS HOSPITALIZATION: 1. Neurology, Dr. Burgos. 2. Ophthalmology, Dr. Pearce. DISCHARGE MEDICATIONS: The patient has been advised to hold rivaroxaban until cleared by Ophthalmology Service. Digoxin dose has been decreased to 62.5 mcg daily. Otherwise, no change was made to his pre-admission home medications, which include amiodarone 200 mg daily, amlodipine 10 mg daily, Coreg 3.125 mg 2 times a day, nicotine 14 mg daily patch, Lipitor 40 mg at bedtime, and aspirin dose has been increased to 325 mg daily. HOSPITAL COURSE: Mr. Zaidi is a pleasant 75-year-old gentleman, who was admitted to [facility] on March 03, 2020, for left eye vision changes as well as left-sided weakness. He was seen by Neurology Service. Aspirin dose was increased to 325 mg daily. MRI of the brain did not show any acute intracranial abnormality. Carotid Dopplers did not show any hemodynamically significant stenosis. 2D echocardiogram showed left ventricular ejection fraction of 55% to 60%, moderately dilated left atrium, mild mitral regurgitation, and mitral annular calcification. He was seen by Ophthalmology service. He has been diagnosed with vitreous hemorrhage of the left eye. He has been referred to Dr. Tong's office for further management. Many thanks for allowing me to participate in your patient's care. Please feel free to contact me with any questions or concerns. POST-ACUTE CARE FOLLOWUP: With primary care provider in [address] Tong within 1 week. DIET: Heart healthy. ACTIVITY: As tolerated. DISCHARGE DESTINATION: Home. TIME SPENT: Total amount of time spent in coordinating this discharge: 25 minutes. Job ID: [id number]
--- NOTE | 2020-03-06 06:21 | CON ---
Job ID: [id number] MTDD
--- NOTE | 2020-03-06 15:05 | CON ---
DATE OF CONSULTATION: 03/04/2020 TIME OF CONSULTATION: About 2:00 p.m. CHIEF COMPLAINT: Sudden painless blurring of vision of the left eye, made by dots floating across the field of vision of the left eye 4 days prior to admission. HISTORY OF PRESENT ILLNESS: The patient had a hemorrhagic CVA in August or July of 2019 with subsequent tremor of his right arm and his awareness of the loss of the lateral field of the vision of the right eye. The history and physical was reviewed. PAST MEDICAL HISTORY: Includes aortic valve replacement and coronary artery bypass graft in the past. SOCIAL HISTORY: He drinks 4 to 6 beers per day and smokes 10 to 12 cigarettes per day. PHYSICAL EXAMINATION: The patient's visual acuity with his current glasses at near is J-2 with the right eye and 20/800 equivalent with the left eye. On confrontation visual field testing, he has loss of the right field of both eyes. He was previously unaware of the right field loss of his left eye. His pupils are equal and reactive without a detectable afferent pupillary defect. On motility testing, his eyes are aligned with full range of motion. Intra-ocular pressure with the Gee-Pen of the right eye is 14, 21, and 6 mmHg and for the left eye is 11, 15, and 14 mmHg. The pupils were dilated with Lino-Synephrine and Mydriacyl. Anterior segment exam was normal with clear corneas and probably some nuclear sclerosis, which is symmetric. The fundus of the right eye shows all vessels are patent and the retina is attached without any areas of hemorrhage or edema. Examination of the left eye has a poor view into the eye. The retina is grossly attached. ASSESSMENT: 1. Right homonymous hemianopia secondary to his previous cerebrovascular in July or August 2019. 2. His current symptoms are most likely secondary to a vitreous hemorrhage of the left eye. PLAN: He needs a retina specialist exam, better done in the office and he was given the names of Dr. Tong and Dr. Wallace. He was free to be discharged at this time. Job ID: [id number]
--- NOTE | 2020-03-09 07:51 | PQF ---
Date: 03-09-20 ATTN: DR. RAMY CAMPBELL Please exercise your independent, professional judgment in responding to the clarification form. Clinical indicators are provided on the bottom of this form for your review Please check appropriate box(s): [ ] Protein Calorie Malnutrition: [ ] Mild [ x ] Moderate [ ] Severe [ ] Other Malnutrition (please specify) __ [ ] Cachexia [ ] Other diagnosis [ ] Unable to determine In addition, please specify: Present on Admission (POA): [ x ] Yes [ ] No [ ] Unable to determine CLINICAL INDICATORS - SIGNS / SYMPTOMS / LABS / RESULTS AND LOCATION IN MR: BMI: 18 HOME DEPOT REP CONSULT 03-04-20: He reported a UBW of ~130# last week. A year ago, he reported weighing ~140#. The patient was observed to be missing teeth, but denied trouble chewing. moderate temporal muscle wasting observed, minimal intercostal fat observed; Mild to moderate intercostal fat observed with moderate muscle wasting observed to the temporal area suggestive of non-severe malnutrition in the context of a chronic disease. RISK FACTORS / RESULTS AND LOCATION IN MR: HOME DEPOT REP CONSULT 03-04-20: PMH: CVA, COD, Hep C, AVR, CABG x 4, depression TREATMENT / RESULTS AND LOCATION IN MR: HOME DEPOT REP CONSULT 03-04-20: 1) Continue Heart Healthy diet with consistency per NAIL STICKER recommendation. 2) Supplement with Ensure Enlive once daily. Moderate Malnutrition (in acute illness) Energy Intake: <75% of estimated energy requirement for > 7 days Weight Loss: 1-2%/1 week; 5%/ 1 month; 7.5%/3 months Other: mild body fat loss; mild muscle mass loss; mild fluid accumulation; Severe Malnutrition (in acute illness) Energy Intake: < 50% of estimated energy requirement for > 5 days Weight Loss: >1-2%/1 week; >5%/1 month; >7.5%/3 months Other: moderate body fat loss; moderate muscle mass loss; moderate- severe fluid accumulation; measurably reduced traveling accountant strength Moderate Malnutrition (in chronic illness) Energy Intake: <75% of estimated energy requirement for >1 month Weight Loss: 5%/1 month; 7.5%/3 months; 10%/6 months; 20%/1 year Other: mild body fat loss; mild muscle mass loss; mild fluid accumulation Severe Malnutrition (in chronic illness) Energy Intake: <75% of estimated energy requirement for >1 month Weight Loss: >5%/1 month; >7.5%/3 months; >10%/6 months; >20%/1 year Other: severe body fat loss; severe muscle mass loss; severe fluid accumulation ; measurably reduced traveling accountant strength (This form is maintained as a part of the permanent medical record) 2014 [employer]. All Rights Reserved KAY [email or web address] [facility]
== END 2020-03-05 10:34 | disposition home or self-care (01) | DRG 125 ==
LOC: ERS 09:29 → 2SE 13:48
PROVIDERS: ADMIT Internal Medicine; ATTEND Internal Medicine
DX: H43.12 Vitreous hemorrhage, left eye (principal); G45.9 Transient cerebral ischemic attack, unspecified; G81.94 Hemiplegia, unspecified affecting left nondominant side; N17.9 Acute kidney failure, unspecified; F32.0 Major depressive disorder, single episode, mild; J44.9 Chronic obstructive pulmonary disease, unspecified; B18.2 Chronic viral hepatitis C; F17.210 Nicotine dependence, cigarettes, uncomplicated; I25.10 Atherosclerotic heart disease of native coronary artery without angina pectoris; N18.3 Chronic kidney disease, stage 3 (moderate); I12.9 Hypertensive chronic kidney disease with stage 1 through stage 4 chronic kidney disease, or unspecified chronic kidney disease; H53.461 Homonymous bilateral field defects, right side; I48.0 Paroxysmal atrial fibrillation; T46.0X5A Adverse effect of cardiac-stimulant glycosides and drugs of similar action, initial encounter; Z95.2 Presence of prosthetic heart valve; Z95.1 Presence of aortocoronary bypass graft; Z88.5 Allergy status to narcotic agent; Z79.01 Long term (current) use of anticoagulants; Z79.899 Other long term (current) drug therapy; I69.198 Other sequelae of nontraumatic intracerebral hemorrhage
CPT/HCPCS: 36415; 70450; 70551; 71045; 80048; 80053; 80061; 80162; 82550; 84484; 85025; 85610; 85730; 93005; 93306; 93880; 96374; J2405

== ENCOUNTER 2020-03-28 09:43 | Outpatient (CLI) | payer MEDICARE, BC, OTHER ==
[2020-03-29 12:47] LABS: SARS-CoV-2 MS2 Positive; SARS-CoV-2 N Gene Negative; SARS-CoV-2 S Gene Negative; SARS-CoV-2 orf1ab Negative
== END 2020-03-28 09:44 | disposition home or self-care (01) ==
LOC: LABBT 09:43
PROVIDERS: ATTEND Ophthalmology Retina Specialist
DX: Z01.812 Encounter for preprocedural laboratory examination (principal); Z11.59 Encounter for screening for other viral diseases; H43.12 Vitreous hemorrhage, left eye
CPT/HCPCS: 87635; U0003

== ENCOUNTER 2020-03-30 07:12 | Day surgery (SDC) | payer MEDICARE, BC ==
[2020-03-28 12:04] VITALS: BMI 18.6
[~2020-03-30 07:12] MED LIST: EPINEPHrine 0.3 MG in Ophthalmic Irrigation Solution 500 ML IRR SCH; Fentanyl 100 MCG/2 ML VIAL ONE; Midazolam HCl 2 mg/2 ml Vial ONE
[2020-03-30] MEDS ORDERED: Cyclopentolate 1% Opth Drop 2 ML BOT ONE (07:55)
[2020-03-30] MEDS ORDERED: Phenylephrine 2.5% Ophth Soln 5 ML BOT ONE (07:55)
[2020-03-30] MEDS ORDERED: PROPOFOL 200 MG/20 ML VIAL ONE (11:51)
[2020-03-30] MEDS ORDERED: Maxitrol 0.1% Opth Oint 3.5 GM TUBE ONE (11:51)
[2020-03-30] MEDS ORDERED: CEFAZOLIN 1 GM VIAL ONE (11:51)
[2020-03-30] MEDS ORDERED: Bupivacaine PF 0.75% SDV 10 ML ONE (11:51)
[2020-03-30] MEDS ORDERED: Lidocaine 1% PF 5 ML VIAL ONE (11:51)
[2020-03-30] MEDS ORDERED: Triamcinolone 40 MG/ML VIAL ONE (11:51)
[2020-03-30] MEDS ORDERED: Lidocaine 4% PF 5 ML AMP ONE (11:51)
--- NOTE | 2020-04-03 10:47 | OP ---
DATE OF PROCEDURE: 03/30/2020 PREOPERATIVE DIAGNOSIS: Vitreous hemorrhage, left eye. POSTOPERATIVE DIAGNOSIS: Vitreous hemorrhage, left eye. PROCEDURES PERFORMED: Pars plana vitrectomy and panretinal photocoagulation, left eye. ANESTHESIA: Local with monitored anesthesia care. DESCRIPTION OF PROCEDURE: The patient was identified in the preoperative holding area. Appropriate informed consent for the planned surgical procedure on the left eye had been obtained. The patient was transported to the operative suite. Appropriate cardiopulmonary monitoring was established. Local anesthesia obtained using retrobulbar modified Van Lint lid block using 50:50 mixture of 4% lidocaine and 0.75% bupivacaine. The patient was prepped and draped in usual sterile manner for ophthalmic surgery on the left eye. Lid speculum was placed in the left eye. A 27-gauge trocar was placed in the conjunctiva and sclera superotemporally, inferotemporally, and supranasally. Infusion line was placed inferotemporally. Light pipe vitreous cutter enters to the eye. Core vitrectomy was performed removing significant amount of vitreous hemorrhage. When the vitreous hemorrhage was cleared, it was noted that there was an area of ischemia and neovascularization along the supratemporal arcade and superiorly. This area was treated with panretinal photocoagulation. No other holes, breaks, or tears were identified. Trocars were removed. Eye was noted to retain pressure well. Retrobulbar Kenalog and subconjunctival Ancef were placed. Antibiotic ointment was placed. Eye was patched and shielded. The patient was taken to postoperative recovery unit in good condition having suffered no immediate perioperative complications. The patient was instructed to keep patch shield on, avoid lifting or bending. Followup appointment with Dr. Tong. Job ID: [id number]
== END 2020-03-30 10:40 | disposition home or self-care (01) ==
LOC: SDC 07:12
PROVIDERS: ATTEND Ophthalmology Retina Specialist
PROC: 08T53ZZ Resection of Left Vitreous, Percutaneous Approach (ICD-10-PCS; principal; 2020-03-30)
PROC: 08QF3ZZ Repair Left Retina, Percutaneous Approach (ICD-10-PCS; 2020-03-30)
DX: H43.12 Vitreous hemorrhage, left eye (principal); Z79.01 Long term (current) use of anticoagulants; Z79.82 Long term (current) use of aspirin; Z79.899 Other long term (current) drug therapy; Z88.5 Allergy status to narcotic agent; Z95.1 Presence of aortocoronary bypass graft
CPT/HCPCS: J0171; J0690; J2001; J2250; J2704; J3010; J3301; J3490

== ENCOUNTER 2020-09-26 20:36 | Observation (INO) | payer MEDICARE, BC ==
[2020-09-26] MEDS ORDERED: Albuterol 200 PUFF (6.7GM INHALER) ONE (21:02)
[2020-09-26 21:14] LABS: #Basophils 0.1 thou/uL (0.0-0.2); #Eosinphils 0.1 thou/uL (0.0-0.7); #Lymphocytes 1.2 thou/uL (1.20-3.40); #Monocytes 0.8 thou/uL (0.11-0.59); #Neutrophils 7.5 thou/uL (1.40-6.50); %Basophils 0.6 % (0.0-1.0); %Eosinophils 0.9 % (0.0-10.0); %Lymphocytes 12.3 % (21.0-51.0); %Monocytes 8.1 % (0.0-10.0); %Neutrophils 78.1 % (42.0-75.0); Hemoglobin 11.4 g/dL (14.0-18.0); Mean Corpuscular Hemoglobin 34.6 pg (27.0-31.0); Mean Platelet Volume 7.8 fL (7.4-10.4); Platelet Count 145 thou/uL (130-400); RBC Distribution Width 13.4 % (11.5-14.5); White Blood Cell (WBC) Count 9.5 thou/uL (4.8-10.8)
--- NOTE | 2020-09-26 21:15 | RAD ---
Exam: Chest one view HISTORY:Shortness of breath. Chest pain. Comparison: 03/03/2020 FINDINGS: Cardiac silhouette:Upper normal cardiac silhouette. Stable sternotomy wires. Aorta: Atherosclerotic Pulmonary vessels: Normal Costophrenic angles: Clear LUNGS: Hyperinflation with chronic changes. No masses or consolidation. Pneumothorax: None Osseous abnormalities: None IMPRESSION: 1. Atherosclerosis 2. COPD. Hyperinflation. 3. Diffuse bony mineralization.
[2020-09-26 21:42] LABS: ALT (SGPT) 10 U/L (8-55); AST (SGOT) 25 U/L (5-34); Albumin 4.1 g/dL (3.4-4.8); Alkaline Phosphatase 59 U/L (40-110); Anion Gap 18 mmol/L (10-20); BUN (Urea Nitrogen) 26 mg/dL (8.4-25.7); Bilirubin, Total 0.5 mg/dL (0.2-1.2); CK (CPK) 65 U/L (30-200); Calc. Creatinine Clearance 0 mL/min (70-130); Calcium 8.6 mg/dL (7.8-10.44); Carbon Dioxide 20 mmol/L (23-31); Chloride 101 mmol/L (98-107); Globulin 2.3 g/dL (2.4-3.5); Glucose 105 mg/dL (83-110); Lipase 43 U/L (8-78); Potassium 3.4 mmol/L (3.5-5.1); Protein, Total 6.4 g/dL (5.8-8.1); Sodium 136 mmol/L (136-145)
[2020-09-26] MEDS ORDERED: Ondansetron ODT 4 MG TAB PO PRN (23:53)
[2020-09-26] MEDS ORDERED: Ondansetron PF 4 MG/2 ML Vial IVP PRN (23:53)
[2020-09-27] MEDS ORDERED: Nitroglycerin 0.4 MG TAB (25 Tab Bottle) SL PRN
--- NOTE | 2020-09-27 00:22 | PDOC.HHP ---
Hospitalist HPI - History of Present Illness chest pain History of Present Illness: This is a 75-year-old male patient with a history of CVA with intracerebral bleed, COPD, aortic valve replacement and currently status post CABG who presents with ongoing chest pain for a day. Patient noted that he woke up in the morning to the pain which is central question and has been persistent only to relieve any presented here and received aspirin and nitroglycerin on his EMS transport. By the time he got here the pain had reduced to 0-1 over 10. He denied any ideation associated dizziness are all nausea. No relieving factors. At presentation blood pressure was 119/62, pulse 56, respiratory rate 22, temperature 97.9 and saturating 98% on room air. His labs showed hypokalemia of 3.4, creatinine 1.61 around his baseline, BNP was 439 and troponin was 0.01. Chest x-ray showed lung hyper inflation however no effusion or consolidation. EKG showed no concerning ST or T wave changes. He was given 2 puffs of Proventil Hospitalist ROS - Review of Systems Constitutional: denies: fever, chills, sweats, weakness Respiratory: reports: cough, dry, shortness of breath. denies: hemoptysis Cardiovascular: reports: chest pain, palpitations. denies: orthopnea, paroxysmal noc. dyspnea, edema Gastrointestinal: denies: nausea, vomiting, abdominal pain, diarrhea Genitourinary: denies: dysuria, frequency, incontinence, hematuria Musculoskeletal: denies: neck pain, shoulder pain, arm pain, back pain Neurological: denies: weakness, numbness, incoordination, change in speech All other systems reviewed; all pertinent +/- noted in HPI/Subj - Medication Medications: Home medications: Can refer to ambulatory list. Allergies: Codeine Hospitalist History - Past Medical History Hepatobiliary: reports: Hep A/B/C (Hep C) Psych: reports: Depression Other Medical History: Coronary artery disease, COPD, stroke, CKD - Past Surgical History Past Surgical History: reports: CABG (with MVR), Other (ligation atrial appendage left ear amputation and repair) Other Surgical History: CABG, aortic valve replacement - Family History Family History: reports: no pertinent history - Social History Smoking Status: Current every day smoker Alcohol: reports: None, Heavy (drinks beer daily < 5 drinks/day) Drugs: reports: none Living Situation: [employer] Occupation: Lives in [facility], 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 - Exam General Appearance: awake alert Eye: PERRL, anicteric sclera ENT: normocephalic atraumatic, no oropharyngeal lesions Heart: RRR, no murmur, no gallops, no rubs Respiratory: CTAB, no wheezes, no rales, no ronchi Gastrointestinal: soft, non-tender, non-distended, normal bowel sounds Extremities: no cyanosis, no clubbing, no edema Neurological: cranial nerve grossly intact, normal sensation to touch, no focal deficits Psychiatric: normal affect, normal behavior, A&O x 3 Hospitalist Results - Labs Result Diagrams: 09/27/20 01:53 09/27/20 01:53 Lab results: WBC 9.5 thou/uL (4.8-10.8) 09/26/20 21:02 Hgb 11.4 g/dL (14.0-18.0) L 09/26/20 21:02 Hct 34.7 % (42.0-52.0) L 09/26/20 21:02 MCV 105.0 fL (78.0-98.0) H 09/26/20 21:02 Plt Count 145 thou/uL (130-400) 09/26/20 21:02 Neutrophils % 78.1 % (42.0-75.0) H 09/26/20 21:02 Sodium 136 mmol/L (136-145) 09/26/20 21:02 Potassium 3.4 mmol/L (3.5-5.1) L 09/26/20 21:02 Chloride 101 mmol/L (98-107) 09/26/20 21:02 Carbon Dioxide 20 mmol/L (23-31) L 09/26/20 21:02 BUN 26 mg/dL (8.4-25.7) H 09/26/20 21:02 Creatinine 1.63 mg/dL (0.7-1.3) H 09/26/20 21:02 Glucose 105 mg/dL (83-110) 09/26/20 21:02 Calcium 8.6 mg/dL (7.8-10.44) 09/26/20 21:02 Total Bilirubin 0.5 mg/dL (0.2-1.2) 09/26/20 21:02 AST 25 U/L (5-34) 09/26/20 21:02 ALT 10 U/L (8-55) 09/26/20 21:02 Alkaline Phosphatase 59 U/L (40-110) 09/26/20 21:02 Creatine Kinase 65 U/L (30-200) 09/26/20 21:02 Troponin I Less than 0.010 ng/mL (< 0.028) 09/26/20 21: B-Natriuretic Peptide 439.5 pg/mL (0-100) H 09/26/20 21:02 Serum Total Protein 6.4 g/dL (5.8-8.1) 09/26/20 21: Albumin 4.1 g/dL (3.4-4.8) 09/26/20 21: Lipase 43 U/L (8-78) 09/26/20 21: Hospitalist H&P A/P - Plan Plan: This is a 75-year-old male patient with a history of stroke, coronary artery disease at this post CABG, CKD. He is on Xarelto indication for which he does not remember.Likely A. fib He presented with chest pain surekha to ACS which was relieved by nitroglycerin and aspirin however to the ED per EMS. Chest pain Likely unstable angina. Relieved with aspirin and nitroglycerin We will admit and monitor on telemetry As needed nitroglycerincontinue aspirin Given history of CABG in stroke we will keep him n.p.o. for cardiology evaluation in a.m. COPDpossible mild exacerbation Symptoms improved with Proventil We will do duo nebs as needed and scheduled To consider steroids and antibiotics if becomes overnight. Chronic anticoagulation Is on Xareltoto be verified Possibly for A. fib CAD status post CABG Continue aspirin/Plavix DVT prophylaxisLovenox
[2020-09-27 02:04] LABS: #Eosinphils 0.2 thou/uL (0.0-0.7); #Lymphocytes 1.3 thou/uL (1.20-3.40); #Monocytes 0.8 thou/uL (0.11-0.59); #Neutrophils 6.1 thou/uL (1.40-6.50); %Basophils 0.5 % (0.0-1.0); %Eosinophils 1.8 % (0.0-10.0); %Lymphocytes 15.9 % (21.0-51.0); %Monocytes 9.3 % (0.0-10.0); %Neutrophils 72.4 % (42.0-75.0); Mean Corpuscular HGB CONC 33.1 g/dL (32.0-36.0); Mean Corpuscular Hemoglobin 34.6 pg (27.0-31.0); Mean Platelet Volume 7.8 fL (7.4-10.4); Platelet Count 150 thou/uL (130-400); RBC Distribution Width 13.5 % (11.5-14.5); Red Blood Cell (RBC) Count 3.46 mill/uL (4.70-6.10); White Blood Cell (WBC) Count 8.4 thou/uL (4.8-10.8)
[2020-09-27 02:36] LABS: Anion Gap 16 mmol/L (10-20); BUN (Urea Nitrogen) 23 mg/dL (8.4-25.7); Calc. Creatinine Clearance 0 mL/min (70-130); Carbon Dioxide 24 mmol/L (23-31); Chloride 103 mmol/L (98-107); Glucose 91 mg/dL (83-110); Sodium 139 mmol/L (136-145)
[2020-09-27 03:10] LABS: Troponin I Less than 0.010 ng/mL (< 0.028)
[2020-09-27 06:56] LABS: SARS-CoV-2 MS2 Positive; SARS-CoV-2 N Gene Negative; SARS-CoV-2 S Gene Negative; SARS-CoV-2 by NAA Not Detected (NotDetected); SARS-CoV-2 orf1ab Negative
[2020-09-27 08:01] LABS: Troponin I 0.011 ng/mL (< 0.028)
[2020-09-27] MEDS ORDERED: Non-Formulary Item 1 EACH (Sertraline Hcl [Sertraline Hcl] 50 MG Tablet) PO SCH (09:00)
[2020-09-27] MEDS ORDERED: Aspirin 81 mg Enteric Coated Tablet PO SCH (09:00)
[2020-09-27] MEDS ORDERED: Furosemide 20 MG TAB PO SCH (10:15)
[2020-09-27] MEDS ORDERED: Aspirin Chewable 81 MG TAB ONE (10:35)
--- NOTE | 2020-09-27 12:40 | CON ---
DATE OF CONSULTATION: HISTORY OF PRESENT ILLNESS: Abelino Zaidi is a 75-year-old white male, who initially was referred for leg pain in August 2007. He had normal peripheral pulses and underwent lower extremity vascular Doppler at [facility], which did not reveal any significant stenosis. He then presented in March 2019 complaining of intermittent episodes of shortness of breath. Whenever he would become short of breath, he felt his heart beating very rapidly. Initially it was felt this may have been due to anxiety or panic attacks after losing his 4 years previously and his son 4 months prior to that. He was placed on anxiolytics and Seroquel. However, he continued to have episodes of shortness of breath and feeling his heart beating very rapidly. He ultimately came to the emergency room, was found to be in atrial fibrillation with fast ventricular response. He was given intravenous digoxin and amiodarone and converted to sinus rhythm. Echo revealed moderate bilateral pleural effusions, severe left ventricular dysfunction with ejection fraction of 25% to 30%, moderately enlarged right ventricle, mild left atrial enlargement, mild right atrial enlargement. He had severe mitral regurgitation. He was diuresed and eventually underwent cardiac catheterization. This revealed severe global left ventricular hypokinesis with an ejection fraction of 15% to 20% and severe mitral regurgitation. There was a 60% left main, but otherwise unremarkable coronary arteries. He underwent transesophageal echo, which revealed poor coaptation of the posterior leaflet of the mitral valve with severe mitral regurgitation. There was no mention of any left atrial appendage thrombus. He underwent mitral valve repair with placement of an annuloplasty ring, CABG x2 with GUZMÁN to the LAD and saphenous vein graft to the first obtuse marginal, epicardial maze procedure and ligation of left atrial appendage. Postoperatively, he continued to have some episodes of atrial fibrillation and amiodarone was continued. At the time of discharge, he was fitted with a LifeVest. He was placed on low-dose carvedilol. Christopher and ARB drugs were not used due to his renal insufficiency. Also, decision was made not to anticoagulate him due to maintaining sinus rhythm and no evidence of left atrial appendage thrombus at the time of LILIAM prior to surgery, ligation of the left atrial appendage and maze procedure. Also, there was concern about his frailty and history of ETOH use. He was seen for followup on May 12, 2019, doing very well at that time and was seen by my nurse practitioner in May 2019. He was then admitted in July 2019 with mental status changes and found to have a large acute infarction of the left posterior cerebral artery distribution. There were three separate foci of hemorrhage in this area. There was some concern that this may have been a tumor; however, ultimately it was felt this was a stroke with hemorrhagic conversion of the acute infarct. Mr. Zaidi had no chest pain or shortness of breath at that time. He had stopped wearing his LifeVest 2-3 weeks prior to that due to skin irritation. During that admission, he underwent echocardiography. This surprisingly revealed that his ejection fraction improved to 50% to 55%. The left atrium was mildly dilated. There was a mitral valve annuloplasty ring in place, [id number] mitral regurgitation, mild tricuspid regurgitation, mild pulmonic insufficiency. Also during that admission, he underwent transesophageal echo, which revealed mild decreased left ventricular systolic function, biatrial enlargement, mitral valve repair with moderate mitral regurgitation, mild tricuspid regurgitation, and mild aortic regurgitation. The left atrial appendage was not completely ligated and clot was noted in the left atrial appendage. It was felt that he probably had an embolic event from his left atrial appendage. Ultimately as an outpatient, he was placed on Xarelto. This was stated afte discharge due to hemorrhagic conversion of the infarct. He was again admitted in November 2019 when he began to develop chest pressure and shortness of breath. The chest pain resolved in the emergency room without any intervention. He did receive DuoNebs when he arrived in the emergency room. Troponin I was negative x3. He was placed on DuoNebs and steroids and his shortness of breath improved. It was felt to be due to a COPD exacerbation. He again was admitted in February 2020 with a transient ischemic attack. He had left eye visual changes as well as left-sided weakness. Aspirin was increased to 325 mg daily. MRI of the brain did not show any acute abnormalities. Carotid Dopplers did not show any significant stenosis. A 2D echo showed ejection fraction of 55% to 60%. He was diagnosed with vitreous hemorrhage of the left eye. In August 2020, he was seen in the office and complained of increased shortness of breath. He was placed on furosemide 20 mg q.a.m. He last had a telemedicine visit on 09/25/2020 and he had less peripheral edema with the furosemide. Amlodipine was reduced to 5 mg daily due to the peripheral edema. We are going to monitor his blood pressure. This was at 10 mg daily. He now complains of chest discomfort. He had onset yesterday morning when he awoke. This was a pressure in his chest just to the right of the sternum. This was present all day until he came to the emergency room. He did complain of increased shortness of breath yesterday as well. He denied any pleuritic component of the pain. He continues to smoke 4-5 cigarettes per day, although probably smokes more. In the emergency room, he was given 2 puffs of Proventil inhaler and his chest pressure seemed to resolve and shortness of breath slightly improved. At the present time, he denies any chest discomfort. Cardiac enzymes have been totally normal. PAST MEDICAL HISTORY: Hypertension, COPD, hepatitis C, treated with medication for one year, hypercholesterolemia, chronic kidney disease, coronary artery disease, history of atrial fibrillation, severe mitral regurgitation with mitral valve repair. PAST SURGICAL HISTORY: CABG x2 with GUZMÁN to LAD and vein graft to the first obtuse marginal, as well as mitral valve repair with annuloplasty ring placed, maze procedure, and left atrial appendage ligation (left atrial appendage was opened with thrombus present on his last LILIAM), facial surgery after an accident. MEDICATIONS: 1. Amiodarone 200 mg daily. 2. Amlodipine 10 mg-one half daily. 3. Aspirin 325 daily. 4. Atorvastatin 40 at bedtime. 5. Carvedilol 3.125 b.i.d. 6. Digoxin one half of 125 mcg daily. 7. Folvite 1 mg daily. 8. Xarelto 15 mg daily. 9. Sertraline 25 daily. ALLERGIES: CODEINE. SOCIAL HISTORY: Smoked one pack per day in the past and continues to smoke 4-5 cigarettes per day or more. He drinks five or six beers per day. FAMILY HISTORY: Negative for coronary artery disease. REVIEW OF SYSTEMS: Ten-point review of systems is otherwise unremarkable. PHYSICAL EXAMINATION: VITAL SIGNS: Blood pressure 140/76, pulse of 53, sinus rhythm. HEENT: PERRL. NECK: Supple. CHEST: Reveals expiratory wheezing. CARDIOVASCULAR: S1, S2 normal without any S3, S4 or murmurs. Carotid upstrokes normal without bruits. ABDOMEN: Normal bowel sounds without tenderness or organomegaly. EXTREMITIES: Revealed no clubbing, cyanosis, or edema. MUSCULOSKELETAL: Revealed no palpable chest wall tenderness. NEUROLOGIC: Grossly intact. SKIN: Warm and dry. LABORATORY DATA: EKG reveals sinus bradycardia with rate of 57 per minute and findings of a septal infarct, left axis deviation. There is no change on his EKG compared to one from the office on September 11, 2020. Hemoglobin 12.0, hematocrit 36.2, white count 8400, platelets 150,000. Sodium 139, potassium 4.0, chloride 103, carbon dioxide 24, BUN 23, creatinine 1.42. BNP 439.5. Troponin I is normal x3. Lipase is normal. Iron is normal, TIBC low at 253. TSH in August was normal. Chest x-ray reveals COPD with hyperinflation. IMPRESSION: 1. Noncardiac chest pain, probably related to his chronic obstructive pulmonary disease. 2. Chronic obstructive pulmonary disease exacerbation with expiratory wheezing as well as increased shortness of breath yesterday. 3. Patient continues to smoke. 4. Status post coronary artery bypass grafting x2 with mitral valve repair, maze procedure and left atrial appendage ligation. However, the left atrial appendage was open with thrombus present on last LILIAM and he was resumed on anticoagulation. 5. Acute systolic congestive heart failure. On catheterization, he had ejection fraction of 15% to 20%. On his last echo from 2 weeks ago, his ejection fraction was 55% to 60%. 6. Severe mitral regurgitation, status post placement of mitral valve annular plasty and mitral valve repair. On recent echocardiogram, he had moderate mitral regurgitation. 7. Chronic kidney disease. 8. Anxiety. 9. Cerebrovascular accident-large acute infarction of the left posterior carotid artery with focal areas of hemorrhage. 10. Hypercholesterolemia with most recent LDL of 32 and atorvastatin was reduced to 20 mg daily. 11. History of digitoxin toxicity in February 2020. 12. Vitreous hemorrhage of the left eye. 13. History of transient ischemic attack. PLAN: The atorvastatin was reduced to 20 mg daily since his last LDL was 32. Also, his amlodipine was reduced to 5 mg daily due to continued peripheral edema. His current chest discomfort is not cardiac in nature with 18 to 24 hours of continual chest pain with normal cardiac enzymes. I do not feel any further cardiac evaluation is warranted with just having an echo three weeks ago. Job ID: [id number] MTDD
[2020-09-27 13:59] VITALS: BMI 21.4
[2020-09-27] MEDS ORDERED: Rivaroxaban 15 MG TAB PO SCH (17:00)
[2020-09-27] MEDS ORDERED: Carvedilol 3.125 MG TAB PO SCH (17:00)
--- NOTE | 2020-09-27 18:01 | PDOC.DS.DS ---
Provider - Provider Date of Admission: 09/26/20 22:19 Date of Discharge: 09/27/20 Admitting Provider: Connor Torres MD Consultations: Cardiology Primary Care Physician: Mitchell Ansari MD Course - Hospital Course Hospital Course: Patient is a very pleasant 75-year-old male with a history of CAD status post CABG who presented to the hospital with complaints of shortness of breath and chest pain. His chest pain resolved. Troponins x3 were negative. Mildly elevated BNP. Patient was seen by cardiology just recommended follow-up in 3 weeks for echocardiogram. Patient's chest pain resolved after using his inhaler. Son called and updated. Patient states that he feels well he will be discharged home follow-up with primary care Resuscitation Status: 09/26/20 23:53 Resuscitation Status Routine Resuscitation Status: DNAR: NO Resuscitation Discussed with: Patient - Labs Lab Results: 09/27/20 01:53 09/27/20 01:53 Abnormal Lab Results - Last 48 hrs 09/26/20 21:02: Potassium 3.4 L, Carbon Dioxide 20 L, BUN 26 H, Creatinine 1.63 H, Globulin 2.3 L 09/26/20 21:02: B-Natriuretic Peptide 439.5 H 09/26/20 21:02: RBC 3.30 L, Hgb 11.4 L, Hct 34.7 L, MCV 105.0 H, MCH 34.6 H, Neutrophils % 78.1 H, Lymphocytes % 12.3 L, Neutrophils # 7.5 H, Monocytes # 0.8 H 09/27/20 01:53: Creatinine 1.42 H 09/27/20 01:53: RBC 3.46 L, Hgb 12.0 L, Hct 36.2 L, MCV 105.0 H, MCH 34.6 H, Lymphocytes % 15.9 L, Monocytes # 0.8 H - Physical Exam Vitals: Vital Signs (12 hours) Temp Pulse Resp BP Pulse Ox 09/27/20 16:33 97.6 F 57 L 16 121/63 96 09/27/20 13:39 97.5 F L 58 L 16 176/81 H 96 Weight Weight 149 lb Physical Exam: The patient was seen and examined on the day of discharge. Problem - Discharge Plan Assessment: 1. Chest pain atypical resolved #2 COPD stable #3 CAD status post CABG stable Plan - Discharge Medications Prescriptions: Atorvastatin Calcium [Lipitor] 20 mg PO HS #30 tab Home Medications: Medication Instructions Recorded Confirmed Type Amiodarone [Cordarone] 200 mg PO DAILY 08/01/19 03/28/20 History Amlodipine [Norvasc] 10 mg PO DAILY 12/07/19 03/28/20 History Carvedilol [Coreg] 3.125 mg PO BID 12/07/19 03/28/20 History Rivaroxaban [Xarelto] 15 mg PO QPM-WM 12/07/19 03/28/20 History Folic Acid [Folvite] 1 mg PO DAILY #30 tab 12/08/19 03/28/20 Rx Aspirin [Ecotrin Regular Strength] 325 mg PO DAILY tab 03/05/20 03/28/20 Rx Digoxin [Lanoxin] 62.5 mcg PO DAILY #30 tablet 03/05/20 03/28/20 Rx Sertraline HCl 25 mg PO DAILY 03/28/20 03/28/20 History Atorvastatin Calcium [Lipitor] 20 mg PO HS #30 tab 09/27/20 Rx Allergies: codeine Allergy (Severe, Verified 09/27/20 14:12) very sick to stoach - Discharge Instructions Activity:: Activity as Tolerated Nourishment:: Heart Healthy Diet - Follow up Plan Referrals: Mitchell Ansari MD [Primary Care Provider] - 7 Days (Please call and make follow- up appointment within 7 days. ) Disposition: HOME Quality - Care Measures CORE MEASURES:: N/A
[2020-09-27 19:55] VITALS: BP 130/68; TEMP 98.6
[2020-09-27] MEDS ORDERED: Atorvastatin Calcium 40 MG TAB PO SCH (21:00)
[2020-09-27] MEDS ORDERED: Atorvastatin Calcium 20 MG TAB PO SCH (21:00)
[2020-09-28] MEDS ORDERED: Furosemide 20 MG TAB PO SCH (09:00)
[2020-09-28] MEDS ORDERED: Digoxin 0.125 MG TAB PO SCH (09:00)
[2020-09-28] MEDS ORDERED: Amlodipine 5 MG TAB PO SCH (09:00)
[2020-09-28] MEDS ORDERED: Amiodarone 200 MG TAB PO SCH (09:00)
== END 2020-09-27 19:17 | disposition home or self-care (01) ==
LOC: ERS 20:36 → ERHOLD 22:19 → 2NO 09-27 13:32
PROVIDERS: ADMIT Student in an Organized Health Care Education/Training Program; ATTEND Internal Medicine
DX: R07.89 Other chest pain (principal); J44.1 Chronic obstructive pulmonary disease with (acute) exacerbation; I25.10 Atherosclerotic heart disease of native coronary artery without angina pectoris; I13.0 Hypertensive heart and chronic kidney disease with heart failure and stage 1 through stage 4 chronic kidney disease, or unspecified chronic kidney disease; N18.9 Chronic kidney disease, unspecified; I50.21 Acute systolic (congestive) heart failure; F17.210 Nicotine dependence, cigarettes, uncomplicated; I48.91 Unspecified atrial fibrillation; E78.00 Pure hypercholesterolemia, unspecified; I34.0 Nonrheumatic mitral (valve) insufficiency; F41.9 Anxiety disorder, unspecified; H43.12 Vitreous hemorrhage, left eye; F32.9 Major depressive disorder, single episode, unspecified; Z66 Do not resuscitate; Z86.73 Personal history of transient ischemic attack (TIA), and cerebral infarction without residual deficits; Z79.01 Long term (current) use of anticoagulants; Z79.82 Long term (current) use of aspirin; Z79.899 Other long term (current) drug therapy; Z88.5 Allergy status to narcotic agent; Z95.1 Presence of aortocoronary bypass graft; Z95.2 Presence of prosthetic heart valve; Z20.822 Contact with and (suspected) exposure to COVID-19
CPT/HCPCS: 71045; 80048; 80053; 82550; 83690; 83880; 84484 ×3; 85025 ×2; 93005; 94640 ×2; 99285; U0003; 36415; 87635; G0378; J7620

== ENCOUNTER 2021-05-04 18:04 | Inpatient (IN) | payer MEDICARE, BC ==
[2021-05-04 19:05] LABS: #Eosinphils 0.1 thou/uL (0.0-0.7); #Lymphocytes 1.4 thou/uL (1.20-3.40); #Monocytes 0.5 thou/uL (0.11-0.59); #Neutrophils 3.3 thou/uL (1.40-6.50); %Basophils 0.8 % (0.0-1.0); %Eosinophils 2.5 % (0.0-10.0); %Lymphocytes 25.7 % (21.0-51.0); %Monocytes 9.9 % (0.0-10.0); %Neutrophils 61.1 % (42.0-75.0); Mean Corpuscular HGB CONC 34.9 g/dL (32.0-36.0); Mean Corpuscular Hemoglobin 35.2 pg (27.0-31.0); Mean Platelet Volume 8.3 fL (7.4-10.4); Platelet Count 130 thou/uL (130-400); Red Blood Cell (RBC) Count 3.42 mill/uL (4.70-6.10); White Blood Cell (WBC) Count 5.3 thou/uL (4.8-10.8)
[2021-05-04 19:17] LABS: INR-International Normal Ratio 1.4; PTT 39.1 sec (22.9-36.1); Prothrombin Time 17.6 sec (12.0-14.7)
[2021-05-04 19:24] LABS: ALT (SGPT) 16 U/L (8-55); AST (SGOT) 36 U/L (5-34); Albumin 4.3 g/dL (3.4-4.8); Alcohol 115 mg/dL (Less than 10); Alkaline Phosphatase 62 U/L (40-110); Anion Gap 10 mmol/L (10-20); BUN (Urea Nitrogen) 16 mg/dL (8.4-25.7); Bilirubin, Total 0.7 mg/dL (0.2-1.2); CK (CPK) 68 U/L (30-200); Calc. Creatinine Clearance 0 mL/min (70-130); Calcium 9.3 mg/dL (7.8-10.44); Carbon Dioxide 27 mmol/L (23-31); Chloride 98 mmol/L (98-107); Globulin 2.7 g/dL (2.4-3.5); Glucose 76 mg/dL (83-110); Potassium 4.2 mmol/L (3.5-5.1); Sodium 131 mmol/L (136-145)
[2021-05-04] MEDS ORDERED: Lidocaine 1% PF 5 ML VIAL ONE (20:15)
[2021-05-04] MEDS ORDERED: Bacitracin 1 PK ONE (20:42)
[2021-05-04 21:12] LABS: Bilirubin Negative (Negative); Blood, Urine Negative (Negative); Clarity Clear (Clear); Glucose, Urine (Dipstick) Normal (Negative); Ketone, Urine Negative (Negative); Leukocyte Negative Leu/uL (Negative); Nitrite Negative (Negative); Protein, Urine (Dipstick) Negative (Neg-Trace); Specific Gravity, Urine 1.012 (1.002-1.036); Urobilinogen Normal mg/dL (Less than 2); pH, Urine 5.5 (5.0-9.0)
[2021-05-04 22:15] LABS: Troponin I Less than 0.010 ng/mL (< 0.028)
[2021-05-04] MEDS ORDERED: Lorazepam 2 MG/ML VIAL SLOW IVP PRN (22:17)
[2021-05-04] MEDS ORDERED: Acetaminophen 325 MG TAB PO PRN (22:26)
[2021-05-04] MEDS ORDERED: Ondansetron ODT 4 MG TAB PO PRN (22:26)
[2021-05-04] MEDS ORDERED: Ondansetron PF 4 MG/2 ML Vial IVP PRN (22:26)
[2021-05-04] MEDS ORDERED: Acetaminophen 650 MG Suppository PR PRN (22:26)
[2021-05-04 22:36] LABS: Magnesium 1.8 mg/dL (1.6-2.6)
[2021-05-04] MEDS ORDERED: Multivitamin W/ Minerals 1 TAB PO SCH (23:00)
[2021-05-04] MEDS ORDERED: Thiamine 100 MG TAB PO SCH (23:00)
[2021-05-05] MEDS ORDERED: Magnesium Sulfate 4 GM in Sodium Chloride 0.9% 250 ML 250 ML IVPB SCH (00:15)
[2021-05-05 00:27] LABS: Magnesium 1.8 mg/dL (1.6-2.6)
[2021-05-05 01:44] LABS: Troponin I Less than 0.010 ng/mL (< 0.028)
[2021-05-05 02:39] LABS: SARS-CoV-2 NAA Rapid Test Not Detected (NotDetected)
[2021-05-05] MEDS ORDERED: Multivitamin W/ Minerals 1 TAB ONE (03:46)
[2021-05-05] MEDS ORDERED: Thiamine 100 MG TAB ONE (03:46)
[2021-05-05] MEDS ORDERED: Nicotine 14 MG PATCH ONE (04:05)
[2021-05-05] MEDS: Nicotine 14 MG PATCH TD SCH ×2 (04:11→23:37)
[2021-05-05 04:47] LABS: #Eosinphils 0.1 thou/uL (0.0-0.7); #Lymphocytes 1.1 thou/uL (1.20-3.40); #Monocytes 0.5 thou/uL (0.11-0.59); #Neutrophils 4.8 thou/uL (1.40-6.50); %Basophils 0.7 % (0.0-1.0); %Eosinophils 2.1 % (0.0-10.0); %Lymphocytes 16.2 % (21.0-51.0); %Monocytes 8.1 % (0.0-10.0); %Neutrophils 72.9 % (42.0-75.0); Hemoglobin 13.1 g/dL (14.0-18.0); Mean Corpuscular HGB CONC 34.3 g/dL (32.0-36.0); Mean Corpuscular Hemoglobin 34.5 pg (27.0-31.0); Mean Platelet Volume 7.9 fL (7.4-10.4); Platelet Count 143 thou/uL (130-400); RBC Distribution Width 14.1 % (11.5-14.5); Red Blood Cell (RBC) Count 3.81 mill/uL (4.70-6.10); White Blood Cell (WBC) Count 6.6 thou/uL (4.8-10.8)
[2021-05-05 05:19] LABS: Anion Gap 12 mmol/L (10-20); BUN (Urea Nitrogen) 13 mg/dL (8.4-25.7); Calc. Creatinine Clearance 0 mL/min (70-130); Calcium 9.4 mg/dL (7.8-10.44); Carbon Dioxide 25 mmol/L (23-31); Chloride 106 mmol/L (98-107); Glucose 88 mg/dL (83-110); Magnesium 2.5 mg/dL (1.6-2.6); Potassium 4.2 mmol/L (3.5-5.1); Sodium 139 mmol/L (136-145)
[2021-05-05 08:12] VITALS: BMI 18.9
[2021-05-05] MEDS: Thiamine 100 MG TAB PO SCH (09:35)
[2021-05-05] MEDS: Multivitamin W/ Minerals 1 TAB PO SCH (09:35)
[2021-05-05 14:05] LABS: Digoxin 0.76 ng/mL (0.8-2.0)
[2021-05-05] MEDS: Atorvastatin Calcium 20 MG TAB PO SCH (20:06)
[2021-05-06] MEDS ORDERED: Non-Formulary Item 1 EACH (Sertraline Hcl [Sertraline Hcl] 50 MG Tablet) PO SCH (09:00)
[2021-05-06] MEDS: Amiodarone 200 MG TAB PO SCH (09:14)
[2021-05-06] MEDS: Aspirin 325 mg Enteric Coated Tablet PO SCH (09:14)
[2021-05-06] MEDS: Folic Acid 1 MG TAB PO SCH (09:15)
[2021-05-06] MEDS: Thiamine 100 MG TAB PO SCH (09:15)
[2021-05-06] MEDS: Multivitamin W/ Minerals 1 TAB PO SCH (09:15)
[2021-05-06 09:32] LABS: #Eosinphils 0.1 thou/uL (0.0-0.7); #Lymphocytes 1.3 thou/uL (1.20-3.40); #Monocytes 0.4 thou/uL (0.11-0.59); #Neutrophils 4.3 thou/uL (1.40-6.50); %Basophils 0.4 % (0.0-1.0); %Eosinophils 1.6 % (0.0-10.0); %Lymphocytes 20.7 % (21.0-51.0); %Monocytes 6.8 % (0.0-10.0); %Neutrophils 70.5 % (42.0-75.0); Hemoglobin 12.3 g/dL (14.0-18.0); Mean Corpuscular HGB CONC 33.5 g/dL (32.0-36.0); Mean Platelet Volume 7.9 fL (7.4-10.4); Platelet Count 151 thou/uL (130-400); RBC Distribution Width 14.1 % (11.5-14.5); Red Blood Cell (RBC) Count 3.62 mill/uL (4.70-6.10); White Blood Cell (WBC) Count 6.1 thou/uL (4.8-10.8)
[2021-05-06 09:54] LABS: ALT (SGPT) 14 U/L (8-55); AST (SGOT) 30 U/L (5-34); Albumin 3.8 g/dL (3.4-4.8); Alkaline Phosphatase 70 U/L (40-110); Anion Gap 9 mmol/L (10-20); BUN (Urea Nitrogen) 14 mg/dL (8.4-25.7); Bilirubin, Total 0.9 mg/dL (0.2-1.2); Calc. Creatinine Clearance 48 mL/min (70-130); Calcium 8.9 mg/dL (7.8-10.44); Carbon Dioxide 28 mmol/L (23-31); Chloride 106 mmol/L (98-107); Globulin 2.9 g/dL (2.4-3.5); Glucose 106 mg/dL (83-110); Potassium 3.7 mmol/L (3.5-5.1); Protein, Total 6.7 g/dL (5.8-8.1); Sodium 139 mmol/L (136-145)
[2021-05-06] MEDS: Rivaroxaban 15 MG TAB PO SCH (18:13)
[2021-05-06] MEDS: Atorvastatin Calcium 20 MG TAB PO SCH (21:06)
[2021-05-07] MEDS: Nicotine 14 MG PATCH TD SCH (00:51)
[2021-05-07 05:22] LABS: #Eosinphils 0.1 thou/uL (0.0-0.7); #Lymphocytes 1.4 thou/uL (1.20-3.40); #Monocytes 0.5 thou/uL (0.11-0.59); %Basophils 0.7 % (0.0-1.0); %Eosinophils 1.7 % (0.0-10.0); %Lymphocytes 22.3 % (21.0-51.0); %Monocytes 8.8 % (0.0-10.0); %Neutrophils 66.4 % (42.0-75.0); Hemoglobin 11.9 g/dL (14.0-18.0); Mean Corpuscular HGB CONC 32.7 g/dL (32.0-36.0); Mean Corpuscular Hemoglobin 33.3 pg (27.0-31.0); Mean Platelet Volume 8.1 fL (7.4-10.4); Platelet Count 140 thou/uL (130-400); RBC Distribution Width 14.2 % (11.5-14.5); Red Blood Cell (RBC) Count 3.58 mill/uL (4.70-6.10); White Blood Cell (WBC) Count 6.1 thou/uL (4.8-10.8)
[2021-05-07 05:39] LABS: ALT (SGPT) 12 U/L (8-55); AST (SGOT) 27 U/L (5-34); Albumin 3.6 g/dL (3.4-4.8); Alkaline Phosphatase 63 U/L (40-110); Anion Gap 11 mmol/L (10-20); BUN (Urea Nitrogen) 16 mg/dL (8.4-25.7); Bilirubin, Total 0.7 mg/dL (0.2-1.2); Calc. Creatinine Clearance 50 mL/min (70-130); Calcium 8.8 mg/dL (7.8-10.44); Carbon Dioxide 25 mmol/L (23-31); Chloride 107 mmol/L (98-107); Globulin 2.7 g/dL (2.4-3.5); Glucose 91 mg/dL (83-110); Potassium 3.5 mmol/L (3.5-5.1); Protein, Total 6.3 g/dL (5.8-8.1); Sodium 139 mmol/L (136-145)
[2021-05-07] MEDS: Aspirin 325 mg Enteric Coated Tablet PO SCH (09:41)
[2021-05-07] MEDS: Amiodarone 200 MG TAB PO SCH (09:41)
[2021-05-07] MEDS: Folic Acid 1 MG TAB PO SCH (09:41)
[2021-05-07] MEDS: Multivitamin W/ Minerals 1 TAB PO SCH (09:41)
[2021-05-07] MEDS: Thiamine 100 MG TAB PO SCH (09:41)
[2021-05-07] MEDS ORDERED: Amlodipine 5 MG TAB PO SCH (14:00)
[2021-05-07] MEDS: Rivaroxaban 15 MG TAB PO SCH (16:55)
[2021-05-07] MEDS: Atorvastatin Calcium 20 MG TAB PO SCH (21:02)
[2021-05-08] MEDS: Nicotine 14 MG PATCH TD SCH (02:39)
[2021-05-08] MEDS: Amiodarone 200 MG TAB PO SCH (08:08)
[2021-05-08] MEDS: Folic Acid 1 MG TAB PO SCH (08:08)
[2021-05-08] MEDS: Thiamine 100 MG TAB PO SCH (08:08)
[2021-05-08] MEDS: Aspirin 325 mg Enteric Coated Tablet PO SCH (08:08)
[2021-05-08] MEDS: Multivitamin W/ Minerals 1 TAB PO SCH (08:08)
[2021-05-08] MEDS ORDERED: Amlodipine 5 MG TAB PO SCH (09:00)
[2021-05-08 11:47] VITALS: TEMP 97.8
[2021-05-08 16:12] VITALS: BP 150/74
[2021-05-08] MEDS: Rivaroxaban 15 MG TAB PO SCH (16:43)
== END 2021-05-08 19:05 | disposition home or self-care (01) | DRG 312 ==
LOC: ERS 18:04 → ERHOLD 21:31 → 2SW 05-05 08:04 → OBSVTOIN 05-05 11:53 → 2NO 05-07 10:21
PROVIDERS: ADMIT Internal Medicine; ATTEND Internal Medicine
PROC: 0HQ1XZZ Repair Face Skin, External Approach (ICD-10-PCS; principal; 2021-05-05)
PROC: 0HQGXZZ Repair Left Hand Skin, External Approach (ICD-10-PCS; 2021-05-05)
DX: I95.1 Orthostatic hypotension (principal); E87.1 Hypo-osmolality and hyponatremia; I13.0 Hypertensive heart and chronic kidney disease with heart failure and stage 1 through stage 4 chronic kidney disease, or unspecified chronic kidney disease; I50.22 Chronic systolic (congestive) heart failure; Z20.822 Contact with and (suspected) exposure to COVID-19; R00.1 Bradycardia, unspecified; F17.210 Nicotine dependence, cigarettes, uncomplicated; I25.10 Atherosclerotic heart disease of native coronary artery without angina pectoris; Y90.5 Blood alcohol level of 100-119 mg/100 ml; I08.1 Rheumatic disorders of both mitral and tricuspid valves; N18.30 Chronic kidney disease, stage 3 unspecified; J44.9 Chronic obstructive pulmonary disease, unspecified; F10.229 Alcohol dependence with intoxication, unspecified; D53.9 Nutritional anemia, unspecified; I48.0 Paroxysmal atrial fibrillation; E78.5 Hyperlipidemia, unspecified; F41.9 Anxiety disorder, unspecified; S01.111A Laceration without foreign body of right eyelid and periocular area, initial encounter; S61.412A Laceration without foreign body of left hand, initial encounter; W18.30XA Fall on same level, unspecified, initial encounter; Y92.008 Other place in unspecified non-institutional (private) residence as the place of occurrence of the external cause; Z95.2 Presence of prosthetic heart valve; Z86.73 Personal history of transient ischemic attack (TIA), and cerebral infarction without residual deficits; Z88.5 Allergy status to narcotic agent; Z79.899 Other long term (current) drug therapy; Z79.01 Long term (current) use of anticoagulants; Z79.82 Long term (current) use of aspirin; Z98.890 Other specified postprocedural states; Z95.1 Presence of aortocoronary bypass graft; Z71.41 Alcohol abuse counseling and surveillance of alcoholic
CPT/HCPCS: 0240U; 12001; 12013; 36415; 70450; 71045; 72125; 80048; 80053; 80162; 80307; 81003; 82550; 83735; 84443; 84484; 85025; 85610; 85730; 87086; 93005; 93306; 93880; 96374; G0378; J3475; J7050